=== PATIENT | male | born 1950 | race Caucasian/White ===

== ENCOUNTER 2020-08-08 07:24 | Outpatient (REF) | payer MEDICARE, OTHER, SELFPAY ==
[2020-08-08 08:25] LABS: MANUAL DIFF FLAG NO
[2020-08-08 08:29] LABS: Basophils Percent Auto 0.6 % (0-2); Eosinophils Absolute Auto 0.4 X10*3/uL (0.0-0.4); Eosinophils Percent Auto 6.4 % (0-4); Hematocrit 42.7 % (42-52); Hemoglobin 13.6 g/dl (14.0-18.0); Imm Gran Abs Auto 0.02 X10*3/uL (0.00-0.03); Imm Gran Pct Auto 0.3 % (0.0-0.4); Lymphocytes Absolute Auto 2.3 X10*3/uL (1.2-4.9); Lymphocytes Percent Auto 33.5 % (20-40); Mean Corpuscular HGB Conc 31.9 g/dl (31.0-36.0); Mean Corpuscular Hemoglobin 30.4 pg (27.0-33.0); Mean Corpuscular Volume 95.5 fL (80-98); Mean Platelet Volume 9.6 fL (9.4-12.4); Monocytes Absolute Auto 0.5 X10*3/uL (0.1-1.2); Monocytes Percent Auto 6.7 % (2-11); Neutrophils Absolute Auto 3.6 X10*3/uL (2.0-8.3); Neutrophils Percent Auto 52.5 % (45-73); Platelet Count 259 X10*3/uL (160-400); Red Blood Count 4.47 X10*6/uL (4.60-5.80); Red Cell Distribution Width 13.2 % (11.0-16.0); White Blood Count 6.8 X10*3/uL (4.8-10.8)
[2020-08-08 08:44] LABS: Alanine Aminotransferase 28 U/L (0-40); Albumin Level 4.3 g/dL (3.5-5.0); Alkaline Phosphatase 72 U/L (39-117); Anion Gap 11 (12-20); Aspartate Amino Transferase 34 U/L (5-37); Bilirubin Total 0.4 mg/dL (0.0-1.0); Blood Urea Nitrogen 17 mg/dL (9-16); Calcium 8.8 mg/dL (8.4-10.2); Carbon Dioxide 30 mmol/L (22-29); Chloride 107 mmol/L (96-108); Cholesterol 156 mg/dL; Estimated Glomerular Filt Rate > 60; Glucose Random 109 mg/dL (60-115); HDL Cholesterol 66 mg/dL; LDL Cholesterol Calculated 75 mg/dl; Potassium 4.9 mmol/l (3.3-5.1); Sodium 143 mmol/L (135-145); Total Protein 6.5 g/dL (6.5-8.0); Triglycerides 75 mg/dL
[2020-08-08 09:07] LABS: Free T4 (Free Thyroxine) 0.99 ng/dL (0.71-1.85); Prostate Specific Antigen Scr 3.85 ng/mL (<0.05-4.0); Thyroid Stimulating Hormone 2.78 mIU/mL (0.32-4.0)
[2020-08-08 09:20] LABS: Folate 18.7 ng/mL (> or = 4.0); Vitamin B12 587 pg/mL (200-900)
== END 2020-08-08 07:25 | disposition home or self-care (01) ==
LOC: HO.LAB 07:24
PROVIDERS: Visit Provider Internal Medicine
DX: E78.00 Pure hypercholesterolemia, unspecified (principal); R73.01 Impaired fasting glucose; I25.10 Atherosclerotic heart disease of native coronary artery without angina pectoris
CPT/HCPCS: 36415; 80053; 80061; 82607; 82746; 84153; 84439; 84443; 85025

== ENCOUNTER 2020-09-11 11:31 | Outpatient (REF) | payer MEDICARE, OTHER, SELFPAY ==
[2020-09-11 12:58] LABS: MANUAL DIFF FLAG NO
[2020-09-11 13:05] LABS: Basophils Percent Auto 0.4 % (0-2); Eosinophils Absolute Auto 0.3 X10*3/uL (0.0-0.4); Eosinophils Percent Auto 3.7 % (0-4); Hematocrit 44.4 % (42-52); Hemoglobin 14.3 g/dl (14.0-18.0); Imm Gran Abs Auto 0.02 X10*3/uL (0.00-0.03); Imm Gran Pct Auto 0.3 % (0.0-0.4); Immature Retic Fraction 8.4 % (2.3-13.4); Lymphocytes Absolute Auto 2.5 X10*3/uL (1.2-4.9); Lymphocytes Percent Auto 37.3 % (20-40); Mean Corpuscular HGB Conc 32.2 g/dl (31.0-36.0); Mean Corpuscular Hemoglobin 30.2 pg (27.0-33.0); Mean Corpuscular Volume 93.7 fL (80-98); Monocytes Absolute Auto 0.4 X10*3/uL (0.1-1.2); Monocytes Percent Auto 6.6 % (2-11); Neutrophils Absolute Auto 3.5 X10*3/uL (2.0-8.3); Neutrophils Percent Auto 51.7 % (45-73); Platelet Count 249 X10*3/uL (160-400); Red Blood Count 4.74 X10*6/uL (4.60-5.80); Red Cell Distribution Width 13.2 % (11.0-16.0); Retic HGB Equivalent 34.5 pg (30.0-35.0); Reticulocyte Percent 1.8 % (0.5-1.8); Reticulocytes Absolute 0.084 X10*6/uL (0.026-0.095); White Blood Count 6.7 X10*3/uL (4.8-10.8)
[2020-09-11 13:51] LABS: Iron 114 mcg/dL (45-160); Percent Iron Saturation 40 % (15-50); Total Iron Binding Capacity 286 mcg/dL (228-428); Unsaturated Iron Binding 172 ug/dL
[2020-09-11 14:13] LABS: Ferritin 37 ng/mL (20-250)
== END 2020-09-11 11:32 | disposition home or self-care (01) ==
LOC: HO.LAB 11:31
PROVIDERS: PCP Internal Medicine; Visit Provider Internal Medicine
DX: D64.9 Anemia, unspecified (principal)
CPT/HCPCS: 36415; 82728; 83540; 85025; 85045

== ENCOUNTER → 2021-01-15 15:15 | Outpatient (BNVA) | payer MEDICARE, OTHER, SELFPAY | PROVIDERS: PCP Internal Medicine; Visit Provider Urology | DX: Z13.89 Encounter for screening for other disorder (principal) | CPT/HCPCS: Q3014 ==

== ENCOUNTER 2021-08-05 06:54 | Outpatient (REF) | payer MEDICARE, OTHER, SELFPAY ==
[2021-08-05 07:02] LABS: MANUAL DIFF FLAG NO
[2021-08-05 07:29] LABS: Basophils Percent Auto 0.6 % (0-2); Eosinophils Absolute Auto 0.3 X10*3/uL (0.0-0.4); Eosinophils Percent Auto 4.7 % (0-4); Hematocrit 42.6 % (42.0-52.0); Hemoglobin 13.9 g/dl (14.0-18.0); Imm Gran Abs Auto 0.02 X10*3/uL (0.00-0.03); Imm Gran Pct Auto 0.3 % (0.0-0.4); Lymphocytes Percent Auto 40.9 % (20-40); Mean Corpuscular HGB Conc 32.6 g/dl (31.0-36.0); Mean Corpuscular Hemoglobin 29.6 pg (27.0-33.0); Mean Corpuscular Volume 90.8 fL (80.0-98.0); Mean Platelet Volume 9.2 fL (9.4-12.4); Monocytes Absolute Auto 0.5 X10*3/uL (0.1-1.2); Monocytes Percent Auto 7.5 % (2-11); Neutrophils Absolute Auto 3.34 x10*3/uL (2.0-8.3); Platelet Count 252 X10*3/uL (160-400); Red Blood Count 4.69 X10*6/uL (4.60-5.80); White Blood Count 7.2 X10*3/uL (4.8-10.8)
[2021-08-05 07:51] LABS: Estimated Average Glucose 117 mg/dL; Hemoglobin A1c % 5.7 %
[2021-08-05 07:57] LABS: Alanine Aminotransferase 29 U/L (0-40); Albumin Level 4.3 g/dL (3.5-5.0); Alkaline Phosphatase 69 U/L (39-117); Anion Gap 10 (12-20); Aspartate Amino Transferase 33 U/L (5-37); Bilirubin Total 0.6 mg/dL (0.0-1.0); Blood Urea Nitrogen 15 mg/dL (9-16); Calcium 9.2 mg/dL (8.4-10.2); Carbon Dioxide 30 mmol/L (22-29); Chloride 106 mmol/L (96-108); Cholesterol 146 mg/dL; Estimated Glomerular Filt Rate > 60; Glucose Random 103 mg/dL (60-115); HDL Cholesterol 52 mg/dL; LDL Cholesterol Calculated 77 mg/dl; Potassium 4.7 mmol/L (3.3-5.1); Sodium 141 mmol/L (135-145); Total Protein 6.4 g/dL (6.5-8.0); Triglycerides 89 mg/dL
[2021-08-05 08:13] LABS: Free T4 (Free Thyroxine) 0.94 ng/dL (0.71-1.85)
[2021-08-05 08:23] LABS: Thyroid Stimulating Hormone 3.87 uIU/mL (0.32-4.0)
[2021-08-05 08:48] LABS: Folate > 20.0 ng/mL (> or = 4.0); Vitamin B12 611 pg/mL (200-900)
[2021-08-06 13:11] LABS: Free Prostate Spec Ag 1.1 ng/mL; Percent Free Prostate Spec Ag 26 % (calc) (>25); Prostate Specific Ag Total 4.2 ng/mL (< OR = 4.0)
== END 2021-08-05 06:55 | disposition home or self-care (01) ==
LOC: HO.LAB 06:54
PROVIDERS: Urology; PCP Internal Medicine; Visit Provider Internal Medicine
DX: E78.00 Pure hypercholesterolemia, unspecified (principal); I25.10 Atherosclerotic heart disease of native coronary artery without angina pectoris; R73.01 Impaired fasting glucose; R97.20 Elevated prostate specific antigen [PSA]; N40.1 Benign prostatic hyperplasia with lower urinary tract symptoms; N13.8 Other obstructive and reflux uropathy; Z12.5 Encounter for screening for malignant neoplasm of prostate
CPT/HCPCS: 36415; 80053; 80061; 82607; 82746; 83036; 84153; 84154; 84439; 84443; 85025

== ENCOUNTER 2022-01-08 09:47 | Outpatient (REF) | payer MEDICARE, OTHER, SELFPAY ==
[2022-01-08 12:03] LABS: PSA,Total (Free>4and<10) 4.57 ng/mL (0.00-4.00)
[2022-01-09 12:07] LABS: Free Prostate Spec Ag 1.1 ng/mL; Percent Free Prostate Spec Ag 27 % (calc) (>25); Prostate Specific Ag Total 4.1 ng/mL (< OR = 4.0)
== END 2022-01-08 09:48 | disposition home or self-care (01) ==
LOC: HO.LAB 09:47
PROVIDERS: PCP Internal Medicine; Visit Provider Urology
DX: Z12.5 Encounter for screening for malignant neoplasm of prostate (principal); R97.20 Elevated prostate specific antigen [PSA]
CPT/HCPCS: 36415; 84153; 84154

== ENCOUNTER → 2022-01-16 14:39 | Outpatient (BNVA) | payer MEDICARE, OTHER, SELFPAY | PROVIDERS: PCP Internal Medicine; Visit Provider Urology | DX: N40.1 Benign prostatic hyperplasia with lower urinary tract symptoms (principal); N13.8 Other obstructive and reflux uropathy; R97.20 Elevated prostate specific antigen [PSA] | CPT/HCPCS: 99212 ==

== ENCOUNTER 2022-03-04 07:10 | Day surgery (SDC) | payer MEDICARE, OTHER, SELFPAY ==
[2022-02-26 11:11] VITALS: BMI 26.1
--- NOTE | 2022-03-03 12:48 | HO.ANESPROP2 ---
Documented by User: Kalyani Green NP 03/03/22 12:50 HPI - Anesthesia Eval Consult details Narrative: 71yo M for Colonoscopy stable at yearly cardiac visit 03/2021 COUNT INCLUDES THE [facility] Active Problems Active Problems: All Active Problems (Updated 02/26/22 @ 11:16 by Fidelina Gunn, GOYO) Annual physical exam (Acute) Anemia (Acute) Annual physical exam (Acute) Impacted cerumen of both ears (Acute) Hemorrhoid (Acute) BPH w urinary obs/LUTS (Acute) Foot pain, left (Acute) PSA elevation (Acute) Cardiomyopathy (Acute) Hypercholesterolemia (Acute) Impaired fasting glucose (Acute) Coronary artery disease (Acute) Past Medical History Medical History Cardiomyopathy Coronary artery disease COVID-19 vaccine series completed Hypercholesterolemia Impaired fasting glucose Mercury poisoning Patent foramen ovale PSA elevation Skin cancer Thrombophlebitis Family History Family History Father CHF (congestive heart failure) CAD (coronary artery disease) CVD (cardiovascular disease) Skin cancer Mother CVD (cardiovascular disease) Acute CVA (cerebrovascular accident) Paternal Grandfather Acute CVA (cerebrovascular accident) Maternal Grandfather CAD (coronary artery disease) Surgical History Surgical History H/O colonoscopy History of surgery Social History Social History Housing: House Alcohol intake: current Patient Tobacco Use Status: Never used Tobacco e-Cigarette/Vaping Use: Never Used Second Hand Smoke Exposure: No Use of substances other than those prescribed or required for medical reasons: No Are you DNR?: No Advance Directives: No Advance Directives Information Provided: Yes Current occupational status: retired [employer] Allergies Allergy/AdvReac Type Severity Reaction Status Date / Time No Known Allergies Allergy Verified 01/16/22 14:43 Home Medications Medication Instructions Recorded Confirmed Last Taken Type aspirin 81 mg tablet,delayed 81 mg PO DAILY 08/12/20 02/26/22 Unknown History release (Adult Aspirin Regimen) multivitamin,tx-minerals 1 cap PO DAILY 08/12/20 02/26/22 Unknown History (Multi-Vitamin HP/Minerals) cetirizine 10 mg tablet (Zyrtec) 10 mg PO DAILY PRN 08/13/21 02/26/22 Unknown History Exam Exam Date and Time: March 03, 2022 1248 Height,Weight and Vital Signs: Height 5 ft 5.25 in Weight 71.668 kg Assessment and Plan Assessment Anesthesia Assessment: Chart Reviewed Documented by User: Vickie Shirley MD 03/04/22 09:28 PMFSH Active Problems Active Problems: All Active Problems (Updated 02/26/22 @ 11:16 by Fidelina Gunn RN) Annual physical exam (Acute) Anemia (Acute) Annual physical exam (Acute) Impacted cerumen of both ears (Acute) Hemorrhoid (Acute) BPH w urinary obs/LUTS (Acute) Foot pain, left (Acute) PSA elevation (Acute) Cardiomyopathy (Acute) Hypercholesterolemia (Acute) Impaired fasting glucose (Acute) Coronary artery disease. Denies recent chest pain Past Medical History Medical History Cardiomyopathy Coronary artery disease COVID-19 vaccine series completed Hypercholesterolemia Impaired fasting glucose Mercury poisoning Patent foramen ovale PSA elevation Skin cancer Thrombophlebitis Family History Family History Father CHF (congestive heart failure) CAD (coronary artery disease) CVD (cardiovascular disease) Skin cancer Mother CVD (cardiovascular disease) Acute CVA (cerebrovascular accident) Paternal Grandfather Acute CVA (cerebrovascular accident) Maternal Grandfather CAD (coronary artery disease) Family history of problems with anesthesia: No Surgical History Surgical History H/O colonoscopy History of surgery History of Problems with Anesthesia: No Social History Social History Housing: House Alcohol intake: current Patient Tobacco Use Status: Never used Tobacco e-Cigarette/Vaping Use: Never Used Second Hand Smoke Exposure: No Use of substances other than those prescribed or required for medical reasons: No Are you DNR?: No Advance Directives: No Advance Directives Information Provided: Yes Current occupational status: retired Meds Allergies Allergy/AdvReac Type Severity Reaction Status Date / Time No Known Allergies Allergy Verified 01/16/22 14:43 Home Medications Medication Instructions Recorded Confirmed Last Taken Type aspirin 81 mg tablet,delayed 81 mg PO DAILY 08/12/20 02/26/22 Unknown History release (Adult Aspirin Regimen) multivitamin,tx-minerals 1 cap PO DAILY 08/12/20 02/26/22 Unknown History (Multi-Vitamin HP/Minerals) cetirizine 10 mg tablet (Zyrtec) 10 mg PO DAILY PRN 08/13/21 02/26/22 Unknown History Exam Height,Weight and Vital Signs: Height 5 ft 5.25 in Weight 71.668 kg Vital Signs Temp Pulse Resp BP Pulse Ox 03/04/22 07:52 97.8 F 66 17 135/84 95 Airway Mallampati Class: II TM Dist: >3cm Neck ROM: Full Loose/Missing/Broken Teeth: No Heart: RRR Lungs: CTAB Assessment and Plan Assessment Anesthesia Assessment: Anesthesia Plan Discussed Final Anesthetic Review Family History of Problems with Anesthesia: No History of Problems with Anesthesia: No NPO: Yes ASA Class: III Final Preanesthetic Review: No Changes in Pt Med Stat, Meds/Allgs Chart Reviewed, Consent Obtained/Reviewed and Anes Risks/Benef Reviewed Patient Risk: Intermediate Procedure Risk: Low Assessment/Block/Sedation in SS: Assess/Block/Sedation-SS Anesthetic Plan Anesthetic Plan: MAC: Disposition: Standard PACU
[2022-03-04 07:25] VITALS: BMI 25.7
[2022-03-04 07:52] VITALS: BP 135/84; PULSE 66; RESP 17; TEMP 36.6; O2SAT 95
[2022-03-04] MEDS: Lactated Ringers 1,000 ML 50 ML IVCONT (08:08)
--- NOTE | 2022-03-04 10:19 | PM.OP ---
Brief Operative Note Date of Service: 03/04/22 Pre-op diagnosis: Screening Post-op diagnosis: other (Polyp) Procedure: Colonoscopy to the cecum with hot snare polypectomy and placement of 1 Resolution clip Surgeon: Cyrus Garvey Anesthesia: MAC Was an Picker Machine Operator used for this Procedure?: No Estimated blood loss (mL): 0 Pathology: other (A. Ascending colon polyp) Condition: stable Disposition: PACU
[2022-03-04 10:20] VITALS: BP 99/58; PULSE 61; RESP 16; TEMP 36.2; O2SAT 98
[2022-03-04 10:35] VITALS: BP 135/73; PULSE 56; RESP 16; TEMP 36.2; O2SAT 100
--- NOTE | 2022-03-04 10:52 | OP_ITS ---
SURGEON: Cyrus Garvey MD INDICATIONS: The patient presents for evaluation of personal history of tubular adenoma of the colon and colorectal cancer screening. Full consent was obtained from him for this, including risks of bleeding and perforation. PREOPERATIVE DIAGNOSIS: POSTOPERATIVE DIAGNOSIS: PROCEDURE PERFORMED: Colonoscopy to the cecum with hot snare polypectomy and placement of 1 Resolution clip. ESTIMATED BLOOD LOSS: COMPLICATIONS: ANESTHESIA: Monitored anesthesia care. ASSISTANTS: SPECIMENS: PREOPERATIVE DIAGNOSES: Personal history of tubular adenoma of the colon and colorectal cancer screening. POSTOPERATIVE DIAGNOSES: Personal history of tubular adenoma of the colon and colorectal cancer screening, colon polyp, diverticulosis, internal hemorrhoids. DESCRIPTION OF PROCEDURE: The patient was placed in the left lateral decubitus position. The digital rectal exam revealed some external hemorrhoidal tissue and a skin tag. The Olympus video pediatric colonoscope was entered into the rectum and advanced easily to the cecum. Once in the cecum, I did identify normal-appearing cecal pouch with appendiceal orifice and a normal-appearing ileocecal valve. The entire cecum and ileocecal valve appeared normal. The scope was then slowly withdrawn assessing all mucosal surfaces carefully. Preparation was excellent. In the proximal ascending colon was an approximately 10 mm polyp, which was removed by hot snare polypectomy and recovered by suction. The polypectomy site appeared clean, without any sign of residual polyp nor bleeding. A single Resolution clip was applied with good deployment and good hemostasis. I did not visualize any other polyps, colitis, or angiodysplasia. There was a mild amount of sigmoid diverticulosis. In the rectum, scope was retroflexed visualizing small internal hemorrhoids, but no other pathology. The rectal mucosa appeared normal. The scope was straightened and withdrawn from the patient. He tolerated the procedure well and was returned to the recovery area in stable condition. IMPRESSION: 1. Colon polyp. 2. Diverticulosis. 3. Internal and external hemorrhoids. PLAN: The results of the pathology will be checked. I would recommend a repeat colonoscopy in 5 years. He was advised to resume his aspirin in 48 hours. He will otherwise see me on a p.r.n. basis. MD ANJEL Bolton/LISA / [id number] MTDRosa M
== END 2022-03-04 11:25 | disposition home or self-care (01) ==
PROVIDERS: PCP Internal Medicine; Visit Provider Internal Medicine
PROC: 0DJD8ZZ Inspection of Lower Intestinal Tract, Via Natural or Artificial Opening Endoscopic (ICD-10-PCS; CPT 45378; principal; 2022-03-04 08:20)
DX: Z12.11 Encounter for screening for malignant neoplasm of colon (principal); Z86.010 Personal history of colon polyps; D12.2 Benign neoplasm of ascending colon; K57.30 Diverticulosis of large intestine without perforation or abscess without bleeding; K64.8 Other hemorrhoids; K64.4 Residual hemorrhoidal skin tags; I42.9 Cardiomyopathy, unspecified; E78.5 Hyperlipidemia, unspecified; Z79.82 Long term (current) use of aspirin; Z79.899 Other long term (current) drug therapy; Z85.828 Personal history of other malignant neoplasm of skin
CPT/HCPCS: 45385; 88305

== ENCOUNTER 2022-07-14 09:33 | Outpatient (REF) | payer MEDICARE, OTHER, SELFPAY ==
[2022-07-14 10:56] LABS: PSA,Total (Free>4and<10) 2.07 ng/mL (0.00-4.00)
== END 2022-07-14 09:34 | disposition home or self-care (01) ==
LOC: HO.LAB 09:33
PROVIDERS: PCP Internal Medicine; Visit Provider Urology
DX: Z12.5 Encounter for screening for malignant neoplasm of prostate (principal); N13.8 Other obstructive and reflux uropathy; R97.20 Elevated prostate specific antigen [PSA]; N40.1 Benign prostatic hyperplasia with lower urinary tract symptoms
CPT/HCPCS: 36415; 84153

== ENCOUNTER → 2022-07-28 15:43 | Outpatient (BNVA) | payer MEDICARE, OTHER, SELFPAY | PROVIDERS: PCP Internal Medicine; Visit Provider Urology | DX: N40.1 Benign prostatic hyperplasia with lower urinary tract symptoms (principal); N13.8 Other obstructive and reflux uropathy; R97.20 Elevated prostate specific antigen [PSA] | CPT/HCPCS: 99212 ==

== ENCOUNTER 2022-08-25 08:06 | Outpatient (REF) | payer MEDICARE, OTHER, SELFPAY ==
[2022-08-25 08:21] LABS: MANUAL DIFF FLAG NO
[2022-08-25 08:48] LABS: Basophils Percent Auto 0.4 % (0-2); Eosinophils Absolute Auto 0.3 X10*3/uL (0.0-0.4); Eosinophils Percent Auto 4.3 % (0-4); Hematocrit 43.5 % (42.0-52.0); Hemoglobin 13.9 g/dl (14.0-18.0); Imm Gran Abs Auto 0.03 X10*3/uL (0.00-0.03); Imm Gran Pct Auto 0.4 % (0.0-0.4); Lymphocytes Absolute Auto 2.7 X10*3/uL (1.2-4.9); Lymphocytes Percent Auto 36.4 % (20-40); Mean Corpuscular Hemoglobin 29.5 pg (27.0-33.0); Mean Corpuscular Volume 92.4 fL (80.0-98.0); Mean Platelet Volume 9.2 fL (9.4-12.4); Monocytes Absolute Auto 0.5 X10*3/uL (0.1-1.2); Monocytes Percent Auto 6.7 % (2-11); Neutrophils Absolute Auto 3.8 x10*3/uL (2.0-8.3); Neutrophils Percent Auto 51.8 % (45-73); Platelet Count 311 X10*3/uL (160-400); Red Blood Count 4.71 X10*6/uL (4.60-5.80); Red Cell Distribution Width 13.2 % (11.0-16.0); White Blood Count 7.4 X10*3/uL (4.8-10.8)
[2022-08-25 08:52] LABS: Estimated Average Glucose 120 mg/dL; Hemoglobin A1c % 5.8 %
[2022-08-25 09:22] LABS: Alanine Aminotransferase 33 U/L (0-40); Albumin Level 4.1 g/dL (3.5-5.0); Alkaline Phosphatase 77 U/L (39-117); Anion Gap 12 (12-20); Aspartate Amino Transferase 36 U/L (5-37); Bilirubin Total 0.5 mg/dL (0.0-1.0); Blood Urea Nitrogen 20 mg/dL (9-16); Calcium 9.1 mg/dL (8.4-10.2); Carbon Dioxide 28 mmol/L (22-29); Chloride 106 mmol/L (96-108); Cholesterol 139 mg/dL; Estimated Glomerular Filt Rate > 60; Glucose Random 107 mg/dL (60-115); HDL Cholesterol 48 mg/dL; LDL Cholesterol Calculated 81 mg/dl; Potassium 5.1 mmol/L (3.3-5.1); Sodium 141 mmol/L (135-145); Total Protein 6.3 g/dL (6.5-8.0); Triglycerides 52 mg/dL
[2022-08-25 09:43] LABS: Free T4 (Free Thyroxine) 0.98 ng/dL (0.71-1.85); Thyroid Stimulating Hormone 2.51 uIU/mL (0.32-4.0)
[2022-08-25 10:16] LABS: Folate 15.5 ng/mL (> or = 4.0); Vitamin B12 646 pg/mL (200-900)
== END 2022-08-25 08:07 | disposition home or self-care (01) ==
LOC: HO.LAB 08:06
PROVIDERS: PCP Internal Medicine; Visit Provider Internal Medicine
DX: R73.01 Impaired fasting glucose (principal); E78.00 Pure hypercholesterolemia, unspecified
CPT/HCPCS: 36415; 80053; 80061; 82607; 82746; 83036; 84439; 84443; 85025

== ENCOUNTER 2023-01-12 11:03 | Outpatient (REF) | payer MEDICARE, OTHER, SELFPAY ==
[2023-01-12 12:51] LABS: PSA,Total (Free>4and<10) 2.34 ng/mL (0.00-4.00)
== END 2023-01-12 11:04 | disposition home or self-care (01) ==
LOC: HO.LAB 11:03
PROVIDERS: PCP Internal Medicine; Visit Provider Urology
DX: N40.1 Benign prostatic hyperplasia with lower urinary tract symptoms (principal); N13.8 Other obstructive and reflux uropathy; Z12.5 Encounter for screening for malignant neoplasm of prostate
CPT/HCPCS: 36415; 84153

== ENCOUNTER → 2023-01-26 13:50 | Outpatient (BNVA) | payer MEDICARE, OTHER, SELFPAY | PROVIDERS: PCP Internal Medicine; Visit Provider Urology | DX: N40.1 Benign prostatic hyperplasia with lower urinary tract symptoms (principal); N13.8 Other obstructive and reflux uropathy; R97.20 Elevated prostate specific antigen [PSA] | CPT/HCPCS: 51798; 99212 ==

== ENCOUNTER 2023-03-27 10:12 | Emergency (ER) | payer MEDICARE, OTHER, SELFPAY ==
[2023-03-27 10:18] VITALS: BP 137/68; PULSE 60; RESP 14; TEMP 36.2; O2SAT 99; BMI 25.3
[2023-03-27 11:03] LABS: MANUAL DIFF FLAG NO
[2023-03-27 11:05] LABS: Basophils Percent Auto 0.6 % (0-2); Eosinophils Absolute Auto 0.5 X10*3/uL (0.0-0.4); Eosinophils Percent Auto 6.6 % (0-4); Hematocrit 43.7 % (42.0-52.0); Hemoglobin 14.5 g/dl (14.0-18.0); Imm Gran Abs Auto 0.01 X10*3/uL (0.00-0.03); Imm Gran Pct Auto 0.1 % (0.0-0.4); Lymphocytes Absolute Auto 2.7 X10*3/uL (1.2-4.9); Lymphocytes Percent Auto 37.7 % (20-40); Mean Corpuscular HGB Conc 33.2 g/dl (31.0-36.0); Mean Corpuscular Hemoglobin 30.3 pg (27.0-33.0); Mean Corpuscular Volume 91.4 fL (80.0-98.0); Mean Platelet Volume 9.2 fL (9.4-12.4); Monocytes Absolute Auto 0.5 X10*3/uL (0.1-1.2); Neutrophils Absolute Auto 3.4 x10*3/uL (2.0-8.3); Platelet Count 220 X10*3/uL (160-400); Red Blood Count 4.78 X10*6/uL (4.60-5.80); Red Cell Distribution Width 12.9 % (11.0-16.0); White Blood Count 7.1 X10*3/uL (4.8-10.8)
[2023-03-27 11:12] LABS: INTERNATIONAL NORM RATIO 1.1 (0.9-1.1); Prothrombin Time 13.2 SEC (10.0-13.1)
[2023-03-27 11:24] LABS: Alanine Aminotransferase 32 U/L (0-40); Albumin Level 4.3 g/dL (3.5-5.0); Alkaline Phosphatase 66 U/L (39-117); Anion Gap 12 (12-20); Aspartate Amino Transferase 37 U/L (5-37); Blood Urea Nitrogen 17 mg/dL (9-16); Calcium 9.8 mg/dL (8.4-10.2); Carbon Dioxide 27 mmol/L (22-29); Chloride 106 mmol/L (96-108); Creatinine Clr Calc Pharmacy 63.1; Estimated Glomerular Filt Rate > 60; Glucose Random 83 mg/dL (60-115); Potassium 4.5 mmol/L (3.3-5.1); Sodium 140 mmol/L (135-145); Total Protein 6.7 g/dL (6.5-8.0)
--- NOTE | 2023-03-27 11:33 | ED_ITS ---
HPI - Wound/Laceration General Chief Complaint: Wound/Laceration Stated Complaint: facial laceration Time Seen by Provider: 03/27/23 11:04 History of Present Illness HPI narrative: patient who is on Eliquis complains of bleeding from abrasion to the lower lip which was hard to control at home and he comes here for evaluation The bleeding did stop prior to when I saw him, he denies any other bleeding or bruising Related Data Home Medications Medication Instructions Recorded Confirmed aspirin 81 mg tablet,delayed 81 mg PO DAILY 08/12/20 01/26/23 release (Adult Aspirin Regimen) multivitamin,tx-minerals 1 cap PO DAILY 08/12/20 01/26/23 (Multi-Vitamin HP/Minerals capsule) apixaban 5 mg tablet 5 mg PO BID 01/25/23 01/26/23 mometasone 50 mcg/actuation nasal 2 spray intranasal BID 01/25/23 01/26/23 spray Previous Rx's Medication Instructions Recorded atorvastatin 80 mg tablet 80 mg PO DAILY #90 tabs 07/02/22 metoprolol succinate 25 mg 25 mg PO DAILY #90 tabs 01/25/23 tablet,extended release 24 hr finasteride 5 mg tablet 5 mg PO DAILY 90 days #90 tabs 01/26/23 lisinopril 10 mg tablet 10 mg PO DAILY #90 tabs 02/04/23 ezetimibe 10 mg tablet (Zetia) 10 mg PO DAILY 90 days #90 tabs 03/02/23 Allergies Allergy/AdvReac Type Severity Reaction Status Date / Time No Known Allergies Allergy Verified 01/26/23 13:53 [facility] Past Medical History Source: nursing notes reviewed Medical History Annual physical exam Cardiomyopathy Coronary artery disease COVID-19 vaccine series completed Hypercholesterolemia Impaired fasting glucose Mercury poisoning Patent foramen ovale PSA elevation Skin cancer Thrombophlebitis Surgical History H/O colonoscopy History of surgery Family History Family History Father CHF (congestive heart failure) CAD (coronary artery disease) CVD (cardiovascular disease) Skin cancer Mother CVD (cardiovascular disease) Acute CVA (cerebrovascular accident) Paternal Grandfather Acute CVA (cerebrovascular accident) Maternal Grandfather CAD (coronary artery disease) Social History Social History Housing: House Alcohol intake: current Patient Tobacco Use Status: Never used Tobacco e-Cigarette/Vaping Use: Never Used Second Hand Smoke Exposure: No Advance Directives: Yes Advance Directives Information Provided: No Advance Directives on File: No Current occupational status: retired Cognitive needs: No Hearing needs: No Vision needs: Yes Physical Exam Vital Signs: Vital Signs: Last Vital Signs Temp 97.1 F 03/27/23 10:18 Pulse 60 03/27/23 10:18 Resp 14 03/27/23 10:18 BP 137/68 03/27/23 10:18 Pulse Ox 99 03/27/23 10:18 O2 Del Method Room Air 03/27/23 10:18 BMI result Body Mass Index 25.3 general appearance is com cooperative no distress Head is normocephalic atraumatic The exam of the face there is a small blood blister on the lower lip there is no active bleeding there is no suturable wound No respiratory distress Skin no obvious rash Extremities full range of motion x4 Course Course Course Narrative: CBC chemistry and INR all checked from triage and no acute abnormality Patient observed in the ER for half an hour with no recurrence of bleeding He is advised to apply direct pressure with a piece of gauze of any bleeding starts and he is discharged advised to continue Eliquis as scheduled Medical Decision Making Lab Data MDM Lab Attestation statement: I reviewed the patient's lab results. 03/27/23 11:00 03/27/23 11:00 Labs: Lab Results 03/27/23 03/27/23 03/27/23 Range/Units 11:00 11:00 11:00 WBC 7.1 (4.8-10.8) X10*3/uL RBC 4.78 (4.60-5.80) X10*6/uL Hgb 14.5 (14.0-18.0) g/dl Hct 43.7 (42.0-52.0) % MCV 91.4 (80.0-98.0) fL MCH 30.3 (27.0-33.0) pg MCHC 33.2 (31.0-36.0) g/dl RDW 12.9 (11.0-16.0) % Plt Count 220 D (160-400) X10*3/uL MPV 9.2 L (9.4-12.4) fL Immature Gran % (Auto) 0.1 (0.0-0.4) % Neut % (Auto) 48.0 (45-73) % Lymph % (Auto) 37.7 (20-40) % [place] % (Auto) 7.0 (2-11) % Eos % (Auto) 6.6 H (0-4) % Baso % (Auto) 0.6 (0-2) % Lymph # (Auto) 2.7 (1.2-4.9) X10*3/uL [place] # (Auto) 0.5 (0.1-1.2) X10*3/uL Eos # (Auto) 0.5 H (0.0-0.4) X10*3/uL Baso # (Auto) 0.0 (0.0-0.2) X10*3/uL Abs Immat Gran (auto) 0.01 (0.00-0.03) X10*3/uL Absolute Neuts (auto) 3.4 (2.0-8.3) x10*3/uL Absolute Nucleated RBC 0.000 (0.0-0.012) X10*3/uL Nucleated RBC % (auto) 0.0 (0.0-0.2) /100WBC PT (10.0-13.1) SEC INR (0.9-1.1) APTT 30.0 (26.0-36.4) SEC Sodium 140 (135-145) mmol/L Potassium 4.5 (3.3-5.1) mmol/L Chloride 106 (96-108) mmol/L Carbon Dioxide 27 (22-29) mmol/L Anion Gap 12 (12-20) BUN 17 H (9-16) mg/dL Creatinine 0.94 (0.5-1.4) mg/dL Estim Creat Clear Calc 63.1 Estimated GFR > 60 Random Glucose 83 (60-115) mg/dL Calcium 9.8 D (8.4-10.2) mg/dL Total Bilirubin 1.0 (0.0-1.0) mg/dL AST 37 (5-37) U/L ALT 32 (0-40) U/L Alkaline Phosphatase 66 (39-117) U/L Total Protein 6.7 (6.5-8.0) g/dL Albumin 4.3 (3.5-5.0) g/dL 03/27/23 Range/Units 11:00 WBC (4.8-10.8) X10*3/uL RBC (4.60-5.80) X10*6/uL Hgb (14.0-18.0) g/dl Hct (42.0-52.0) % MCV (80.0-98.0) fL MCH (27.0-33.0) pg MCHC (31.0-36.0) g/dl RDW (11.0-16.0) % Plt Count (160-400) X10*3/uL MPV (9.4-12.4) fL Immature Gran % (Auto) (0.0-0.4) % Neut % (Auto) (45-73) % Lymph % (Auto) (20-40) % [place] % (Auto) (2-11) % Eos % (Auto) (0-4) % Baso % (Auto) (0-2) % Lymph # (Auto) (1.2-4.9) X10*3/uL [place] # (Auto) (0.1-1.2) X10*3/uL Eos # (Auto) (0.0-0.4) X10*3/uL Baso # (Auto) (0.0-0.2) X10*3/uL Abs Immat Gran (auto) (0.00-0.03) X10*3/uL Absolute Neuts (auto) (2.0-8.3) x10*3/uL Absolute Nucleated RBC (0.0-0.012) X10*3/uL Nucleated RBC % (auto) (0.0-0.2) /100WBC PT 13.2 H (10.0-13.1) SEC INR 1.1 (0.9-1.1) APTT (26.0-36.4) SEC Sodium (135-145) mmol/L Potassium (3.3-5.1) mmol/L Chloride (96-108) mmol/L Carbon Dioxide (22-29) mmol/L Anion Gap (12-20) BUN (9-16) mg/dL Creatinine (0.5-1.4) mg/dL Estim Creat Clear Calc Estimated GFR Random Glucose (60-115) mg/dL Calcium (8.4-10.2) mg/dL Total Bilirubin (0.0-1.0) mg/dL AST (5-37) U/L ALT (0-40) U/L Alkaline Phosphatase (39-117) U/L Total Protein (6.5-8.0) g/dL Albumin (3.5-5.0) g/dL Discharge Plan Discharge Clinical Impression: Abrasion Patient Disposition: Home, Self-Care Additional Instructions: labs were fine The bleeding stopped on its own If there is any further bleeding just apply direct pressure and that will almost certainly stop it Return any time any worse condition or any concerns Prescriptions: No Action atorvastatin 80 mg tablet 80 mg PO DAILY Qty: 90 3RF finasteride 5 mg tablet 5 mg PO DAILY 90 Days Qty: 90 1RF lisinopril 10 mg tablet 10 mg PO DAILY Qty: 90 2RF ezetimibe [Zetia] 10 mg tablet 10 mg PO DAILY 90 Days Qty: 90 1RF aspirin [Adult Aspirin Regimen] 81 mg tablet,delayed release (DR/EC) 81 mg PO DAILY Multi-Vitamin HP/Minerals Capsule 1 cap PO DAILY mometasone 50 mcg/actuation spray,non-aerosol 2 spray intranasal BID Rx Instructions: administer into each nostril apixaban 5 mg tablet 5 mg PO BID metoprolol succinate 25 mg tablet extended release 24 hr 25 mg PO DAILY Qty: 90 2RF Interventions: ED Discharge Assessment Last Done: 03/27/23 11:37 Discharge Date/Time: 03/27/23 11:37
== END 2023-03-27 11:37 | disposition home or self-care (01) ==
PROVIDERS: Emergency Provider Emergency Medicine; PCP Internal Medicine
DX: S00.511A Abrasion of lip, initial encounter (principal); X58.XXXA Exposure to other specified factors, initial encounter; E78.00 Pure hypercholesterolemia, unspecified; Z86.73 Personal history of transient ischemic attack (TIA), and cerebral infarction without residual deficits; Z79.01 Long term (current) use of anticoagulants; Z79.82 Long term (current) use of aspirin; Z79.02 Long term (current) use of antithrombotics/antiplatelets; Z79.899 Other long term (current) drug therapy; Y93.9 Activity, unspecified; Y92.039 Unspecified place in apartment as the place of occurrence of the external cause; Y99.9 Unspecified external cause status
CPT/HCPCS: 36415; 80053; 85025; 85610; 85730; 99282; 99283

== ENCOUNTER 2023-08-07 07:37 | Outpatient (REF) | payer MEDICARE, OTHER, SELFPAY ==
[2023-08-07 07:48] LABS: MANUAL DIFF FLAG NO
[2023-08-07 08:02] LABS: Basophils Percent Auto 0.5 % (0-2); Eosinophils Absolute Auto 0.5 X10*3/uL (0.0-0.4); Eosinophils Percent Auto 6.4 % (0-4); Hematocrit 45.9 % (42.0-52.0); Hemoglobin 14.9 g/dl (14.0-18.0); Imm Gran Abs Auto 0.02 X10*3/uL (0.00-0.03); Imm Gran Pct Auto 0.3 % (0.0-0.4); Lymphocytes Absolute Auto 2.8 X10*3/uL (1.2-4.9); Lymphocytes Percent Auto 37.2 % (20-40); Mean Corpuscular HGB Conc 32.5 g/dl (31.0-36.0); Mean Corpuscular Hemoglobin 30.3 pg (27.0-33.0); Mean Corpuscular Volume 93.5 fL (80.0-98.0); Mean Platelet Volume 9.5 fL (9.4-12.4); Monocytes Absolute Auto 0.5 X10*3/uL (0.1-1.2); Monocytes Percent Auto 6.6 % (2-11); Neutrophils Absolute Auto 3.7 x10*3/uL (2.0-8.3); Platelet Count 236 X10*3/uL (160-400); Red Blood Count 4.91 X10*6/uL (4.60-5.80); Red Cell Distribution Width 13.4 % (11.0-16.0); White Blood Count 7.6 X10*3/uL (4.8-10.8)
[2023-08-07 08:33] LABS: Alanine Aminotransferase 33 U/L (0-40); Albumin Level 4.5 g/dL (3.5-5.0); Alkaline Phosphatase 70 U/L (39-117); Anion Gap 11 (12-20); Aspartate Amino Transferase 41 U/L (5-37); Bilirubin Total 0.7 mg/dL (0.0-1.0); Blood Urea Nitrogen 19 mg/dL (9-16); Calcium 9.5 mg/dL (8.4-10.2); Carbon Dioxide 29 mmol/L (22-29); Chloride 106 mmol/L (96-108); Cholesterol 136 mg/dL (<200); Estimated Glomerular Filt Rate > 60; Glucose Random 104 mg/dL (60-115); HDL Cholesterol 62 mg/dL (>40); LDL Cholesterol Calculated 65 mg/dL (<100); Potassium 4.7 mmol/L (3.3-5.1); Sodium 141 mmol/L (135-145); Total Protein 7.1 g/dL (6.5-8.0); Triglycerides 45 mg/dL (<150)
[2023-08-07 08:47] LABS: Prostate Specific Antigen 1.42 ng/mL (<0.05-4.0)
== END 2023-08-07 07:38 | disposition home or self-care (01) ==
LOC: HO.LAB 07:37
PROVIDERS: Absent Provider Internal Medicine; PCP Internal Medicine; Visit Provider Urology
DX: E78.00 Pure hypercholesterolemia, unspecified (principal); R97.20 Elevated prostate specific antigen [PSA]; I42.9 Cardiomyopathy, unspecified; Z12.5 Encounter for screening for malignant neoplasm of prostate
CPT/HCPCS: 36415; 80053; 80061; 84153; 85025; 85610

== ENCOUNTER 2023-08-24 15:12 | Outpatient (AMB) | payer MEDICARE, OTHER, SELFPAY ==
--- NOTE | 2023-08-24 15:26 | MHC.OFFVIS ---
Intake Intake Visit Reasons: 6M PSA(set) Allergies No Known Allergies Allergy (Verified 01/26/23 13:53) Medication List - Last Reconciled 08/24/23 by Rajeev Sullivan MD apixaban 5 mg PO BID aspirin (Adult Aspirin Regimen) 81 mg PO DAILY atorvastatin 80 mg PO DAILY ezetimibe (Zetia) 10 mg PO DAILY 90 days finasteride 5 mg PO DAILY 90 days lisinopril 10 mg PO DAILY metoprolol succinate ER 25 mg PO DAILY mometasone 50 mcg/actuation 2 sprays intranasal BID multivitamin,tx-minerals (Multi-Vitamin HP/Minerals capsule) 1 cap PO DAILY HPI HPI Comments History of Present Illness Details Chito is a very pleasant male. He is a patient of Dr. Díaz. He is seen for the following urologic conditions - elevated PSA Telemedicine Evaluation 15 min Consultation [employer] PSA continued to fall Has recovered from slight stroke he had in January Not allowed to ski this year. 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 Elevated PSA Followed for many years PSA - 10/23 4.6 free PSA 20, 08/23 3.8, 01/23 4.2 27%, 07/25 2.1, 01/24 2.4 on finasteride, 08/26 1.4 Variable PSA readings over time Has noticed decrease in urinary frequency and improved stream since starting finasteride [facility] Medical History (Updated 08/10/23 @ 17:03 by Douglas Díaz MD) COVID-19 vaccine series completed Skin cancer Annual physical exam Patent foramen ovale Mercury poisoning Cardiomyopathy Hypercholesterolemia PSA elevation Impaired fasting glucose Coronary artery disease Thrombophlebitis Surgical History H/O colonoscopy History of surgery Family History Father CHF (congestive heart failure) CAD (coronary artery disease) CVD (cardiovascular disease) Skin cancer Mother CVD (cardiovascular disease) Acute CVA (cerebrovascular accident) Paternal Grandfather Acute CVA (cerebrovascular accident) Maternal Grandfather CAD (coronary artery disease) Housing: House Alcohol intake: current Patient Tobacco Use Status: Never used Tobacco e-Cigarette/Vaping Use: Never Used Second Hand Smoke Exposure: No Current occupational status: retired Cognitive needs: No Hearing needs: No Vision needs: Yes Review of Systems Const All systems reviewed & are unremarkable except as noted in HPI and below Reports no additional complaints Resp Reports no additional complaints GI Reports no additional complaints Reports as per HPI Musc Reports no additional complaints Physical Exam Telemedicine evaluation Appropriate responses Regular breathing rate and rhythm HEENT Head: Yes normal to inspection Ears: hearing grossly normal bilaterally Eyes General: appearance normal, both eyes and all related structures Neck Neck: Yes normal visual inspection Chest Chest palpation & inspection: normal inspection of the chest Resp Effort & Inspection: normal respiratory effort and able to speak in complete sentences Assessment & Plan Assessment & Plan (1) PSA elevation: Comment: Dr. Sullivan Code(s): R97.20 - Elevated prostate specific antigen [PSA] (2) BPH w urinary obs/LUTS: Code(s): N40.1 - Benign prostatic hyperplasia with lower urinary tract symptoms; N13.8 - Other obstructive and reflux uropathy Plan Twelve month follow-up Orders: Orders Prostate Specific Antigen 364 Days N13.8 - Other obstructive and reflux uropathy, N40.1 - Benign prostatic hyperplasia with lower urinary tract symptoms Medications: Refilled finasteride 5 mg PO DAILY 90 days 90 tabs 3RF N13.8 - Other obstructive and reflux uropathy, N40.1 - Benign prostatic hyperplasia with lower urinary tract symptoms, R97.20 - Elevated prostate specific antigen [PSA] Patient Instructions: Imaging studies, laboratory and physical exam results were discussed and reviewed in detail. No major barriers to patient understanding were identified. An opportunity to ask questions regarding the treatment plan was provided. All questions were answered. The patient expressed understanding and agreement with the above treatment plan. The patient is aware they should contact our office by phone for worsening of their current condition or the appearance of new urologic symptoms. Compliance is encouraged with any medications and followup testing that is ordered. It is a privilege to participate in the urologic care of your patient. If you have any questions or concerns regarding treatment for the above conditions, or other urologic issues, please do not hesitate to contact me. The office telephone contact is [phone]. This note is constructed using voice recognition software. While every effort has been made to ensure accuracy energy systems laboratory director errors may have been included. Yours sincerely, Dr Rajeev Sullivan MD, [facility]AN[facility] - Urology Providers of Expert, Compassionate Care for the Genitourinary System Telehealth Telehealth Location of provider rendering services: practice address Location of patient: address on file Patient Identification confirmed using: Name, : Yes Telehealth method: video Patient verbally consented to treatment: Yes Patient verbally consented to billing insurance company: Yes Patient informed of any privacy concerns related to visit: Yes Coding Level of Care Code Tele Est Pt Level 3 (23990) Diagnoses PSA elevation R97.20 BPH w urinary obs/LUTS N40.1; N13.8
== END 2023-08-24 15:42 | disposition home or self-care (01) ==
LOC: HO.HUSH 15:12
PROVIDERS: PCP Internal Medicine; Visit Provider Urology
DX: R97.20 Elevated prostate specific antigen [PSA] (principal); N40.1 Benign prostatic hyperplasia with lower urinary tract symptoms; N13.8 Other obstructive and reflux uropathy
CPT/HCPCS: 99213

== ENCOUNTER → 2023-08-24 15:12 | Outpatient (BNVA) | payer MEDICARE, OTHER, SELFPAY | PROVIDERS: PCP Internal Medicine; Visit Provider Urology ==

== ENCOUNTER 2023-09-13 08:54 | Outpatient (AMB) | payer MEDICARE, OTHER, SELFPAY ==
[2023-09-13 08:59] VITALS: BP 116/68; PULSE 61; O2SAT 100; BMI 25.0
--- NOTE | 2023-09-13 08:59 | AM.OFFVISMDC ---
Intake Vital Signs 09/13/23 08:59 Height 5 ft 6 in Weight 155 lb 0.8 oz BMI 25.0 BP 116/68 Blood Pressure Location Rt brachial Position Sitting Pulse 61 Pulse Source Pulse Oximeter Pulse Oximetry (%) 100 Oxygen Delivery Method Room Air Intake Visit Reasons: AWV Intake Note: Patient is here for an Annual Wellness Visit. Regional Account Manager Required: No Allergies No Known Allergies Allergy (Verified 09/13/23 09:19) Medication List - Last Reconciled 09/13/23 by Douglas Díaz MD apixaban 5 mg PO BID aspirin (Adult Aspirin Regimen) 81 mg PO DAILY atorvastatin 80 mg PO DAILY ezetimibe (Zetia) 10 mg PO DAILY 90 days finasteride 5 mg PO DAILY 90 days lisinopril 10 mg PO DAILY metoprolol succinate ER 25 mg PO DAILY mometasone 50 mcg/actuation 2 sprays intranasal BID multivitamin,tx-minerals (Multi-Vitamin HP/Minerals capsule) 1 cap PO DAILY HPI AWV HPI Details 72-year-old male with a history of CAD, hypercholesterolemia BPH last seen in September 2022. Patient's colonoscopy is up-to-date March 2022. 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 Presented emergency room with brief episode of garbled speech woke up having difficulty producing words did get back to baseline but on follow-up had recurrent and persistent word-finding difficulty. Patient did follow-up with nurse practitioner in January stenotic lesion referral to speech therapy sent. Patient was also following up with urology for the elevated PSA this is being followed from 2019.. Patient has seen Neurology February 2023 left middle cerebral artery bifurcation occlusion MRI confirmed infarct with left middle cerebral artery occlusion presently on apixaban has been on speech therapy improvements 3 months long-term no at, aspirin statins. Patient had an ER visit in March for an abrasion. Patient sent in an cardiac MRI in August results showing left ventricular size normal ejection fraction 54% global left ventricular function low normal similar appearance of prior medium to large size infarct involving mid to apical anterior and lateral aguilar extending through the apex. Fatty metaplasia of the infarcted segments with an aneurysmal left ventricular apex. Overall consistent with prior infarct and unchanged from cardiac MRI February 2023. Total scar burden of 27% right ventricle is normal left atrial size normal. Patient also had an echocardiogram with overall findings consistent with prior infarct in the LAD territory and unchanged February 2023. noted still has thinking of wrong speech but is doing good though and for the handwriting not bad- [facility], [facility] Medical History (Updated 09/13/23 @ 19:22 by Douglas Díaz MD) COVID-19 vaccine series completed Skin cancer Annual physical exam Patent foramen ovale Mercury poisoning Cardiomyopathy Hypercholesterolemia PSA elevation Impaired fasting glucose Coronary artery disease Thrombophlebitis Surgical History H/O colonoscopy History of surgery Family History Father CHF (congestive heart failure) CAD (coronary artery disease) CVD (cardiovascular disease) Skin cancer Mother CVD (cardiovascular disease) Acute CVA (cerebrovascular accident) Paternal Grandfather Acute CVA (cerebrovascular accident) Maternal Grandfather CAD (coronary artery disease) Social History (Updated 09/13/23 @ 09:24 by Douglas Díaz MD) Housing: House Alcohol intake: current Comment: once a day 1 glass Patient Tobacco Use Status: Never used Tobacco e-Cigarette/Vaping Use: Never Used Second Hand Smoke Exposure: No Current occupational status: retired Cognitive needs: No Hearing needs: No Vision needs: Yes Questionnaire Medicare Wellness Checkup [age] What gender do you identify with?: male During the past 4 weeks, how much have you been bothered by emotional problems such as feeling anxious, depressed, irritable, sad or downhearted, and blue?: not at all During the past 4 weeks, has your physical & emotional health limited your social activities with family, friends, neighbors, or groups?: not at all During the past 4 weeks, how much bodily pain have you generally had?: no pain During the past 4 weeks, was someone available to help you if you needed & wanted help?: yes, as much as I wanted During the past 4 weeks, what was the hardest physical activity you could do for at least 2 minutes?: moderate Can you get to places out of walking distance without help? (For eg., can you travel alone on buses, taxis or drive your car?): Yes Can you go shopping for groceries or clothes without someone's help?: Yes Can you prepare your own meals?: Yes Can you do your housework without help?: Yes Because of any health problems, do you need the help of another person with your personal care needs such as eating, bathing, dressing or getting around the house?: No Can you handle your own money without help?: Yes During the past 4 weeks, how would you rate your health in general?: very good During the past 4 weeks how have things been going for you?: very well; could hardly better Are you having difficulties driving your car?: no Do you always fasten your seat belt when you are in a car?: yes, usually During past 4 weeks, have you been bothered by the following: never: Falling or dizzy when standing up, Sexual problems?, Trouble eating well?, Teeth or denture problems?, Problems using the telephone? and Tiredness or fatigue? Have you fallen 2 or more times in the past year?: No Are you afraid of falling?: Yes Are you a smoker?: no During the past 4 weeks, how many drinks of wine, beer, or other alcoholic beverages did you have?: 6-9 drinks per week Do you exercise for about 20 minutes 3 or more times a week?: yes, all the time Have you been given information to help with the following?: no: Hazards in your house that might hurt you? and no: Keeping track of your medications? How often do you have trouble taking medicines the way you have been told to take them?: I always take medicine as prescribed How confident are you that you can control & manage most of your health problems?: very confident What is your race?: White PHQ-9 Over the last 2 weeks, how often have you been bothered by any of the following problems? 1. Little interest or pleasure in doing things: not at all 2. Feeling down, depressed, or hopeless: not at all 3. Trouble falling or staying asleep, or sleeping too much: not at all 4. Feeling tired or having little energy: not at all 5. Poor appetite or overeating: not at all 6. Feeling bad about yourself - or that you are a failure or have let yourself or your family down: not at all 7. Trouble concentrating on things, such as reading the newspaper or watching television: not at all 8. Moving or speaking so slowly that other people could have noticed. Or the opposite - being so fidgety or restless that you have been moving around a lot more than usual: not at all 9. Thoughts that you would be better off or of hurting yourself in some way: not at all Total score: 0 Depression Screening Interpretation: Negative Depression Screening Done: Yes [id number] - PHQ-9 Billing: Yes Source: Developed by Drs. Cyrus Griggs, Julita Harley, Adriel Sargent and colleagues, with an educational miriam from [employer] Review of Systems Const Denies poor appetite and Denies weakness Eyes Denies no additional complaints ENT Reports Normal hearing present, Denies dizziness, Denies nasal congestion, Denies tinnitus and Denies sore throat Card Denies chest pain, Denies syncope, Denies rapid heart rate and Denies dyspnea Resp Denies cough and Denies dyspnea GI Denies change in stool character, Reports constipation, Denies diarrhea, Denies nausea and Denies vomiting Denies dysuria and Denies urinary frequency Neuro Reports Normal hearing present, Denies confusion, Denies dizziness, Denies syncope and Denies weakness Psych Denies confusion Physical Exam Vital Signs: Last Vital Signs Pulse 61 09/13/23 08:59 BP 116/68 09/13/23 08:59 Pulse Ox 100 09/13/23 08:59 Oxygen Delivery Method Room Air 09/13/23 08:59 BMI result Body Mass Index 25.0 Const General: No confusion Orientation/consciousness: No confusion HEENT Other: impacted cerumen bilateral Head: Yes normocephalic Ears: external ears normal Face and sinus: Yes normal facial exam Mouth: moist mucous membranes Throat: Yes tonsils normal Eyes Conjunctivae: conjunctivae normal Pupils: Equal, round and reactive pupils present and Pupil accommodation reflex normal Direct Ophthalmoscopy: normal light reflex Neck Neck: No lymphadenopathy Thyroid: Thyroid normal Chest Chest palpation & inspection: normal inspection of the chest Resp Effort & Inspection: normal respiratory effort and no audible wheezes Auscultation: clear to auscultation bilaterally, no crackles, no wheezes and lung sounds not diminished Cardio Rate: regular rate Rhythm: regular rhythm Peripheral pulses: radial pulses present and dorsalis pedis present GI Other: rectal exam negative prostate no mass noted Palpation (GI): no masses Auscultation: normal bowel sounds and normoactive bowel sounds Rectal Exam - Male: Yes deferred Male General Exam: Yes normal external exam Skin General skin exam: no rashes or lesions noted Rashes: no rashes Neuro General: No confusion Cranial nerves: Yes Equal, round and reactive pupils present and Yes Normal hearing present Cognition (Neuro): normal cognition Gait exam (Neuro): Normal gait present Motor exam (neuro): 5/5 motor strength present throughout Deep tendon reflexes (DTR's): Right brachioradialis reflex intensity grade: 2+, Left brachioradialis reflex intensity grade: 2+, Right patellar reflex intensity grade: 2+ and Left patellar reflex intensity grade: 2+ Extrem General: No edema Office Procedures Cerumen Removal From which ear canal was the cerumen removed: bilateral Removal: irrigation, otoscope w/curette, cerumen loop/spoon and other Notes: patient tolerated procedure well, no complications and ear canal clear [id number] Irrigation/Lavage Assessment & Plan Assessment & Plan (1) Medicare annual wellness visit, subsequent: Code(s): Z00.00 - Encounter for general adult medical examination without abnormal findings Plan: Examination done (2) Coronary artery disease: Comment: Embolus anterior [place] January 2007 Dr. Malone and [facility] Code(s): I25.10 - Atherosclerotic heart disease of [place] coronary artery without angina pectoris Qualifiers: Associated angina: without angina Coronary Disease-Associated Artery/Lesion type: [place] artery [place] vs. transplanted heart: [place] heart Qualified Code(s): I25.10 - Atherosclerotic heart disease of [place] coronary artery without angina pectoris Plan: Control the cholesterol, weight, blood pressure. Continue with aspirin 81 mg once a day. Continue with metoprolol (3) Hypercholesterolemia: Code(s): E78.00 - Pure hypercholesterolemia, unspecified Plan: Avoid fried foods, chicken skin, eggs, butter margarine, pastries and meat. Be it pork or beef they have a lot of cholesterol LDL goal of less than 70 presently on atorvastatin 80 mg and Zetia 10 mg once a day (4) Cardiomyopathy: Comment: Secondary to coronary embolus and myocardial infarction July 2023 cardiac MRICardiac MRI showing left ventricular size normal ejection fraction 54% global left ventricular function is low normal. Consistent with prior infarct in the LAD territory unchanged from the cardiac MRI February 2023 Code(s): I42.9 - Cardiomyopathy, unspecified Qualifiers: Cardiomyopathy type: unspecified Qualified Code(s): I42.9 - Cardiomyopathy, unspecified Plan: Continue to follow-up with cardiology (5) CVA (cerebral vascular accident): Comment: January 2023Left acute arterial ischemic stroke MCA middle cerebral artery aphasia, oropharyngeal dysphagia and dysarthria Code(s): I63.9 - Cerebral infarction, unspecified Qualifiers: CVA mechanism: occlusion Precerebral and cerebral artery: middle cerebral artery Laterality of affected vessel: left Qualified Code(s): I63.512 - Cerebral infarction due to unspecified occlusion or stenosis of left middle cerebral artery Plan: Continuing with aggressive cholesterol lowering, patient presently on DOAC (6) Impaired fasting glucose: Code(s): R73.01 - Impaired fasting glucose Plan: Decrease the amount of carbohydrate intake, pasta, bread, rice and potatoes are all sugar and that is aside from all the sweet stuff, remember that fruits are good but they are Sweet also. (7) BPH w urinary obs/LUTS: Code(s): N40.1 - Benign prostatic hyperplasia with lower urinary tract symptoms; N13.8 - Other obstructive and reflux uropathy Plan: Patient continue to follow-up with Urology on finasteride (8) LFT elevation: Code(s): R79.89 - Other specified abnormal findings of blood chemistry Plan: Will follow-up the results as well as to an ultrasound and lab work and appetite is profile (9) Impacted cerumen of both ears: Code(s): H61.23 - Impacted cerumen, bilateral Plan: irrigation and scoop done TM [facility] Quality Reporting (2019) Depression/Bipolar (159/160/161/177) PHQ-9: Total score: 0 Coding Level of Care Code Medicare Subsequent (G0439) Diagnoses Medicare annual wellness visit, subsequent Z00.00 Coronary artery disease involving [place] coronary artery of [place] heart without angina pectoris I25.10 Associated angina: without angina Coronary Disease-Associated Artery/Lesion type: [place] artery [place] vs. transplanted heart: [place] heart Hypercholesterolemia E78.00 Cardiomyopathy, unspecified type I42.9 Cardiomyopathy type: unspecified Cerebrovascular accident (CVA) due to occlusion of left middle cerebral artery I63.512 CVA mechanism: occlusion Precerebral and cerebral artery: middle cerebral artery Laterality of affected vessel: left Impaired fasting glucose R73.01 BPH w urinary obs/LUTS N40.1; N13.8 LFT elevation R79.89 Impacted cerumen of both ears H61.23 CPT Codes Office Procedure - CPT: 76129-Tvx Irrigation/Lavage ([id number])
== END 2023-09-13 10:02 | disposition home or self-care (01) ==
PROVIDERS: Visit Provider Internal Medicine
DX: Z00.00 Encounter for general adult medical examination without abnormal findings (principal); I42.9 Cardiomyopathy, unspecified; I63.512 Cerebral infarction due to unspecified occlusion or stenosis of left middle cerebral artery; H61.23 Impacted cerumen, bilateral; I25.10 Atherosclerotic heart disease of native coronary artery without angina pectoris; E78.00 Pure hypercholesterolemia, unspecified; R73.01 Impaired fasting glucose; N40.1 Benign prostatic hyperplasia with lower urinary tract symptoms; N13.8 Other obstructive and reflux uropathy; R79.89 Other specified abnormal findings of blood chemistry
CPT/HCPCS: 69210; G0439

== ENCOUNTER 2023-11-11 07:51 | Outpatient (REF) | payer MEDICARE, OTHER, SELFPAY ==
--- NOTE | ~2023-11-11 | US_ITS ---
EXAMINATION: US ABDOMEN COMPLETE CLINICAL INFORMATION: Other specified abnormal findings of blood chemistry. COMPARISON: None available. TECHNIQUE: Real-time imaging of the abdominal viscera. FINDINGS: PANCREAS: Limited. The visualized pancreatic head and body are normal in appearance. The remainder of the pancreas is obscured from visualization by the overlying bowel gas. 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 INFERIOR VENA CAVA: Visualized portions are normal. LIVER: The liver is normal in size. The liver contour is normal. Parenchymal echogenicity is normal. There is no intrahepatic biliary duct dilatation seen. There are multiple simple cysts, the largest within the right hepatic lobe measuring 1.0 cm and within the left hepatic lobe 2.7 cm and 1.1 cm. As well, within the left hepatic lobe, a 0.9 x 0.8 cm mildly complex cyst is seen, with fine septation. This shows no mural nodularity associated color Doppler flow. GALLBLADDER: Normal. The gallbladder is physiologically distended without evidence of stones, sludge, polyps, wall thickening or pericholecystic fluid. COMMON BILE DUCT: Normal in caliber measuring 0.4 cm in diameter. RIGHT KIDNEY: No hydronephrosis. No renal calculi or focal parenchymal lesions. The kidney measures 10.6 cm in maximum dimension. At the interpolar aspect, there is a focus of cortical scarring with associated 5 mm calcification. LEFT KIDNEY: No hydronephrosis. The kidney measures 10.3 cm in maximum dimension. At the lower pole, there are echogenic foci which do not meet formal ultrasound criteria for calculi. At the upper pole, 1.0 cm and 2.0 cm benign, simple cysts are seen. At the interpolar aspect, a 1.3 cm benign, simple cyst is seen. These require no imaging follow-up. SPLEEN: Normal. The spleen measures 9.8 cm in maximum dimension. FREE FLUID: None. US/US abdomen complete IMPRESSION: 1. There are multiple hepatic cysts, one in the left lobe measuring 0.9 cm, with fine septation. As a precaution, consider follow-up ultrasound imaging in 6 months to ensure stability. 2. 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 3. At the interpolar aspect of the right kidney, there is focal cortical scarring with associated 5 mm cortical calcification. 4. Technically limited ultrasound examination of the pancreatic tail.
[2023-11-11 09:14] LABS: Prothrombin Time 12.7 SEC (11.1-13.3)
[2023-11-11 09:37] LABS: Alanine Aminotransferase 30 U/L (0-40); Albumin Level 4.2 g/dL (3.5-5.0); Alkaline Phosphatase 67 U/L (39-117); Anion Gap 11 (12-20); Aspartate Amino Transferase 35 U/L (5-37); Bilirubin Total 0.6 mg/dL (0.0-1.0); Blood Urea Nitrogen 21 mg/dL (9-16); Calcium 9.2 mg/dL (8.4-10.2); Carbon Dioxide 30 mmol/L (22-29); Chloride 104 mmol/L (96-108); Estimated Glomerular Filt Rate > 60; Glucose Random 117 mg/dL (60-115); Potassium 4.7 mmol/L (3.3-5.1); Sodium 140 mmol/L (135-145); Total Protein 6.6 g/dL (6.5-8.0)
[2023-11-11 10:10] LABS: HBc Num1 0.04 S/CO (0.00-0.79); HBsAGNum1 0.36 S/CO (0.00-0.99); Hepatitis B Core Antibody Nonreactive (Nonreactive); Hepatitis B Surface Antigen Negative (Negative); ~HepC Num1 0.11 S/CO (0.00-0.79); ~Hepatitis B Surface Antibody REACTIVE (Nonreactive); ~Hepatitis C Antibody Nonreactive (Nonreactive)
== END 2023-11-11 07:52 | disposition home or self-care (01) ==
LOC: HO.US 07:51
PROVIDERS: PCP Internal Medicine; Visit Provider Internal Medicine
DX: R79.89 Other specified abnormal findings of blood chemistry (principal); I42.9 Cardiomyopathy, unspecified
CPT/HCPCS: 36415; 76700; 80053; 85610; 86704; 86706; 86803; 87340

== ENCOUNTER 2024-04-04 09:28 | Outpatient (AMB) | payer MEDICARE, OTHER, SELFPAY ==
--- NOTE | 2024-04-04 09:34 | A.OFFPC_ITS ---
Vital Signs 04/04/24 09:35 Height 5 ft 6 in Weight 158 lb BMI 25.5 BP 120/76 Blood Pressure Location Lt brachial Position Sitting Pulse 73 Pulse Source Pulse Oximeter Pulse Oximetry (%) 97 Oxygen Delivery Method Room Air Intake Visit Reasons: Follow up per Dr. Díaz. Allergies No Known Allergies Allergy (Verified 04/04/24 09:36) Medication List - Last Reconciled 04/04/24 by Douglas Díaz MD apixaban 5 mg PO BID aspirin (Adult Aspirin Regimen) 81 mg PO DAILY atorvastatin 80 mg PO DAILY ezetimibe (Zetia) 10 mg PO DAILY 90 days finasteride 5 mg PO DAILY 90 days lisinopril 10 mg PO DAILY metoprolol succinate ER 25 mg PO DAILY mometasone 50 mcg/actuation 2 sprays intranasal BID multivitamin,tx-minerals (Multi-Vitamin HP/Minerals capsule) 1 cap PO DAILY Tobacco use date assessed: 04/04/24 Fall risk assessment: No Falls in past year Last assessed Fall Risk: 04/04/24 Dental Screening Dental Screen Date: 04/04/24 Did you have a dental visit in the last 12 months?: Yes Did you have a dental problem in the last 6 months where you did not have access to dental care?: No Was dental information given to patient?: Patient has dentist HPI Follow up per Dr. Díaz. HPI Details 73-year-old male with coronary artery di sease hypercholesterolemia cardiomyopathy history of CVA impaired glucose tolerance BPH coming in for follow-up. 09/22/2023 last seen. Patient's colonoscopy is up-to-date . 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 suffered a stroke January 07. Could not find words CT angiogram showing no high-grade stenosis bilateral carotid arteries showed mild calcification but patent. With the continuing word-finding difficulty CT scan done again concern about left MCA bifurcation occlusion sent for thrombectomy. 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 Noted an ultrasound done in November showing multiple hepatic cyst advised to follow-up ultrasound in 6 months. R hand action for CVA - 95 % and speech is better, speech 95 % Skin R neck shoulder. had rectal bleeding but mild - 04/2022 had internal and externa hemorrhoids [facility] Medical History (Updated 11/12/23 @ 18:44 by Douglas Díaz MD) COVID-19 vaccine series completed Skin cancer Annual physical exam Patent foramen ovale Mercury poisoning Cardiomyopathy Hypercholesterolemia PSA elevation Impaired fasting glucose Coronary artery disease Thrombophlebitis Surgical History H/O colonoscopy History of surgery Family History (Updated 04/04/24 @ 09:41 by Yumiko Good [facility]) Father CHF (congestive heart failure) CAD (coronary artery disease) CVD (cardiovascular disease) Skin cancer Mother CVD (cardiovascular disease) Acute CVA (cerebrovascular accident) Paternal Grandfather Acute CVA (cerebrovascular accident) Maternal Grandfather CAD (coronary artery disease) Social History (Updated 09/13/23 @ 09:24 by Douglas Díaz MD) Housing: House Alcohol intake: current Comment: once a day 1 glass Patient Tobacco Use Status: Never used Tobacco e-Cigarette/Vaping Use: Never Used Second Hand Smoke Exposure: No Current occupational status: retired Cognitive needs: No Hearing needs: No Vision needs: Yes Questionnaire PHQ-9 Over the last 2 weeks, how often have you been bothered by any of the following problems? 1. Little interest or pleasure in doing things: not at all 2. Feeling down, depressed, or hopeless: not at all 3. Trouble falling or staying asleep, or sleeping too much: not at all 4. Feeling tired or having little energy: not at all 5. Poor appetite or overeating: not at all 6. Feeling bad about yourself - or that you are a failure or have let yourself or your family down: not at all 7. Trouble concentrating on things, such as reading the newspaper or watching television: not at all 8. Moving or speaking so slowly that other people could have noticed. Or the opposite - being so fidgety or restless that you have been moving around a lot more than usual: not at all 9. Thoughts that you would be better off or of hurting yourself in some way: not at all Total score: 0 Depression Screening Interpretation: Negative Depression Screening Done: Yes 81717 - PHQ-9 Billing: Yes Source: Developed by Drs. Cyrus Griggs, Julita Harley, Adriel Sargent and colleagues, with an educational miriam from [employer]. Thrive Questionnaire Date Thrive assessed: 04/04/24 I am a: Patient What is your living situation today?: I have a steady place to live Within the past 12 months, did the food you bought not last and you didn't have the money to get more?: Never true Within the past 12 months, did you worry whether your food would run out before you got money to buy more?: Never true Do you have trouble paying for medicines?: No Do you have trouble getting transportation to medical appointments?: No Do you have trouble paying your heating and electricity bill?: No Do you have trouble taking care of your child, family member or friend?: No Do you have trouble with day-to-day activities such as bathing, preparing meals, shopping, managing finances, etc.?: No Are you currently unemployed and looking for a job?: No Are you interested in more education?: No Currently or been in a relationship where the following occur: No concerns reported THRIVE Score: 0 AUDIT C Alcohol Use Questionnaire (AUDIT-C) 1. How often do you have a drink containing alcohol?: 4 or more times a week 2. How many drinks containing alcohol do you have on a typical day when you are drinking?: 1 or 2 3. How often do you have six or more drinks on one occasion?: Never Total Score: 4 DEANNE-7 AMB Questionnaire DEANNE-7 Date DEANNE - 7 assessed: 04/04/24 Feeling nervous, anxious, or on edge: 0 = Not at all Not being able to stop or control worryin = Not at all Worrying too much about different things: 0 = Not at all Trouble relaxin = Not at all Being so restless that it is hard to sit still: 0 = Not at all Becoming easily annoyed or irritable: 0 = Not at all Feeling afraid as if something awful might happen: 0 = Not at all Total DEANNE-7 score (0-4 normal; 5-9 mild; 10-14 moderate; 15-21 severe): 0 Source: Developed by Drs. Cyrus Griggs, Julita Harley, Adriel Sargent and colleagues, with an educational miriam from [employer]. Physical exam (Primary Care) Vital Signs: Last Vital Signs Pulse 73 04/04/24 09:35 BP 120/76 04/04/24 09:35 Pulse Ox 97 04/04/24 09:35 Oxygen Delivery Method Room Air 04/04/24 09:35 BMI result Body Mass Index 25.5 Tobacco/Smoking Status: Tobacco use Status Tobacco use date assessed 04/04/24 04/04/24 09:37 Patient Tobacco Use Status Never used Tobacco 04/04/24 09:37 e-Cigarette/Vaping Use Never Used 04/04/24 09:37 PHQ-9: PHQ-9 Score PHQ-9: Total score 0 04/04/24 09:48 Depression Screening Interpretation: Negative Thrive Assessment: Date of Thrive Assessment Date Thrive assessed 04/04/24 04/04/24 09:48 Currently or been in a relationship where the following occur: No concerns reported Const General: alert; No acute distress Eyes Conjunctivae: conjunctivae normal Resp Auscultation: clear to auscultation bilaterally Cardio Rate: regular rate Rhythm: regular rhythm GI Inspection: Yes normal to inspection Extrem General: Yes normal to inspection and No edema Assessment and Plan Assessment & Plan (1) Hepatic cyst: Comment: November 2023 advise repeat ultrasound in 6 months Code(s): K76.89 - Other specified diseases of liver Plan: Patient was advised to have a follow-up ultrasound (2) CVA (cerebral vascular accident): Comment: January 2023Left acute arterial ischemic stroke MCA middle cerebral artery aphasia, oropharyngeal dysphagia and dysarthria Code(s): I63.9 - Cerebral infarction, unspecified Qualifiers: CVA mechanism: occlusion Precerebral and cerebral artery: middle cerebral artery Laterality of affected vessel: left Qualified Code(s): I63.512 - Cerebral infarction due to unspecified occlusion or stenosis of left middle cerebral artery Plan: Patient presently on anticoagulation for cardiac micro thrombi advised another cardiac MRI in the fall (3) Coronary artery disease: Comment: Embolus anterior [place] January 2007 Dr. Doll [facility] Code(s): I25.10 - Atherosclerotic heart disease of [place] coronary artery without angina pectoris Qualifiers: Coronary Disease-Associated Artery/Lesion type: [place] artery [place] vs. transplanted heart: [place] heart Associated angina: without angina Qualified Code(s): I25.10 - Atherosclerotic heart disease of [place] coronary artery without angina pectoris Plan: Control the cholesterol, weight, blood pressure continue with anticoagulation and aspirin (4) Hypercholesterolemia: Code(s): E78.00 - Pure hypercholesterolemia, unspecified Plan: Avoid fried foods, chicken skin, eggs, butter margarine, pastries and meat. Be it pork or beef they have a lot of cholesterol on Zetia and atorvastatin LDL goal of less than 7 (5) Impaired fasting glucose: Code(s): R73.01 - Impaired fasting glucose Plan: Decrease the amount of carbohydrate intake, pasta, bread, rice and potatoes are all sugar and that is aside from all the sweet stuff, remember that fruits are good but they are Sweet also. Orders: Orders Complete Blood Count Auto Diff Today I63.512 - Cerebral infarction due to unspecified occlusion or stenosis of left middle cerebral artery Lipid Panel Today E78.00 - Pure hypercholesterolemia, unspecified, I63.512 - Cerebral infarction due to unspecified occlusion or stenosis of left middle cerebral artery Thyroid Stimulating Hormone Today I63.512 - Cerebral infarction due to unspecified occlusion or stenosis of left middle cerebral artery Hemoglobin A1c Today R73.01 - Impaired fasting glucose Comprehensive Met. Panel Today I63.512 - Cerebral infarction due to unspecified occlusion or stenosis of left middle cerebral artery Free T4 (Free Thyroxine) Today R73.01 - Impaired fasting glucose Vitamin B12 and Folate Today R73.01 - Impaired fasting glucose Prostate Specific Antigen Scr Today R97.20 - Elevated prostate specific antigen [PSA] Coding Level of Care Code Est Pt Level 4 (70594) Complex EM visit Add On G2211 Diagnoses Hepatic cyst K76.89 Cerebrovascular accident (CVA) due to occlusion of left middle cerebral artery I63.512 CVA mechanism: occlusion Precerebral and cerebral artery: middle cerebral artery Laterality of affected vessel: left Coronary artery disease involving [place] coronary artery of [place] heart without angina pectoris I25.10 Coronary Disease-Associated Artery/Lesion type: [place] artery [place] vs. transplanted heart: [place] heart Associated angina: without angina Hypercholesterolemia E78.00 Impaired fasting glucose R73.01
[2024-04-04 09:35] VITALS: BP 120/76; PULSE 73; O2SAT 97; BMI 25.5
== END 2024-04-04 10:35 | disposition home or self-care (01) ==
PROVIDERS: PCP Internal Medicine; Visit Provider Internal Medicine
DX: K76.89 Other specified diseases of liver (principal); I63.512 Cerebral infarction due to unspecified occlusion or stenosis of left middle cerebral artery; I25.10 Atherosclerotic heart disease of native coronary artery without angina pectoris; E78.00 Pure hypercholesterolemia, unspecified; R73.01 Impaired fasting glucose
CPT/HCPCS: 99214; G2211

== ENCOUNTER 2024-04-05 07:39 | Outpatient (REF) | payer MEDICARE, OTHER, SELFPAY ==
[2024-04-05 08:00] LABS: MANUAL DIFF FLAG NO
[2024-04-05 08:30] LABS: Basophils Percent Auto 0.6 % (0-2); Eosinophils Absolute Auto 0.4 X10*3/uL (0.0-0.4); Hematocrit 42.1 % (42.0-52.0); Hemoglobin 13.9 g/dl (14.0-18.0); Imm Gran Abs Auto 0.01 X10*3/uL (0.00-0.03); Imm Gran Pct Auto 0.2 % (0.0-0.4); Lymphocytes Absolute Auto 2.4 X10*3/uL (1.2-4.9); Lymphocytes Percent Auto 37.2 % (20-40); Mean Corpuscular Hemoglobin 30.6 pg (27.0-33.0); Mean Corpuscular Volume 92.7 fL (80.0-98.0); Mean Platelet Volume 9.6 fL (9.4-12.4); Monocytes Absolute Auto 0.4 X10*3/uL (0.1-1.2); Monocytes Percent Auto 6.5 % (2-11); Neutrophils Absolute Auto 3.2 x10*3/uL (2.0-8.3); Neutrophils Percent Auto 49.5 % (45-73); Platelet Count 200 X10*3/uL (160-400); Red Blood Count 4.54 X10*6/uL (4.60-5.80); Red Cell Distribution Width 13.2 % (11.0-16.0); White Blood Count 6.5 X10*3/uL (4.8-10.8)
[2024-04-05 08:36] LABS: Estimated Average Glucose 123 mg/dL; Hemoglobin A1C 153.9031 umol/L; Hemoglobin A1c % 5.9 % (<6.0)
[2024-04-05 08:52] LABS: Prothrombin Time 12.1 SEC (11.1-13.3)
[2024-04-05 09:20] LABS: Alanine Aminotransferase 33 U/L (0-40); Albumin Level 4.1 g/dL (3.5-5.0); Alkaline Phosphatase 65 U/L (39-117); Anion Gap 11 (12-20); Aspartate Amino Transferase 36 U/L (5-37); Bilirubin Total 0.6 mg/dL (0.0-1.0); Blood Urea Nitrogen 20 mg/dL (9-16); Calcium 9.2 mg/dL (8.4-10.2); Carbon Dioxide 29 mmol/L (22-29); Chloride 107 mmol/L (96-108); Cholesterol 126 mg/dL (<200); Estimated Glomerular Filt Rate 58; Glucose Random 109 mg/dL (60-115); HDL Cholesterol 55 mg/dL (>40); LDL Cholesterol Calculated 59 mg/dL (<100); Potassium 4.6 mmol/L (3.3-5.1); Sodium 142 mmol/L (135-145); Total Protein 6.4 g/dL (6.5-8.0); Triglycerides 64 mg/dL (<150)
[2024-04-05 09:25] LABS: Free T4 (Free Thyroxine) 0.94 ng/dL (0.71-1.85); Thyroid Stimulating Hormone 4.14 uIU/mL (0.32-4.0)
[2024-04-05 11:26] LABS: Folate 12.5 ng/mL (> or = 4.0); Prostate Specific Antigen Scr 1.29 ng/mL (<0.05-4.0); Vitamin B12 457 pg/mL (200-900)
== END 2024-04-05 07:40 | disposition home or self-care (01) ==
LOC: HO.LAB 07:39
PROVIDERS: PCP Internal Medicine; Visit Provider Internal Medicine
DX: Z12.5 Encounter for screening for malignant neoplasm of prostate (principal); R97.20 Elevated prostate specific antigen [PSA]; E78.00 Pure hypercholesterolemia, unspecified; I63.512 Cerebral infarction due to unspecified occlusion or stenosis of left middle cerebral artery; I42.9 Cardiomyopathy, unspecified; R73.01 Impaired fasting glucose
CPT/HCPCS: 36415; 80053; 80061; 82607; 82746; 83036; 84153; 84439; 84443; 85025; 85610

== ENCOUNTER 2024-05-16 07:59 | Outpatient (REF) | payer MEDICARE, OTHER, SELFPAY ==
--- NOTE | ~2024-05-16 | US_ITS ---
EXAMINATION: US ABDOMEN COMPLETE CLINICAL INFORMATION: Other specified abnormal findings of blood chemistry. COMPARISON: Ultrasound abdomen November 11, 2023. TECHNIQUE: Real-time imaging of the abdominal viscera. Examination is limited secondary to overlying bowel gas. FINDINGS: PANCREAS: Visualized portions of the pancreas are normal in appearance. ABDOMINAL AORTA: There is mild prominence of the mid abdominal aorta measuring 2.6 cm. The visualized proximal and distal abdominal aorta are unremarkable. INFERIOR VENA CAVA: Visualized portions are normal. LIVER: The liver is normal in size. The liver contour is normal. Parenchymal echogenicity is normal. Dominant minimally complex 2.9 cm left hepatic cyst. Multiple other smaller relatively simple-appearing cysts are noted scattered throughout the liver. There is no intrahepatic biliary duct dilatation seen. GALLBLADDER: Normal. The gallbladder is physiologically distended without evidence of stones, sludge, polyps, wall thickening or pericholecystic fluid. COMMON BILE DUCT: Normal in caliber measuring 0.4 cm in diameter. RIGHT KIDNEY: Again demonstrated is an area of suspected mid pole scarring with associated calcification. No hydronephrosis. The kidney measures 10.5 cm in maximum dimension. LEFT KIDNEY: The kidney measures 11.0 cm in maximum dimension. A few small simple appearing cysts are noted. No renal calculi or hydronephrosis of the left kidney. SPLEEN: Normal. The spleen measures 10.5 cm in maximum dimension. FREE FLUID: None. US/US abdomen complete IMPRESSION: 1. Examination limited secondary to overlying bowel gas. 2. Mildly prominent mid abdominal aorta measuring 2.6 cm in maximum dimension. 3. Scattered hepatic cysts are again noted. 4. Small left renal cysts and suspected right renal scarring. Electronically signed by: Matti Murcia MD 06/03/2024 11:01 AM EDT
== END 2024-05-16 08:00 | disposition home or self-care (01) ==
LOC: HO.US 07:59
PROVIDERS: PCP Internal Medicine; Visit Provider Internal Medicine
DX: R79.89 Other specified abnormal findings of blood chemistry (principal); K76.89 Other specified diseases of liver
CPT/HCPCS: 76700

== ENCOUNTER 2024-08-23 14:52 | Outpatient (AMB) | payer MEDICARE, OTHER, SELFPAY ==
--- NOTE | 2024-08-23 15:01 | MHC.OFFVIS ---
Intake Visit Reasons: 1Y PSA(SET) Intake Note: Patient is present for PSA Follow up Urology Med: Finasteride Antibiotic Allergy: None Blood Thinner: Aspirin, Apixaban (Eliquis) LAB: 04/05/2024 -PSA: 1.29 - Hemoglobin A1C- 5.9 Recent Imaging- 05/16/24 - Abdomen Ultraosund-4. Small left renal cysts and suspected right renal scarring. Yarn Spooler Required: No Accompanied by: Self / Same As Patient Allergies No Known Allergies Allergy (Verified 08/23/24 15:01) HPI Comments Details: Chito is a very pleasant male. He is a patient of Dr. Díaz. 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 [place] Elevated PSA Followed for many years PSA - 10/23 4.6 free PSA , 08/23 3.8, 01/23 4.2 27%, 07/25 2.1, 01/24 2.4 on finasteride, 08/26 1.4, 04/26 1.3 Variable PSA readings over time Has noticed decrease in urinary frequency and improved stream since starting finasteride PFSH Medical History COVID-19 vaccine series completed Skin cancer Annual physical exam Patent foramen ovale Mercury poisoning Cardiomyopathy Hypercholesterolemia PSA elevation Impaired fasting glucose Coronary artery disease Thrombophlebitis Surgical History H/O colonoscopy History of surgery Family History Father CHF (congestive heart failure) CAD (coronary artery disease) CVD (cardiovascular disease) Skin cancer Mother CVD (cardiovascular disease) Acute CVA (cerebrovascular accident) Paternal Grandfather Acute CVA (cerebrovascular accident) Maternal Grandfather CAD (coronary artery disease) Social History Housing: House Alcohol intake: current Comment: once a day 1 glass Patient Tobacco Use Status: Never used Tobacco e-Cigarette/Vaping Use: Never Used Second Hand Smoke Exposure: No Current occupational status: retired Cognitive needs: No Hearing needs: No Vision needs: Yes Review of Systems Const Denies chills and Denies fever(s) Card Reports no additional complaints and Denies syncope Resp Denies cough GI Denies abdominal pain and Denies heartburn Reports as per HPI and Denies change in libido Neuro Denies syncope Psych Denies change in libido Endo Denies change in libido Physical Exam Const General: cooperative, healthy appearing, comfortable and no acute distress Orientation/consciousness: patient oriented x3 HEENT Face and sinus: Yes normal facial exam Mouth: moist mucous membranes Neck Neck: Yes normal visual inspection, Yes full ROM and Yes trachea midline Chest Chest palpation & inspection: normal inspection of the chest Resp Effort & Inspection: normal respiratory effort, able to speak in complete sentences and no respiratory distress GI Inspection: Yes normal to inspection Back/Spine/Pelvis Cervical Spine: normal cervical lordosis Thoracic/Lumbar Spine: thoracic and lumbar spine normal to inspection Skin General skin exam: no rashes or lesions noted Neuro General: patient oriented x3, gait normal, tone normal and moves all extremities Extrem General: Yes normal to inspection and Yes capillary refill normal Assessment & Plan Assessment & Plan (1) PSA elevation: Comment: Dr. Sullivan Code(s): R97.20 - Elevated prostate specific antigen [PSA] Category: Medical (2) BPH w urinary obs/LUTS: Code(s): N40.1 - Benign prostatic hyperplasia with lower urinary tract symptoms; N13.8 - Other obstructive and reflux uropathy Category: Medical Plan Twelve month follow-up PSA Orders: Orders Prostate Specific Antigen 364 Days N13.8 - Other obstructive and reflux uropathy, N40.1 - Benign prostatic hyperplasia with lower urinary tract symptoms Patient Instructions: Imaging studies, laboratory and physical exam results were discussed and reviewed in detail. No major barriers to patient understanding were identified. An opportunity to ask questions regarding the treatment plan was provided. All questions were answered. The patient expressed understanding and agreement with the above treatment plan. The patient is aware they should contact our office by phone for worsening of their current condition or the appearance of new urologic symptoms. Compliance is encouraged with any medications and followup testing that is ordered. It is a privilege to participate in the urologic care of your patient. If you have any questions or concerns regarding treatment for the above conditions, or other urologic issues, please do not hesitate to contact me. The office telephone contact is [phone]. This note is constructed using voice recognition software. While every effort has been made to ensure accuracy clinical business analyst errors may have been included. Yours sincerely, Dr Rajeev Sullivan MD, [facility] - Urology Providers of Expert, Compassionate Care for the Genitourinary System Coding Level of Care Code Est Pt Level 4 (97269) Diagnoses PSA elevation R97.20 BPH w urinary obs/LUTS N40.1; N13.8
== END 2024-08-23 15:46 | disposition home or self-care (01) ==
PROVIDERS: PCP Internal Medicine; Visit Provider Urology
DX: R97.20 Elevated prostate specific antigen [PSA] (principal); N40.1 Benign prostatic hyperplasia with lower urinary tract symptoms; N13.8 Other obstructive and reflux uropathy
CPT/HCPCS: 99214

== ENCOUNTER → 2024-08-23 14:52 | Outpatient (BNVA) | payer MEDICARE, OTHER, SELFPAY | PROVIDERS: PCP Internal Medicine; Visit Provider Urology | DX: N40.1 Benign prostatic hyperplasia with lower urinary tract symptoms (principal); N13.8 Other obstructive and reflux uropathy; R97.20 Elevated prostate specific antigen [PSA] | CPT/HCPCS: 99212 ==

== ENCOUNTER 2024-09-14 07:46 | Outpatient (REF) | payer MEDICARE, OTHER, SELFPAY ==
[2024-09-14 08:08] LABS: MANUAL DIFF FLAG NO
[2024-09-14 08:29] LABS: Basophils Percent Auto 0.5 % (0-2); Eosinophils Absolute Auto 0.5 X10*3/uL (0.0-0.4); Eosinophils Percent Auto 8.1 % (0-4); Hematocrit 42.4 % (42.0-52.0); Hemoglobin 13.9 g/dl (14.0-18.0); Imm Gran Abs Auto 0.01 X10*3/uL (0.00-0.03); Imm Gran Pct Auto 0.2 % (0.0-0.4); Immature Retic Fraction 10.4 % (2.3-13.4); Lymphocytes Percent Auto 34.2 % (20-40); Mean Corpuscular HGB Conc 32.8 g/dl (31.0-36.0); Mean Corpuscular Hemoglobin 30.7 pg (27.0-33.0); Mean Corpuscular Volume 93.6 fL (80.0-98.0); Mean Platelet Volume 9.5 fL (9.4-12.4); Monocytes Absolute Auto 0.3 X10*3/uL (0.1-1.2); Neutrophils Absolute Auto 2.9 x10*3/uL (2.0-8.3); Platelet Count 192 X10*3/uL (160-400); Red Blood Count 4.53 X10*6/uL (4.60-5.80); Red Cell Distribution Width 13.4 % (11.0-16.0); Retic HGB Equivalent 33.6 pg (30.0-35.0); Reticulocyte Percent 1.8 % (0.5-1.8); Reticulocytes Absolute 0.081 X10*6/uL (0.026-0.095); White Blood Count 5.7 X10*3/uL (4.8-10.8)
[2024-09-14 08:37] LABS: Estimated Average Glucose 123 mg/dL; Hemoglobin A1C 145.2984 umol/L; Hemoglobin A1c % 5.9 % (<6.0); Total Hemoglobin (HGBA1C) 3541.8544 umol/L
[2024-09-14 08:39] LABS: Prothrombin Time 12.2 SEC (10.9-12.4)
[2024-09-14 08:58] LABS: Alanine Aminotransferase 41 U/L (0-40); Alkaline Phosphatase 66 U/L (39-117); Anion Gap 11 (12-20); Aspartate Amino Transferase 48 U/L (5-37); Bilirubin Total 0.6 mg/dL (0.0-1.0); Blood Urea Nitrogen 17 mg/dL (9-16); Calcium 9.1 mg/dL (8.4-10.2); Carbon Dioxide 29 mmol/L (22-29); Chloride 109 mmol/L (96-108); Cholesterol 123 mg/dL (<200); Estimated Glomerular Filt Rate > 60; Glucose Random 111 mg/dL (60-115); HDL Cholesterol 57 mg/dL (>40); Iron 111 mcg/dL (45-160); LDL Cholesterol Calculated 55 mg/dL (<100); Percent Iron Saturation 50 % (15-50); Potassium 4.8 mmol/L (3.3-5.1); Sodium 144 mmol/L (135-145); Total Iron Binding Capacity 220 mcg/dL (228-428); Total Protein 6.4 g/dL (6.5-8.0); Triglycerides 55 mg/dL (<150); Unsaturated Iron Binding 109 ug/dL
[2024-09-14 09:11] LABS: Prostate Specific Antigen 1.56 ng/mL (<0.05-4.0)
[2024-09-14 09:17] LABS: Ferritin 91 ng/mL (20-250); Free T4 (Free Thyroxine) 1.01 ng/dL (0.71-1.85); Thyroid Stimulating Hormone 3.52 uIU/mL (0.32-4.0)
[2024-09-14 09:24] LABS: Folate 16.1 ng/mL (> or = 4.0); Prostate Specific Antigen Scr 1.61 ng/mL (<0.05-4.0); Vitamin B12 577 pg/mL (200-900)
[2024-09-14 12:21] LABS: Appearance Urine Clear; Color Urine Yellow; Glucose Urine UA 100 mg/dL (Negative); Leukocyte Esterase Urine Negative (Negative); Nitrite Urine Negative (Negative); Urine Blood Negative (Negative); Urine Ketones Negative (Negative); Urine Protein Negative (Neg-Trace)
[2024-09-14 12:27] LABS: Bacteria Urine None Seen (None Seen); Hyaline Casts Urine 0-2 /LPF (0-2); RBC Urine 0-2 /HPF (0-2); Squamous Epithelial Cell Urine 0-2 /HPF (0-2); WBC Urine 0-5 /HPF (0-5)
== END 2024-09-14 07:47 | disposition home or self-care (01) ==
LOC: HO.LAB 07:46
PROVIDERS: Urology; PCP Internal Medicine; Visit Provider Internal Medicine
DX: N40.1 Benign prostatic hyperplasia with lower urinary tract symptoms (principal); N13.8 Other obstructive and reflux uropathy; I42.9 Cardiomyopathy, unspecified; R73.01 Impaired fasting glucose; I63.512 Cerebral infarction due to unspecified occlusion or stenosis of left middle cerebral artery; E78.00 Pure hypercholesterolemia, unspecified; Z12.5 Encounter for screening for malignant neoplasm of prostate
CPT/HCPCS: 36415; 80053; 80061; 81001; 82607; 82728; 82746; 83036; 83540; 84153; 84439; 84443; 85025; 85045; 85610

== ENCOUNTER 2024-09-21 09:57 | Outpatient (AMB) | payer MEDICARE, OTHER, SELFPAY ==
--- NOTE | 2024-09-21 10:12 | AM.OFFVISMDC ---
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 Required: No Accompanied by: Self / Same As Patient Allergies No Known Allergies Allergy (Verified 09/21/24 10:18) Medication List - Last Reconciled 09/21/24 by Douglas Díaz MD apixaban 5 mg PO BID aspirin (Adult Aspirin Regimen) 81 mg PO DAILY atorvastatin 80 mg PO DAILY calcium polycarbophil (Fiber (calcium polycarbophil)) 1,250 mg PO DAILY ezetimibe (Zetia) 10 mg PO DAILY 90 days finasteride 5 mg PO DAILY 90 days lisinopril 10 mg PO DAILY metoprolol succinate ER 25 mg PO DAILY mometasone 50 mcg/actuation 2 sprays intranasal BID multivitamin,tx-minerals (Multi-Vitamin HP/Minerals capsule) 1 cap PO DAILY HPI SWV HPI Details The patient is a 73-year-old male presenting with cardiac thrombosis with aneurysm, hypertension, benign prostatic hyperplasia, and elevated blood glucose. He has a history of cardiac aneurysm with associated thrombosis, currently on anticoagulation therapy (apixaban) and aspirin for prevention. Thrombosis was noted during cardiovascular testing which has been stable , and the current management includes annual follow-up rather than a biannual review, as advised by Dr. Ruby. Patient has Hypertension has been noted elevated systolic readings around 140, despite being on medication (lisinopril and metoprolol). Recent readings at home have shown fluctuations, though measurements by his machine and those taken during consultation seem elevated, warranting medication adjustment. The patient also presents with benign prostatic hyperplasia, currently managed with finasteride with noted nocturia up to three times nightly, which may disturb sleep. Blood glucose levels have shown a gradual increase over the past months, with an HbA1c of 5.9%, placing him in the pre-diabetes category. The patient is on a controlled sugar intake regimen with dietary modifications to decrease glycemic load. There is a history of elevated liver enzymes associated with alcohol intake, but recent liver ultrasound did not indicate liver pathology. The mild anemia is longstanding, with stable hematocrit levels. A notable increase in eosinophils suggests a persistent allergic response, potentially environmental, managed with nasal spray. - Annual influenza vaccination administered - COVID-19 vaccinations completed - Shingles vaccination completed - Tetanus vaccination up to date - Respiratory syncytial virus (RSV) vaccine administered - Blood pressure monitoring advised for optimal management - Dietary counseling addressing blood glucose management - Encouraged to reduce nocturnal fluid intake - Urological evaluation ongoing for prostate monitoring - Consumes alcohol once a day, usually with dinner - Regularly exercises by walking approximately 2 miles each morning - Reports regular dietary habits, cautious of sugar intake - No tobacco or recreational drug use - Planning cruise and travel, necessitating medical clearance for physical activities due to age - Cardiovascular: Denies chest pain, palpitations, dizziness - Respiratory: Denies shortness of breath - Gastrointestinal: Denies nausea, vomiting; reports frequent nocturia - Neurological: Denies headaches, syncope, lauded sleep issues - Musculoskeletal: Denies joint pain, difficulty with ambulation - Genitourinary: Reports frequent urination during the night - Endocrine: Denies changes in weight; reports fluctuating blood sugar - Labs: Slightly elevated eosinophils indicating allergies - Blood glucose: HbA1c at 5.9% - Liver ultrasound: Unremarkable findings - Kidney function: Creatinine 1.03 with an improved GFR [facility] Medical History COVID-19 vaccine series completed Skin cancer Annual physical exam Patent foramen ovale Mercury poisoning Cardiomyopathy Hypercholesterolemia PSA elevation Impaired fasting glucose Coronary artery disease Thrombophlebitis Surgical History H/O colonoscopy History of surgery Family History Father CHF (congestive heart failure) CAD (coronary artery disease) CVD (cardiovascular disease) Skin cancer Mother CVD (cardiovascular disease) Acute CVA (cerebrovascular accident) Paternal Grandfather Acute CVA (cerebrovascular accident) Maternal Grandfather CAD (coronary artery disease) Social History (Updated 09/21/24 @ 11:08 by Douglas Díaz MD) Housing: House Alcohol intake: current Comment: once a day 1 glass dinner Patient Tobacco Use Status: Never used Tobacco e-Cigarette/Vaping Use: Never Used Second Hand Smoke Exposure: No Current occupational status: retired Cognitive needs: No Hearing needs: No Vision needs: Yes Questionnaire Medicare Wellness Checkup [age] What gender do you identify with?: male During the past 4 weeks, how much have you been bothered by emotional problems such as feeling anxious, depressed, irritable, sad or downhearted, and blue?: not at all During the past 4 weeks, has your physical & emotional health limited your social activities with family, friends, neighbors, or groups?: not at all During the past 4 weeks, how much bodily pain have you generally had?: no pain During the past 4 weeks, was someone available to help you if you needed & wanted help?: yes, as much as I wanted During the past 4 weeks, what was the hardest physical activity you could do for at least 2 minutes?: very heavy Can you get to places out of walking distance without help? (For eg., can you travel alone on buses, taxis or drive your car?): Yes Can you go shopping for groceries or clothes without someone's help?: Yes Can you prepare your own meals?: Yes Can you do your housework without help?: Yes Because of any health problems, do you need the help of another person with your personal care needs such as eating, bathing, dressing or getting around the house?: No Can you handle your own money without help?: Yes During the past 4 weeks, how would you rate your health in general?: excellent During the past 4 weeks how have things been going for you?: very well; could hardly better Are you having difficulties driving your car?: no Do you always fasten your seat belt when you are in a car?: yes, usually During past 4 weeks, have you been bothered by the following: never: Falling or dizzy when standing up, Sexual problems?, Trouble eating well?, Teeth or denture problems?, Problems using the telephone? and Tiredness or fatigue? Have you fallen 2 or more times in the past year?: No Are you afraid of falling?: No Are you a smoker?: no During the past 4 weeks, how many drinks of wine, beer, or other alcoholic beverages did you have?: 6-9 drinks per week Do you exercise for about 20 minutes 3 or more times a week?: yes, most of the time Have you been given information to help with the following?: no: Hazards in your house that might hurt you? and no: Keeping track of your medications? How often do you have trouble taking medicines the way you have been told to take them?: I always take medicine as prescribed How confident are you that you can control & manage most of your health problems?: very confident What is your race?: White PHQ-9 Over the last 2 weeks, how often have you been bothered by any of the following problems? 1. Little interest or pleasure in doing things: not at all 2. Feeling down, depressed, or hopeless: not at all 3. Trouble falling or staying asleep, or sleeping too much: not at all 4. Feeling tired or having little energy: not at all 5. Poor appetite or overeating: not at all 6. Feeling bad about yourself - or that you are a failure or have let yourself or your family down: not at all 7. Trouble concentrating on things, such as reading the newspaper or watching television: not at all 8. Moving or speaking so slowly that other people could have noticed. Or the opposite - being so fidgety or restless that you have been moving around a lot more than usual: not at all 9. Thoughts that you would be better off or of hurting yourself in some way: not at all Total score: 0 Depression Screening Interpretation: Negative Depression Screening Done: Yes Source: Developed by Drs. Cyrus Griggs, Julita Harley, Adriel Sargent and colleagues, with an educational miriam from [employer]. Fall Risk Assessment Fall Risk Assessment Fall risk assessment: No Falls in past year Thrive Questionnaire Date Thrive assessed: 09/21/24 I am a: Patient What is your living situation today?: I have a steady place to live Within the past 12 months, did the food you bought not last and you didn't have the money to get more?: Never true Within the past 12 months, did you worry whether your food would run out before you got money to buy more?: Never true Do you have trouble paying for medicines?: No Do you have trouble getting transportation to medical appointments?: No Do you have trouble paying your heating and electricity bill?: No Do you have trouble taking care of your child, family member or friend?: No Do you have trouble with day-to-day activities such as bathing, preparing meals, shopping, managing finances, etc.?: No Are you currently unemployed and looking for a job?: No Are you interested in more education?: No Please select the resources that you would like help with: None Currently or been in a relationship where the following occur: No concerns reported THRIVE Score: 0 AUDIT C Alcohol Use Questionnaire (AUDIT-C) 1. How often do you have a drink containing alcohol?: 4 or more times a week 2. How many drinks containing alcohol do you have on a typical day when you are drinking?: 1 or 2 3. How often do you have six or more drinks on one occasion?: Never Total Score: 4 DEANNE-7 AMB Questionnaire DEANNE-7 Date DEANNE - 7 assessed: 09/21/24 Feeling nervous, anxious, or on edge: 0 = Not at all Not being able to stop or control worryin = Not at all Worrying too much about different things: 0 = Not at all Trouble relaxin = Not at all Being so restless that it is hard to sit still: 0 = Not at all Becoming easily annoyed or irritable: 0 = Not at all Feeling afraid as if something awful might happen: 0 = Not at all Total DEANNE-7 score (0-4 normal; 5-9 mild; 10-14 moderate; 15-21 severe): 0 Source: Developed by Drs. Cyrus Griggs, Julita Harley, Adriel Sargent and colleagues, with an educational miriam from [employer]. Review of Systems Const Denies poor appetite and Denies weakness Eyes Denies no additional complaints ENT Reports Normal hearing present, Denies dizziness, Denies nasal congestion, Denies tinnitus and Denies sore throat Card Denies chest pain, Denies syncope, Denies rapid heart rate and Denies dyspnea Resp Denies cough and Denies dyspnea GI Denies change in stool character, Reports constipation, Denies diarrhea, Denies nausea and Denies vomiting Denies dysuria and Denies urinary frequency Neuro Reports Normal hearing present, Denies confusion, Denies dizziness, Denies syncope and Denies weakness Psych Denies confusion Physical Exam Vital Signs: Last Vital Signs Pulse 57 09/21/24 10:16 BP 144/86 H 09/21/24 10:16 Pulse Ox 98 09/21/24 10:16 Oxygen Delivery Method Room Air 09/21/24 10:16 BMI result Body Mass Index 25.5 Const General: No confusion Orientation/consciousness: No confusion HEENT Head: Yes normocephalic Ears: external ears normal and TM's normal bilaterally Face and sinus: Yes normal facial exam Mouth: moist mucous membranes Throat: Yes tonsils normal Eyes Conjunctivae: conjunctivae normal Pupils: Equal, round and reactive pupils present and Pupil accommodation reflex normal Direct Ophthalmoscopy: normal light reflex Neck Neck: No lymphadenopathy Thyroid: Thyroid normal Chest Chest palpation & inspection: normal inspection of the chest Resp Effort & Inspection: normal respiratory effort and no audible wheezes Auscultation: clear to auscultation bilaterally, no crackles, no wheezes and lung sounds not diminished Cardio Rate: regular rate Rhythm: regular rhythm Peripheral pulses: radial pulses present and dorsalis pedis present GI Palpation (GI): no masses Auscultation: normal bowel sounds and normoactive bowel sounds Rectal Exam - Male: Yes deferred Skin General skin exam: no rashes or lesions noted Rashes: no rashes Neuro General: No confusion Cranial nerves: Yes Equal, round and reactive pupils present and Yes Normal hearing present Cognition (Neuro): normal cognition Gait exam (Neuro): Normal gait present Motor exam (neuro): 5/5 motor strength present throughout Deep tendon reflexes (DTR's): Right brachioradialis reflex intensity grade: 2+, Left brachioradialis reflex intensity grade: 2+, Right patellar reflex intensity grade: 2+ and Left patellar reflex intensity grade: 2+ Extrem General: No edema Assessment & Plan Assessment & Plan (1) CVA (cerebral vascular accident): Comment: January 2023Left acute arterial ischemic stroke MCA middle cerebral artery aphasia, oropharyngeal dysphagia and dysarthria Code(s): I63.9 - Cerebral infarction, unspecified Qualifiers: CVA mechanism: occlusion Laterality of affected vessel: left Precerebral and cerebral artery: middle cerebral artery Qualified Code(s): I63.512 - Cerebral infarction due to unspecified occlusion or stenosis of left middle cerebral artery Plan: Continue with anticoagulation with apixaban (2) BPH w urinary obs/LUTS: Code(s): N40.1 - Benign prostatic hyperplasia with lower urinary tract symptoms; N13.8 - Other obstructive and reflux uropathy Plan: Patient follows up with urology presently on finasteride (3) PSA elevation: Comment: Dr. Sullivan Code(s): R97.20 - Elevated prostate specific antigen [PSA] Plan: Continue to have surveillance under urology (4) Cardiomyopathy: Comment: Secondary to coronary embolus and myocardial infarction July 2023 cardiac MRICardiac MRI showing left ventricular size normal ejection fraction 54% global left ventricular function is low normal. Consistent with prior infarct in the LAD territory unchanged from the cardiac MRI February 2023 Code(s): I42.9 - Cardiomyopathy, unspecified Qualifiers: Cardiomyopathy type: unspecified Qualified Code(s): I42.9 - Cardiomyopathy, unspecified Plan: Patient is being followed up by Cardiology on metoprolol 25 mg once a day (5) Thrombus in heart chamber: Code(s): I51.3 - Intracardiac thrombosis, not elsewhere classified Plan: Continue with anticoagulation (6) Medicare annual wellness visit, subsequent: Code(s): Z00.00 - Encounter for general adult medical examination without abnormal findings Plan: Patient is advised to eat healthy, keep well hydrated, keep active and have adequate sleep. (7) Impaired fasting glucose: Code(s): R73.01 - Impaired fasting glucose Plan: Decrease the amount of carbohydrate intake, pasta, bread, rice and potatoes are all sugar and that is aside from all the sweet stuff, remember that fruits are good but they are Sweet also. (8) Coronary artery disease: Comment: Embolus anterior [place] January 2007 Dr. Malone and [facility] Code(s): I25.10 - Atherosclerotic heart disease of [place] coronary artery without angina pectoris Qualifiers: Associated angina: without angina Coronary Disease-Associated Artery/Lesion type: [place] artery [place] vs. transplanted heart: [place] heart Qualified Code(s): I25.10 - Atherosclerotic heart disease of [place] coronary artery without angina pectoris Plan: Control the cholesterol, weight, blood pressure, diabetes continue with anticoagulation and aspirin 81 mg once a day (9) Hypercholesterolemia: Code(s): E78.00 - Pure hypercholesterolemia, unspecified Plan: Avoid fried foods, chicken skin, eggs, butter margarine, pastries and meat. Be it pork or beef they have a lot of cholesterol LDL goal of less than 70 and triglyceride of less than 150 on Zetia and atorvastatin (10) Hypertension: Code(s): I10 - Essential (primary) hypertension Plan - Adjust lisinopril dosage to 20 mg daily to optimize blood pressure control - Regular monitoring of blood pressure at home with own device - Continue anticoagulation with apixaban and low-dose aspirin for thrombosis prevention - Maintain finasteride regimen for benign prostatic hyperplasia - Monitor nocturnal urination patterns; advised to minimize evening fluid intake - Encourage adherence to a low glycemic diet to manage blood glucose effectively - Continue allergen management with nasal spray for elevated eosinophils - Follow-up blood work to assess effects of increased lisinopril on renal function During the consultation, I discussed the ongoing management of the patient's cardiovascular condition, highlighting the importance of blood pressure monitoring and anticoagulation therapy as preventive strategies against complications like thrombosis. There was a comprehensive discussion on adjusting medication to address fluctuating blood pressure readings. We also explored lifestyle modifications to aid glucose control, recognizing the mild elevation in HbA1c. The patient agreed with the proposed changes and understands the need for increased vigilance regarding his sugar intake. I recommended regular follow-ups to ensure all conditions remain stable. The effects of existing medication on arousal were contemplated, and the patient accepted the explained cause linked to beta-blockers and finasteride. Advice was provided on keeping home blood pressure readings consistent and minimizing evening fluid intake to improve nocturia. - Take lisinopril as prescribed, once daily - Monitor blood pressure regularly at home and report any significant changes - Continue current medications, including apixaban, aspirin, and finasteride, as advised - Follow a balanced diet and minimize high-sugar foods and drinks - Limit evening fluid intake to reduce nighttime urination - Maintain scheduled medical testing, particularly regarding blood glucose levels - Complete blood tests three weeks post-medication adjustment - Monitor for adverse reactions to medication and seek medical advice if needed - Schedule a follow-up visit for ongoing evaluation and management within three months - Keep updated on vaccinations and health screenings Orders: Orders Basic Metabolic Panel 3 Weeks I10 - Essential (primary) hypertension Medications: Changed From lisinopril 10 mg PO DAILY 90 tabs 1RF I10 - Essential (primary) hypertension To lisinopril 20 mg PO DAILY 90 tabs 2RF I10 - Essential (primary) hypertension Quality Reporting (2019) Fall Risk Screening ([facility] 139) Fall risk assessment: No Falls in past year Depression/Bipolar (159/160/161/177) PHQ-9: Total score: 0 Coding Level of Care Code Medicare Subsequent (G0439) Diagnoses Cerebrovascular accident (CVA) due to occlusion of left middle cerebral artery I63.512 CVA mechanism: occlusion Laterality of affected vessel: left Precerebral and cerebral artery: middle cerebral artery BPH w urinary obs/LUTS N40.1; N13.8 PSA elevation R97.20 Cardiomyopathy, unspecified type I42.9 Cardiomyopathy type: unspecified Thrombus in heart chamber I51.3 Medicare annual wellness visit, subsequent Z00.00 Impaired fasting glucose R73.01 Coronary artery disease involving [place] coronary artery of [place] heart without angina pectoris I25.10 Associated angina: without angina Coronary Disease-Associated Artery/Lesion type: [place] artery [place] vs. transplanted heart: [place] heart Hypercholesterolemia E78.00 Hypertension I10
[2024-09-21 10:16] VITALS: BP 144/86; PULSE 57; O2SAT 98; BMI 25.5
== END 2024-09-21 11:37 | disposition home or self-care (01) ==
PROVIDERS: PCP Internal Medicine; Visit Provider Internal Medicine
DX: Z00.00 Encounter for general adult medical examination without abnormal findings (principal); I63.512 Cerebral infarction due to unspecified occlusion or stenosis of left middle cerebral artery; I42.9 Cardiomyopathy, unspecified; N40.1 Benign prostatic hyperplasia with lower urinary tract symptoms; N13.8 Other obstructive and reflux uropathy; R97.20 Elevated prostate specific antigen [PSA]; I51.3 Intracardiac thrombosis, not elsewhere classified; R73.01 Impaired fasting glucose; I25.10 Atherosclerotic heart disease of native coronary artery without angina pectoris; E78.00 Pure hypercholesterolemia, unspecified; I10 Essential (primary) hypertension

== ENCOUNTER → 2024-09-21 09:57 | Outpatient (BNVA) | payer MEDICARE, OTHER, SELFPAY | PROVIDERS: PCP Internal Medicine; Visit Provider Internal Medicine ==

== ENCOUNTER 2024-10-12 11:50 | Outpatient (REF) | payer MEDICARE, OTHER, SELFPAY ==
[2024-10-12 12:51] LABS: Anion Gap 12 (12-20); Blood Urea Nitrogen 22 mg/dL (9-16); Calcium 9.4 mg/dL (8.4-10.2); Carbon Dioxide 27 mmol/L (22-29); Chloride 109 mmol/L (96-108); Estimated Glomerular Filt Rate > 60; Glucose Random 123 mg/dL (60-115); Potassium 4.9 mmol/L (3.3-5.1); Sodium 143 mmol/L (135-145)
== END 2024-10-12 11:51 | disposition home or self-care (01) ==
LOC: HO.LAB 11:50
PROVIDERS: PCP Internal Medicine; Visit Provider Internal Medicine
DX: I10 Essential (primary) hypertension (principal)
CPT/HCPCS: 36415; 80048

== ENCOUNTER 2024-11-24 15:42 | Outpatient (AMB) | payer MEDICARE, OTHER, SELFPAY ==
--- OUTSIDE RECORDS SUMMARY | 2024-11-24 15:45 | XMS_ITS | Patient Health Record ---
Author Organization [facility] Address [address] [place] [address] Care Team Providers Care Deputy Sheriff Bailiff Name Role Phone Douglas Díaz Primary Care Provider Amari Ho Unavailable [phone] Allergies No Known Allergies Reason For Referral No Information Medications Medication SIG (Take, Route, Frequency, Duration) Notes Start Date End Date Status ZyrTEC Allergy 10 MG 1 tablet Orally Onc e a day for 30 day(s) Active Aspirin 81 MG 1 tablet Orally Once a day for 30 day(s) Active Finasteride 5 MG 1 tablet Orally Once a day for 30 day(s) Active Atorvastatin Calcium 80 MG 1 tablet Oral ly Once a day for 30 day(s) Active Lisinopril 10 MG 1 tablet Orally Once a day for 30 day(s) Active Multivitamin Active Metoprolol Succinate 25 MG 1 capsule Ora lly Once a day for 30 day(s) Active Immunizations Vaccine Route Administration Date Status Comme nts COVID-19 Moderna Vaccine Unknown 01/07/2022 Administered 1st 11/27/20 2nd 12/25/20 3rd 07/25/21 Social History Tobacco Use: Social History Observation Description Date Details (start date - stop date) Never Smoker NA - NA Tobacco Use/Smoking Question Answer Notes Are you a: nonsmoker Alcohol Screen Question Answer Notes Did you have a drink containing alcohol in the p ast year? Yes Points 0 Interpretation Negative Tobacco use other than smoking: Question Answer Notes Are you an other tobacco user? No Problems Problem Type SNOMED Code ICD Code Onset Dates Problem Status W/U Status Risk Notes Problem Plantar wart (43102052) Plantar wart (B07.0) Active confirmed Plan Of Treatment Pending Test Test Name Order Date X ray : Foot, left 3V 04/21/2022 [id number] Destruction, 1-14 04/21/2022 Insurance Providers Payer Name Payer Address Payer Phone Subscriber Number Group Number Insured Name Patient Relationship to Insured Coverage Start Date Coverage End Date Medicare National [employer] [address] [place] [address] [id number] Suraj Bee Self - patient is the insured [employer] [address] [place] [address] [id number] Suraj Bee Self - patient is the insured Medical (General) History Medical History History ICD Code Arthritis Cancer Heart disease raynauds disease Measles Mumps Chicken pox HTN Surgical History Surgery Date(Month/Year) Closure of PSO 08/2007 MOHS 10/2021
--- OUTSIDE RECORDS SUMMARY | 2024-11-24 15:45 | XMS_ITS | Patient Health Record ---
Author Organization [facility] Address [address] [place] [address] Care Team Providers Care Entertainment Agent Name Role Phone Po Douglas JAVED Primary Care Provider Cyrus Loredo [phone] REASON FOR REFERRAL No Information MEDICATIONS Medication SIG (Take, Route, Frequency, Duration) Notes Start Date End Date Status ZyrTEC Allergy Activ e Multi Vitamin/Minerals - Orally Active Lisinopril 5 MG Orally Acti ve Aspirin 81 MG 1 tablet Orally Once a day Active Metoprolol Tartrate 25 MG 1 tablet with food Orally Twice a day Active Atorvastatin Calcium 80 MG 1 tablet Oral ly Once a day Active IMMUNIZATIONS Vaccine Route Administration Date Status Comme nts Influenza Unknown 06/04/2021 Administered SOCIAL HISTORY Sex Assigned At : Social History Observation Description Sex Assigned At Unknown PROBLEMS Problem Type ICD Code Onset Dates Problem Status W/U Status Risk SNOMED Code Notes Problem Encounter for screening for malignant neoplasm of colon (Z12.11) Active confirmed 541821209 Problem Encounter for screening for malignant neoplasm of rectum (Z12.12) Active confirmed Screening fo r malignant neoplasm of rectum (546694548) Problem Preprocedural examination (Z01.818) Active confirmed 24168664 Problem Long-term use of aspirin therapy (Z79.82) Active confirmed 492021401 Problem Diverticulosis of colon (K57.30) Active confirmed Diverticulosi s of colon (614877196) PLAN OF TREATMENT Pending Test Test Name Order Date Pathology 03/04/2022 Future Test Test Name Order Date COLONOSCOPY 10/14/2016 COLONOSCOPY 01/15/2022 Insurance Providers Payer Name Payer Address Payer Phone Subscriber Number Group Number Insured Name Patient Relationship to Insured Coverage Start Date Coverage End Date MEDICARE OF [place] [address] [place] [address] [id number] RAINEJACQUI PEDERSEN Self - patient is the insured [facility] [address] [place] [address] [id number] JACQUI GODOY Self - patient is the insured MEDICAL (GENERAL) HISTORY Medical History History ICD Code AR 01/24/2007--he describes t hat his cardiac catheterization revealed a clot in one of the coronary arteries that was removed--there was no sign of any coronary artery disease otherwise and no stents nor angioplasty were required--he ultimately was found to have what sounds like some type of septal defect as the cause of this clot traveling into the coronary artery--he was initially on Coumadin, but ultimately had the septal defect closed angiographically by an film flat inspector at [facility] in [place] Denies DM,CVA,Lung disease,renal disease Hyperlipidemia Negative screening colonosco py in 2005, other than internal hemorrhoids, with Dr. 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
[2024-11-24 15:46] VITALS: BP 136/80; PULSE 59; O2SAT 96; BMI 25.8
--- NOTE | 2024-11-24 15:46 | MHC.PC.OV ---
Vital Signs 11/24/24 15:46 Height 5 ft 6 in Weight 160 lb BMI 25.8 BP 136/80 Blood Pressure Location Lt brachial Position Sitting Pulse 59 Pulse Source Pulse Oximeter Pulse Oximetry (%) 96 Oxygen Delivery Method Room Air Intake Visit Reasons: 3 month f/u Allergies No Known Allergies Allergy (Verified 11/24/24 15:46) Tobacco use date assessed: 11/24/24 Fall risk assessment: No Falls in past year Last assessed Fall Risk: 11/24/24 Dental Screening Dental Screen Date: 11/24/24 Did you have a dental visit in the last 12 months?: Yes Did you have a dental problem in the last 6 months where you did not have access to dental care?: No Was dental information given to patient?: Patient has dentist HPI 3 month f/u HPI Details The patient is a 74-year-old male presenting with a follow-up for coronary artery disease and anticoagulation management. The patient has a significant medical history including coronary artery disease and was noted to have a heart chamber thrombus for which he was initiated on anticoagulant therapy in a prior visit. During his last visit on September 21, it was documented that his blood pressure was elevated, leading to an increase in his lisinopril dosage. Blood work conducted on September 14 revealed mild anemia with a hemoglobin level of 13.9 g/dL, an elevated blood sugar level, and an LDL cholesterol level of 55 mg/dL. The patient was previously advised to undergo an abdominal ultrasound due to liver concerns, which was performed in May, revealing only a hepatic cyst. He is currently on a regimen that includes lisinopril, metoprolol, apixaban, aspirin, and atorvastatin. The aim is to continue controlling his blood pressure, enhancing his cholesterol management, and maintaining anticoagulation to prevent further cardiovascular events. The patient did not report any acute changes or new symptoms, and his recent self-monitored blood pressure readings have shown occasional elevation, although generally they are declining. He denies any dizziness or other troubling symptoms at this time. Socially, the patient traveled recently, engaging in activities such as cruising and is planning another trip involving long-duration flights, discussing preferences regarding travel arrangements and comfort. [facility] Medical History COVID-19 vaccine series completed Skin cancer Annual physical exam Patent foramen ovale Mercury poisoning Cardiomyopathy Hypercholesterolemia PSA elevation Impaired fasting glucose Coronary artery disease Thrombophlebitis Surgical History H/O colonoscopy History of surgery Family History Father CHF (congestive heart failure) CAD (coronary artery disease) CVD (cardiovascular disease) Skin cancer Mother CVD (cardiovascular disease) Acute CVA (cerebrovascular accident) Paternal Grandfather Acute CVA (cerebrovascular accident) Maternal Grandfather CAD (coronary artery disease) Social History (Updated 09/21/24 @ 11:08 by Douglas Díaz MD) Housing: House Alcohol intake: current Comment: once a day 1 glass dinner Patient Tobacco Use Status: Never used Tobacco Tobacco use type: Cigarette e-Cigarette/Vaping Use: Never Used Second Hand Smoke Exposure: No Current occupational status: retired Cognitive needs: No Hearing needs: No Vision needs: Yes Questionnaire PHQ-9 Over the last 2 weeks, how often have you been bothered by any of the following problems? 1. Little interest or pleasure in doing things: not at all 2. Feeling down, depressed, or hopeless: not at all 3. Trouble falling or staying asleep, or sleeping too much: not at all 4. Feeling tired or having little energy: not at all 5. Poor appetite or overeating: not at all 6. Feeling bad about yourself - or that you are a failure or have let yourself or your family down: not at all 7. Trouble concentrating on things, such as reading the newspaper or watching television: not at all 8. Moving or speaking so slowly that other people could have noticed. Or the opposite - being so fidgety or restless that you have been moving around a lot more than usual: not at all 9. Thoughts that you would be better off or of hurting yourself in some way: not at all Total score: 0 Depression Screening Interpretation: Negative Depression Screening Done: Yes Source: Developed by Drs. Cyrus Griggs, Julita Harley, Adriel Sargent and colleagues, with an educational miriam from [employer]. Thrive Questionnaire Date Thrive assessed: 11/24/24 I am a: Patient What is your living situation today?: I have a steady place to live Within the past 12 months, did the food you bought not last and you didn't have the money to get more?: Never true Within the past 12 months, did you worry whether your food would run out before you got money to buy more?: Never true Do you have trouble paying for medicines?: No Do you have trouble getting transportation to medical appointments?: No Do you have trouble paying your heating and electricity bill?: No Do you have trouble taking care of your child, family member or friend?: No Do you have trouble with day-to-day activities such as bathing, preparing meals, shopping, managing finances, etc.?: No Are you currently unemployed and looking for a job?: No Are you interested in more education?: No Currently or been in a relationship where the following occur: No concerns reported THRIVE Score: 0 AUDIT C Alcohol Use Questionnaire (AUDIT-C) 1. How often do you have a drink containing alcohol?: 4 or more times a week 2. How many drinks containing alcohol do you have on a typical day when you are drinking?: 1 or 2 3. How often do you have six or more drinks on one occasion?: Never Total Score: 4 DEANNE-7 AMB Questionnaire DEANNE-7 Date DEANNE - 7 assessed: 11/24/24 Feeling nervous, anxious, or on edge: 0 = Not at all Not being able to stop or control worryin = Not at all Worrying too much about different things: 0 = Not at all Trouble relaxin = Not at all Being so restless that it is hard to sit still: 0 = Not at all Becoming easily annoyed or irritable: 0 = Not at all Feeling afraid as if something awful might happen: 0 = Not at all Total DEANNE-7 score (0-4 normal; 5-9 mild; 10-14 moderate; 15-21 severe): 0 Source: Developed by Drs. Cyrus Griggs, Julita Harley, Adriel Sargent and colleagues, with an educational miriam from [employer]. Physical exam (Primary Care) Vital Signs: Last Vital Signs Pulse 59 11/24/24 15:46 BP 136/80 11/24/24 15:46 Pulse Ox 96 11/24/24 15:46 Oxygen Delivery Method Room Air 11/24/24 15:46 BMI result Body Mass Index 25.8 Tobacco/Smoking Status: Tobacco use Status Tobacco use date assessed 11/24/24 11/24/24 15:48 Patient Tobacco Use Status Never used Tobacco 11/24/24 15:48 Tobacco use type Cigarette 11/24/24 15:48 e-Cigarette/Vaping Use Never Used 11/24/24 15:48 PHQ-9: PHQ-9 Score PHQ-9: Total score 0 11/24/24 16:10 Depression Screening Interpretation: Negative Thrive Assessment: Date of Thrive Assessment Date Thrive assessed 11/24/24 11/24/24 15:56 Currently or been in a relationship where the following occur: No concerns reported Const General: alert; No acute distress Eyes Conjunctivae: conjunctivae normal Resp Auscultation: clear to auscultation bilaterally Cardio Rate: regular rate Rhythm: regular rhythm GI Inspection: Yes normal to inspection Extrem General: Yes normal to inspection and No edema Coding Level of Care Code Est Pt Level 4 (89934) Complex EM visit Add On G2211 Diagnoses Hypertension I10 Coronary artery disease involving [place] coronary artery of [place] heart without angina pectoris I25.10 Associated angina: without angina Coronary Disease-Associated Artery/Lesion type: [place] artery [place] vs. 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 Decrease salt intake and exercise patient is on lisinopril 20 mg once a day metoprolol 25 mg once a day (2) Coronary artery disease: Comment: Embolus anterior [place] January 2007 Dr. Malone and Tung Jamesigham Code(s): I25.10 - Atherosclerotic heart disease of [place] coronary artery without angina pectoris Category: Medical Qualifiers: Associated angina: without angina Coronary Disease-Associated Artery/Lesion type: [place] artery [place] vs. transplanted heart: [place] heart Qualified Code(s): I25.10 - Atherosclerotic heart disease of [place] coronary artery without angina pectoris Plan: Control the cholesterol, weight, blood pressure, presently on anticoagulation with apixaban and aspirin (3) Impaired fasting glucose: Code(s): R73.01 - Impaired fasting glucose Category: Medical Plan: Decrease the amount of carbohydrate intake, pasta, bread, rice and potatoes are all sugar and that is aside from all the sweet stuff, remember that fruits are good but they are Sweet also. (4) Hypercholesterolemia: Code(s): E78.00 - Pure hypercholesterolemia, unspecified Category: Medical Plan: Avoid fried foods, chicken skin, eggs, butter margarine, pastries and meat. Be it pork or beef they have a lot of cholesterol on atorvastatin 80 mg once a day and blood work in September reveals LDL goal of less than 70. (5) CVA (cerebral vascular accident): Comment: January 2023Left acute arterial ischemic stroke MCA middle cerebral artery aphasia, oropharyngeal dysphagia and dysarthria Code(s): I63.9 - Cerebral infarction, unspecified Category: Medical Qualifiers: CVA mechanism: occlusion Laterality of affected vessel: left Precerebral and cerebral artery: middle cerebral artery Qualified Code(s): I63.512 - Cerebral infarction due to unspecified occlusion or stenosis of left middle cerebral artery Plan: Continue with aspirin and controlling blood pressure and cholesterol (6) Thrombus in heart chamber: Code(s): I51.3 - Intracardiac thrombosis, not elsewhere classified Category: Medical Plan: Continue with anticoagulation Orders: Orders Complete Blood Count Auto Diff 6 Months I25.10 - Atherosclerotic heart disease of [place] coronary artery without angina pectoris Comprehensive Met. Panel Today I25.10 - Atherosclerotic heart disease of [place] coronary artery without angina pectoris Free T4 (Free Thyroxine) 6 Months I25.10 - Atherosclerotic heart disease of [place] coronary artery without angina pectoris Lipid Panel 6 Months E78.00 - Pure hypercholesterolemia, unspecified, I25.10 - Atherosclerotic heart disease of [place] coronary artery without angina pectoris Thyroid Stimulating Hormone 6 Months I25.10 - Atherosclerotic heart disease of [place] coronary artery without angina pectoris Hemoglobin A1c 6 Months I25.10 - Atherosclerotic heart disease of [place] coronary artery without angina pectoris Vitamin B12 and Folate 6 Months I25.10 - Atherosclerotic heart disease of [place] coronary artery without angina pectoris
--- OUTSIDE RECORDS SUMMARY | 2024-11-24 15:46 | XMS_ITS | Clinical Summary ---
Author Organization [facility] Address [address] [place] [address] Care Team Providers Care Lieutenant Fire Fighter Name Role Phone Unavailable Primary Care Provider Unavailabl e Social History Tobacco Use Types Packs/Day Years Used Date Smoking Tobacco: Never Assessed Sex and Gender Information Value Date Recorded Sex Assigned at Not on file Gender Identity Not on file Sexual Orientation Not on file Plan of Treatment Health Maintenance Due Date Last Done Comments Hepatitis C Virus Screening 1950 DTaP/Tdap/Td Vaccines (1 - Tdap) 1968 Colonoscopy 1994 Pneumococcal Vaccines 50+ (1 of 1 - PCV) 1999 Zoster (Shingles) Vaccine (1 of 2) 1999 Influenza Vaccine 05/04/2024 07/18/2020 COVID-19 Vaccine ( - 2023-2 5 season) 2024 RSV Vaccine 60 years and old er and Patients (1 - 1-dose 75+ series) 2024 Hepatitis B Vaccines Aged Out No long er eligible based on patient's age to complete this topic
--- OUTSIDE RECORDS SUMMARY | 2024-11-24 15:46 | XMS_ITS | Encounter Summary ---
Author Organization [facility] Address [address] [id number] Care Team Providers Care Unemployment Inspector Name Role Phone Unavailable Primary Care Provider Unavailabl e Encounter Details Date Type Department Care Team (Latest Contact Info) Description 01/04/2021 Lab Requisition [facility] [address] [place] [address] [address] [place] [address] Kemar Melendez MD [address] [place] [address] Encounter for laboratory testing for COVID-19 virus Social History Tobacco Use Types Packs/Day Years Used Date Smoking Tobacco: Never Assessed Sex and Gender Information Value Date Recorded Sex Assigned at Not on file Gender Identity Not on file Sexual Orientation Not on file COVID-19 Exposure Response Date Recorded In the last month, have you been in contact with someone who was confirmed or suspected to have Coronavirus / COVID-19? Unable to assess 01/04/2021 9:30 AM EDT documented as of this encounter Plan of Treatment Not on file documented as of this encounter Procedures Procedure Name Priority Date/Time Associated Diagnosis Comments COVID-19 (SARS-COV-2), [facility] (IN-HOUSE) Routine 01/04/2021 9:31 AM EDT Encounter for laboratory testing for COVID-19 virus [ICD-10-CM] documented in this encounter Results * COVID-19 (SARS-CoV-2), [facility] (In-House) (01/04/2021 9:31 AM EDT) SARS CoV 2 Not Detected Not Detected 01/04/2021 1:44 PM EDT [facility] Comment: Negative results do not preclude SARS-CoV-2 (COVID-19)infection and should not be used as the sole basis for treatment or other patient management decisions. The SARS-CoV-2 (Covid-19) Nucleic Acid Amplification Assay is limited to laboratories certified under the Clinical Laboratory Improvement Amendments of 1988 (CLIA), 42 U.S.C. 263a, to perform high complexity tests. Nucleic acid amplication tests include RT-PCR and TMA. This assay has not been FDA cleared or approved, however, this assay has been authorized by the Food and Drug Administration (FDA) under an Emergency Use Authorization (EUA). ??Validation was completed and performance characteristics established by [facility] as per the FDA and CLIA requirement for this EUA. The Aptima SARS-CoV-2 assay Letter of Authorization, along with the authorized Fact Sheet for Healthcare Providers, the authorized Fact Sheet for Patients, and authorized labeling are available on the FDA website: https://www.fda.gov/medical-devices/lskxmthwu-gtjyxqcrai-rmzmxjk-devices/emergen - f-zfudamnoqebrbp-cakxmrj-devices. Performed at [facility] [place] ??[place] License [id number] ??CLIA [id number] Source Nasopharyngeal 01/04/2021 1:44 PM EDT [facility] Comment:Performed at [facility], [facility], [place] license No. [id number] CLIA No. [id number] Microbiology Nasopharyngeal swab / Unknown 01/04/2021 9:31 AM EDT 01/04/2021 9:31 AM EDT Kemar Melendez MD BODY FLUIDS AND BOY CARDENAS ORDERABLES [facility] [address] [place] [address] documented in this encounter Visit Diagnoses Diagnosis Encounter for laboratory testing for COVID-19 virus documented in this encounter
== END 2024-11-24 16:20 | disposition home or self-care (01) ==
PROVIDERS: PCP Internal Medicine; Visit Provider Internal Medicine
DX: I10 Essential (primary) hypertension (principal); I25.10 Atherosclerotic heart disease of native coronary artery without angina pectoris; R73.01 Impaired fasting glucose; E78.00 Pure hypercholesterolemia, unspecified; I63.512 Cerebral infarction due to unspecified occlusion or stenosis of left middle cerebral artery; I51.3 Intracardiac thrombosis, not elsewhere classified

== ENCOUNTER → 2024-11-24 15:42 | Outpatient (BNVA) | payer MEDICARE, OTHER, SELFPAY | PROVIDERS: PCP Internal Medicine; Visit Provider Internal Medicine | DX: I10 Essential (primary) hypertension (principal); I25.10 Atherosclerotic heart disease of native coronary artery without angina pectoris; R73.01 Impaired fasting glucose; E78.00 Pure hypercholesterolemia, unspecified; I63.512 Cerebral infarction due to unspecified occlusion or stenosis of left middle cerebral artery; I51.3 Intracardiac thrombosis, not elsewhere classified | CPT/HCPCS: 99212 ==

== ENCOUNTER 2025-07-30 13:51 | Outpatient (REF) | payer MEDICARE, OTHER, SELFPAY ==
--- NOTE | ~2025-07-30 | XR_ITS ---
EXAMINATION: XR FOOT, LEFT CLINICAL INFORMATION: M79.673 - Pain in unspecified foot COMPARISON: None TECHNIQUE: AP, lateral, and oblique views of the left foot. FINDINGS: No fracture is demonstrated. No degenerative changes are identified. There is possible fusiform thickening of the distal Achilles tendon. XR/XR foot LT min 3V IMPRESSION: Possible Achilles tendinopathy/partial tear. Electronically signed by: Sunny Moses MD 07/30/2025 03:13 PM EDT
[2025-07-30 14:51] LABS: MANUAL DIFF FLAG NO
[2025-07-30 15:20] LABS: Hematocrit 41.7 % (42.0-52.0); Hemoglobin 13.4 g/dl (14.0-18.0); Imm Gran Abs Auto 0.03 X10*3/uL (0.00-0.03); Imm Gran Pct Auto 0.4 % (0.0-0.4); Lymphocytes Absolute Auto 2.3 X10*3/uL (1.2-4.9); Mean Corpuscular HGB Conc 32.1 g/dl (31.0-36.0); Mean Corpuscular Hemoglobin 29.4 pg (27.0-33.0); Mean Corpuscular Volume 91.4 fL (80.0-98.0); NRBC Abs Auto 0.000 X10*3/uL (0.0-0.012); NRBC Pct Auto 0.0 /100WBC (0.0-0.2); Platelet Count 296 X10*3/uL (160-400); Red Blood Count 4.56 X10*6/uL (4.60-5.80); White Blood Count 7.6 X10*3/uL (4.8-10.8)
[2025-07-30 16:11] LABS: Alanine Aminotransferase 33 U/L (0-40); Albumin Level 4.3 g/dL (3.5-5.0); Alkaline Phosphatase 67 U/L (39-117); Anion Gap 10 (12-20); Aspartate Amino Transferase 44 U/L (5-37); Blood Urea Nitrogen 22 mg/dL (9-16); Calcium 8.8 mg/dL (8.4-10.2); Carbon Dioxide 30 mmol/L (22-29); Chloride 109 mmol/L (96-108); Cholesterol 118 mg/dL (<200); Estimated Glomerular Filt Rate 48; HDL Cholesterol 43 mg/dL (>40); Potassium 4.6 mmol/L (3.3-5.1); Sodium 144 mmol/L (135-145); Total Protein 6.6 g/dL (6.5-8.0); Triglycerides 75 mg/dL (<150)
[2025-07-30 16:18] LABS: Free T4 (Free Thyroxine) 1.05 ng/dL (0.71-1.85); Prostate Specific Antigen 1.49 ng/mL (<0.05-4.0); Thyroid Stimulating Hormone 2.30 uIU/mL (0.32-4.0)
[2025-07-30 16:33] LABS: Folate 14.2 ng/mL (> or = 4.0); Vitamin B12 756 pg/mL (200-900)
== END 2025-07-30 13:52 | disposition home or self-care (01) ==
LOC: HO.XRAY 13:51
PROVIDERS: Absent Provider Urology; PCP Internal Medicine; Visit Provider Internal Medicine
DX: Z12.5 Encounter for screening for malignant neoplasm of prostate (principal); N40.1 Benign prostatic hyperplasia with lower urinary tract symptoms; N13.8 Other obstructive and reflux uropathy; I25.10 Atherosclerotic heart disease of native coronary artery without angina pectoris; E78.00 Pure hypercholesterolemia, unspecified; M79.672 Pain in left foot; Z79.82 Long term (current) use of aspirin; Z79.899 Other long term (current) drug therapy
CPT/HCPCS: 36415; 73630; 80053; 80061; 82607; 82746; 83036; 84153; 84439; 84443; 85025; 99212

== ENCOUNTER 2025-07-30 13:51 | Outpatient (AMB) | payer MEDICARE, OTHER, SELFPAY ==
--- NOTE | 2025-07-30 14:00 | MHC.PC.OV ---
Vital Signs 07/30/25 14:01 Height 5 ft 6 in Weight 153 lb 6 oz BMI 24.8 BP 88/46 L Blood Pressure Location Lt brachial Position Sitting Respiration 18 Pulse 68 Pulse Source Pulse Oximeter Temp 97.1 F Temp Source Temporal Artery Scan Pulse Oximetry (%) 98 Oxygen Delivery Method Room Air Intake Visit Reasons: knee swelling Financial Services Auditor Required: No Accompanied by: Self / Same As Patient Allergies No Known Allergies Allergy (Verified 07/30/25 14:02) Medication List - Last Reconciled 07/30/25 by Saran Menon MD apixaban 5 mg PO BID aspirin (Adult Aspirin Regimen) 81 mg PO DAILY atorvastatin 80 mg PO DAILY ezetimibe (Zetia) 10 mg PO DAILY 90 days finasteride 5 mg PO DAILY 90 days lisinopril 20 mg PO DAILY metoprolol succinate ER 25 mg PO DAILY mometasone 50 mcg/actuation 2 sprays intranasal BID multivitamin,tx-minerals (Multi-Vitamin HP/Minerals capsule) 1 cap PO DAILY Tobacco use date assessed: 07/30/25 Fall risk assessment: 1 Fall in past year Last assessed Fall Risk: 07/30/25 Dental Screening Dental Screen Date: 07/30/25 Did you have a dental visit in the last 12 months?: Yes Did you have a dental problem in the last 6 months where you did not have access to dental care?: No Was dental information given to patient?: Patient has dentist HPI HPI Comments History of Present Illness Details The patient is a 74-year-old male presenting with left foot pain and swelling. The foot has been bothering him for more than a week, causing him to walk more slowly during his daily two-mile walks. He first noticed swelling on Wednesday and also perceives a small knob-like area on the foot. Two weeks prior to the foot symptoms, the patient experienced severe back pain with muscle spasms, which he attributes to worn-out shoes and which resolved after about five days. He wonders if he may have unconsciously favored his other foot during that time or if the back pain masked the onset of his foot pain. He suspects a possible inciting injury from a recent rough cruise but has no specific recollection of trauma. Self-management has included rest from walking, foot elevation, ice application, and an bzas-cdt-lynffgb cream, which provided some improvement. He notes that certain pairs of shoes now feel like they are pressing on his foot, a new sensation. Past medical history is significant for blood clots, a heart attack and stroke. He takes Eliquis twice daily. He recalls a previous leg issue years ago that required leg elevation for five days. He saw a civil drafting technician a few years ago to have something scraped off his foot. [facility] Medical History COVID-19 vaccine series completed Skin cancer Annual physical exam Patent foramen ovale Mercury poisoning Cardiomyopathy Hypercholesterolemia PSA elevation Impaired fasting glucose Coronary artery disease Thrombophlebitis Surgical History H/O colonoscopy History of surgery Family History Father CHF (congestive heart failure) CAD (coronary artery disease) CVD (cardiovascular disease) Skin cancer Mother CVD (cardiovascular disease) Acute CVA (cerebrovascular accident) Paternal Grandfather Acute CVA (cerebrovascular accident) Maternal Grandfather CAD (coronary artery disease) Social History Housing: House Alcohol intake: current Comment: once a day 1 glass dinner Patient Tobacco Use Status: Never used Tobacco Tobacco use type: Cigarette e-Cigarette/Vaping Use: Never Used Second Hand Smoke Exposure: No Current occupational status: retired Cognitive needs: No Hearing needs: No Vision needs: Yes Questionnaire PHQ-9 Over the last 2 weeks, how often have you been bothered by any of the following problems? 1. Little interest or pleasure in doing things: not at all 2. Feeling down, depressed, or hopeless: not at all 3. Trouble falling or staying asleep, or sleeping too much: not at all 4. Feeling tired or having little energy: not at all 5. Poor appetite or overeating: not at all 6. Feeling bad about yourself - or that you are a failure or have let yourself or your family down: not at all 7. Trouble concentrating on things, such as reading the newspaper or watching television: not at all 8. Moving or speaking so slowly that other people could have noticed. Or the opposite - being so fidgety or restless that you have been moving around a lot more than usual: not at all 9. Thoughts that you would be better off or of hurting yourself in some way: not at all Total score: 0 Source: Developed by Drs. Cyrus Griggs, Julita Harley, Adriel Sargent and colleagues, with an educational miriam from [employer]. Thrive Questionnaire Date Thrive assessed: 07/30/25 I am a: Patient What is your living situation today?: I have a steady place to live Within the past 12 months, did the food you bought not last and you didn't have the money to get more?: Never true Within the past 12 months, did you worry whether your food would run out before you got money to buy more?: Never true Do you have trouble paying for medicines?: No Do you have trouble getting transportation to medical appointments?: No Do you have trouble paying your heating and electricity bill?: No Do you have trouble taking care of your child, family member or friend?: No Do you have trouble with day-to-day activities such as bathing, preparing meals, shopping, managing finances, etc.?: No Are you currently unemployed and looking for a job?: No Are you interested in more education?: No Please select the resources that you would like help with: None Currently or been in a relationship where the following occur: No concerns reported THRIVE Score: 0 AUDIT C Alcohol Use Questionnaire (AUDIT-C) 1. How often do you have a drink containing alcohol?: 4 or more times a week Total Score: 4 DEANNE-7 AMB Questionnaire DEANNE-7 Date DEANNE - 7 assessed: 11/24/24 Feeling nervous, anxious, or on edge: 0 = Not at all Not being able to stop or control worryin = Not at all Worrying too much about different things: 0 = Not at all Trouble relaxin = Not at all Being so restless that it is hard to sit still: 0 = Not at all Becoming easily annoyed or irritable: 0 = Not at all Feeling afraid as if something awful might happen: 0 = Not at all Total DEANNE-7 score (0-4 normal; 5-9 mild; 10-14 moderate; 15-21 severe): 0 Source: Developed by Drs. Cyrus Griggs, Julita Harley, Adriel Sargent and colleagues, with an educational miriam from [employer]. Review of Systems Const Details: Not done. Physical exam (Primary Care) Vital Signs: Last Vital Signs Temp 97.1 F 07/30/25 14:01 Pulse 68 07/30/25 14:01 Resp 18 07/30/25 14:01 BP 88/46 L 07/30/25 14:01 Pulse Ox 98 07/30/25 14:01 Oxygen Delivery Method Room Air 07/30/25 14:01 BMI result Body Mass Index 24.8 Tobacco/Smoking Status: Tobacco use Status Tobacco use date assessed 07/30/25 07/30/25 14:02 Patient Tobacco Use Status Never used Tobacco 07/30/25 14:02 Tobacco use type Cigarette 07/30/25 14:02 e-Cigarette/Vaping Use Never Used 07/30/25 14:02 PHQ-9: PHQ-9 Score PHQ-9: Total score 0 07/30/25 14:02 Thrive Assessment: Date of Thrive Assessment Date Thrive assessed 07/30/25 07/30/25 14:02 Currently or been in a relationship where the following occur: No concerns reported Const Other: Pertinent findings are in BOLD GENERAL APPEARANCE NAD, activity normal for age, well developed/ well nourished, no cyanosis, pallor, or diaphoresis. EYES lids/conjunctiva normal. EARS/NOSE/THROAT Mucous membranes moist, nares normal, lips/teeth normal uvula midline without oral pharyngeal erythema, exudate or swelling TMs normal bilaterally. No lymphangitis/lymphedema. HEAD/NECK normocephalic atraumatic, no facial trauma, neck is supple. RESPIRATORY respiratory effort normal, speaks in full sentences, no tripod position, no accessory muscle use. Lungs clear to auscultation without rhonchi, wheezes, rales CARDIAC Regular rate and rhythm, no edema. ABDOMINAL Soft, ND/NT. No evidence of fluid wave. No pulsatile masses on exam, rebound tenderness, Huitron sign or pain over Mcburney's point. MUSCLES/EXTREMITIES No abnormal range of motion, no swelling. SKIN Warm, pink and dry. No rashes, dermatoses, petechiae or lesions. NEUROLOGICAL Speech is clear and appropriate. Normal level of consciousness. Gait and coordination are normal. 5/5 strength in all extremities. PSYCH Normal mood and affect. Judgement/competence is appropriate Foot: Left foot with bump on Achilles tendon. Mildly tender. Coding Level of Care Code Est Pt Level 3 (14770) Diagnoses Foot pain, left M79.672 Time Spent (min) 20 Assessment & Plan Assessment & Plan (1) Foot pain, left: Code(s): M79.672 - Pain in left foot Category: Medical Plan: - Foot X-ray ordered to rule out a fracture. - A referral to podiatry will be placed for further assessment and management, including evaluation of footwear. - The patient is advised to keep his leg elevated. - The patient should follow up if symptoms do not improve after seeing the civil drafting technician. Plan I discussed with the patient the plan to evaluate his left foot pain and swelling. I explained that we will obtain an X-ray to rule out any underlying fracture, and I will also refer him to a civil drafting technician for a more specialized evaluation of his foot and footwear. I advised him to keep his leg elevated and informed him that he should return for follow-up if his symptoms do not improve after these interventions. I also let him know the vest front presser staff can assist with scheduling his podiatry appointment and that he can get the X-ray today. Orders: Orders XR foot LT min 3V Today M79.673 - Pain in unspecified foot Referrals Podiatry Referral M79.672 - Pain in left foot
[2025-07-30 14:01] VITALS: BP 88/46; PULSE 68; RESP 18; TEMP 36.2; O2SAT 98; BMI 24.8
--- OUTSIDE RECORDS SUMMARY | 2025-07-30 17:30 | XMS_ITS | Encounter Summary ---
Author Organization [facility] Address [facility] Electronic [facility] [address] [place] [address] Phone Care Team Providers Care Flower Buncher Or Picker Name Role Phone Douglas Díaz MD Primary Care Provider [phone] Encounter Details Date Type Department Care Team (Late st Contact Info) Description 08/12/2023 Procedure Pass [facility] [address] [place] [address] Social History Tobacco Use Types Packs/Day Years Used Date Smoking Tobacco: Never Smokeless Tobacco: Never Education Answer Date Recorded Are you interested in more education? Not on akil e 01/28/2023 Are you concerned about learning? Not on file 01/28/2023 No 01/28/2023 No 01/28/2023 Digital Access Answer Date Recorded No 02/23/2023 No 02/23/2023 Reliable internet access at home? Not on file 02/23/2023 Device with a working camera? Not on file Sex and Gender Information Value Date Recorded Sex Assigned at Male 10/01/2022 10:37 AM EST Legal Sex Male 6:11 PM EST Gender Identity Male 08/10/2024 3:56 PM EST Sexual Orientation Straight 10/01/2022 10 :37 AM EST documented as of this encounter Plan of Treatment Upcoming Encounters Date Type Department Care Team (Late st Contact Info) Description 08/23/2025 10:40 AM EST Office Visit [facility] [address] [place] [address] Fransisco Ruby MD, PhD [address] [place] [address], [address] [place] [address] [email or web address] documented as of this encounter Visit Diagnoses Not on filedocumented in this encounter Additional Health Concerns Assessment Noted Time PHQ-9 Depression Total Score: 0 08/08/20 15 10:37 AM EST PHQ-2 Depression Total Score: 0 08/14/20 21 10:51 AM EST documented as of this encounter Care Teams Flower Buncher Or Picker Relationship Specialty Start Date End Date Douglas Díaz MD [address] [place] [id number] PCP - General Internal Medicine 08/08/15 documented as of this encounter Additional Source Comments The information contained in this document represents components of the legal health record. It is not the complete legal health record.[facility]
--- OUTSIDE RECORDS SUMMARY | 2025-07-30 17:30 | XMS_ITS | Clinical Summary ---
Author Organization [facility] Address [address] [place] [address] Care Team Providers Care Bench Assembler Battery Name Role Phone Unavailable Primary Care Provider Unavailabl e Social History Tobacco Use Types Packs/Day Years Used Date Smoking Tobacco: Never Assessed Sex and Gender Information Value Date Recorded Sex Assigned at Not on file Legal Sex Male 4:14 PM EDT Gender Identity Not on file Sexual Orientation Not on file Plan of Treatment Health Maintenance Due Date Last Done Comments Advance Care Planning 1950 Hepatitis C Virus Screening 1950 DTaP/Tdap/Td Vaccines (1 - Tdap) 1968 Colonoscopy 1994 Pneumococcal Vaccines 50+ (1 of 1 - PCV) 1999 Zoster (Shingles) Vaccine (1 of 2) 1999 RSV Vaccine 50 years and old er and Patients (1 - 1-dose 75+ series) 2024 Influenza Vaccine 05/04/2025 07/18/2020 COVID-19 Vaccine ( - 2023-2 5 season) 2025 Hepatitis B Vaccines Aged Out No long er eligible based on patient's age to complete this topic Insurance MEDICARE PART A & B
--- OUTSIDE RECORDS SUMMARY | 2025-07-30 17:30 | XMS_ITS | Encounter Summary ---
Author Organization [facility] Address [facility] [employer] [facility] [address] [place] [address] Phone Care Team Providers Care Food Service Cashier Name Role Phone Douglas Díaz MD Primary Care Provider [phone] Encounter Details Date Type Department Care Team (Late st Contact Info) Description 01/12/2023 Procedure Pass [facility] [address] [place] [address] Social History Tobacco Use Types Packs/Day Years Used Date Smoking Tobacco: Never Smokeless Tobacco: Never Sex and Gender Information Value Date Recorded Sex Assigned at Male 10/01/2022 10:37 AM EST Legal Sex Male 6:11 PM EST Gender Identity Male 08/10/2024 3:56 PM EST Sexual Orientation Straight 10/01/2022 10 :37 AM EST documented as of this encounter Plan of Treatment Upcoming Encounters Date Type Department Care Team (Late Contact Info) Description 08/23/2025 10:40 AM EST Office Visit [facility] [address] [place] [address] Fransisco Ruby MD, PhD [address] [place] [address], [address] [place], [place] [id number] [email or web address] documented as of this encounter Visit Diagnoses Not on filedocumented in this encounter Additional Health Concerns Assessment Noted Time PHQ-9 Depression Total Score: 0 08/08/20 15 10:37 AM EST PHQ-2 Depression Total Score: 0 11/11/20 21 10:51 AM EST documented as of this encounter Care Teams Food Service Cashier Relationship Specialty Start Date End Date Douglas Díaz MD [address] [place] [address] PCP - General Internal Medicine 08/08/15 documented as of this encounter Additional Source Comments The information contained in this document represents components of the legal health record. It is not the complete legal health record.[facility]
--- OUTSIDE RECORDS SUMMARY | 2025-07-30 17:30 | XMS_ITS | Patient Health Record ---
Author Organization [facility] Address [address] [place] [address] Care Team Providers Care Crane Hoist Or Lift Operator Name Role Phone Po Douglas JAVED Primary Care Provider Cyrus Loredo [phone] Reason For Referral No Information Medications Medication [...] tablet Oral ly Once a day Active Immunizations Vaccine Route Administration Date Status Comme nts Influenza Unknown 06/04/2021 Administered Problems Problem Type SNOMED Code ICD Code Onset Dates Problem Status W/U Status Risk Notes Problem Screening for malignant neoplasm of colon (837371292) Encounter for screening for malignant neoplasm of colon (Z12.11) Active confirmed Problem Screening for malignant neoplasm of rectum (280729534) Encounter for screening for malignant neoplasm of rectum (Z12.12) Active confirmed Problem Preprocedural examination (653764775542122) Preprocedural examination (Z01.818) Active confirmed Problem Long-term current use of antiplatelet drug (246746626196472) Long-term use of aspirin therapy (Z79.82) Active confirmed Problem Diverticulosis of colon (172948999) Diverticulosis of colon (K57.30) Active confirmed Plan Of Treatment Pending Test Test Name Order Date Pathology 03/04/2022 Future Test Test Name Order Date COLONOSCOPY 10/14/2016 COLONOSCOPY 01/15/2022 Insurance Providers Payer Name Payer Address Payer Phone Subscriber Number Group Number Insured Name Patient Relationship to Insured Coverage Start Date Coverage End Date MEDICARE OF [place] [address] [place] [address] [id number] JACQUI GODOY Self - patient is the insured [facility] [address] [place] [address] [id number] JACQUI GODOY Self - patient is the insured Medical (General) History Medical History History ICD Code CT 01/24/2007--he describes t hat his cardiac catheterization [...] the septal defect closed angiographically by an human resources records clerk at [facility] in [place] Denies DM,CVA,Lung disease,renal disease Hyperlipidemia Negative screening colonosco py in 2005, other than internal hemorrhoids, with Dr. 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
--- OUTSIDE RECORDS SUMMARY | 2025-07-30 17:30 | XMS_ITS | Clinical Summary ---
Author Organization [facility] Address [address] [place] [address] Phone Care Team Providers Care Cutter And Edge Trimmer Name Role Phone Douglas Díaz MD Primary Care Provider [phone] Allergies No known active allergies Medications atorvastatin (LIPITOR) 80 MG tablet Dose: Not available; Form: Take 1 Tablet(s); Route: PO; Frequency: QD; Directions: Not available; Details: Dispense: Tablet(s); Status: Active; Source: NIR BARBA M.D.,P H.D.; Date: 03/17/2007 03/17/2007 Active aspirin 81 mg chewable tablet Dose: 81 MG; Form: Take 1 TABLET; Route: PO; Frequency: QD; Directions: Not available; Details: Dispense: Tablet(s); Status: Active; Source: NIR BARBA M.D.,P H.D.; Date: 03/17/2007 03/17/2007 Active MULTIVITAMIN ORAL Take by mouth. Active lisinopril (PRINIVIL,ZESTRI L) 10 MG tablet TAKE 1 TABLET EVERY DAY 06/01/2019 Active metoprolol succinate (TOPROL-XL) 25 MG 24 hr tablet TAKE 1 TABLET BY MOUTH EVERY DAY 06/02/2019 Active finasteride (PROSCAR) 5 mg tablet Take 5 mg by mouth daily. 08/28/2022 Active ezetimibe-rosuva statin 10-10 mg Tab Take 1 tablet by mouth daily. 09/14/2022 Active mometasone (NASONEX) 50 mcg/actuation nasal spray 1 drop by Nasal route daily. 09/28/2022 Active apixaban (ELIQUIS) 5 mg tablet Take 5 mg by mouth 2 (two) times a day. Active psyllium (METAMUCIL) 0.52 gram capsule Take 0.52 g by mouth daily. 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 Hypertension 08/06/2016 Raynaud's phenomenon 08/17/2013 Overview (11/24/2014): Raynaud's phenomenon Patent foramen ovale 09/17/2011 Overview (11/24/2014): Patent foramen ovale Cellulitis 09/17/2011 Overview (11/24/2014): Cellulitis Arteriosclerotic heart disease 03/17/2007 Overview (11/24/2014): Coronary artery disease Uncoded s/p coronary embolism 03/17/2007 Overview (11/24/2014): s/p coronary embolism Hyperlipidemia 03/17/2007 Overview (11/24/2014): Hyperlipidemia Myocardial infarction greater than 8 weeks ago 0 03/17/2007 Overview (11/24/2014): S/P myocardial infarction Hypercoagulable state 03/17/2007 Overview (11/24/2014): Hypercoagulable state Immunizations Immunization Administration Dates Next Due Influenza, Unspecified Formulation 08/18(Deferred: Other - pt already received flu shot) Pneumococcal polysaccharide PPSV23 08/19,04/21/2007(Deferred: Other - , Ordered By: [id number]) Social History Tobacco Use Types Packs/Day Years Used Date Smoking Tobacco: Never Smokeless Tobacco: Never Tobacco Cessation:Counseling Given: Not Answered Education Answer Date Recorded Are you interested [...] Orientation Straight 10/01/2022 10 :37 AM EST Last Filed Vital Signs Vital Sign Reading Time Taken Comments Blood Pressure 120/62 08/29/2024 11:06 AM EST Pulse 50 08/29/2024 11:06 AM EST Temperature 36.6 C (97.9 F) 08/22/2020 10:51 AM EST Respiratory Rate - - Oxygen Saturation 100% 08/29/2024 11:06 AM EST Inhaled Oxygen Concentration - - Weight 72.6 kg (160 lb) 08/29/2024 11:06 AM EST Height 167.6 cm (5' 6 ) 07/06/2024 6:26 PM EDT Body Mass Index 25.82 07/06/2024 6:26 PM EDT Plan of Treatment Upcoming Encounters Date Type Department Care Team (Late st Contact Info) Description 08/23/2025 10:40 AM EST Office Visit [facility] [address] [place] [address] Fransisco Barba MD, PhD [address] [place] [address], [address] [place] [address] [email or web address] Due Date Last Done Comments CREATININE LEVEL 1950 POTASSIUM LEVEL 1950 HEPATITIS C SCREENING 1967 COLOGUARD 1994 COLONOSCOPY 1994 COLORECTAL CANCER SCREENING 1994 FIT TEST 1994 FOBT 1994 SIGMOIDOSCOPY 1994 VIRTUAL COLONOSCOPY 1994 PNEUMOCOCCAL VACCINES (50+ years) (3 of 3 - PCV20 or PCV21) 07/29/2022 07/29/2017, 07/13/2017, 08/19/2007 DEPRESSION SCREENING 08/14/2022 08/14/2021, 08/08/20 15 BLOOD PRESSURE 02/26/2025 08/29/2024 INFLUENZA VACCINE (#1) 2025 , 07/08/2023, 07/08/2023, Additional history exists COVID-19 VACCINE ( season) 2025 05/31/2024, 01/08/2024, 06/25/2023, Additional history exists Adult Td,Tdap Booster 07/07/2026 07/07/2016, 009 HEPATITIS A VACCINES Aged Out 12/17/2009, 07/03/2009, 06/03/2009 No longer eligible based on patient's age to complete this topic ZOSTER VACCINES Completed 06/28/2019, 05/04, 03/19/2019, Additional history exists RSV VACCINE Completed 05/27/2023 SMOKING STATUS SCREENING (Once After 26 Yrs) Completed 08/29/2024 HIB VACCINES Aged Out No longer eligi ble based on patient's age to complete this topic MENINGOCOCCAL VACCINES (ACWY) Aged Out No longer eligible based on patient's age to complete this topic MENINGOCOCCAL VACCINES (B) Aged Out N o longer eligible based on patient's age to complete this topic Medical Devices Not on file Insurance [employer] [facility] MEDICARE SUPPLEMENT MEDICARE PART A & B [employer] MEDICARE SUPPLEMENT MEDICARE PART A & B [employer] [facility] [employer] MEDICARE SUPPLEMENT MEDICARE PART A & B [employer] MEDICARE SUPPLEMENT MEDICARE PART A & B [employer] MEDICARE SUPPLEMENT MEDICARE PART A & B EXT[employer] MEDICARE SUPPLEMENT MEDICARE PART A & B EXT[employer] MEDICARE SUPPLEMENT MEDICARE PART A & B EXTENSION MEDICARE SUPPLEMENT MEDICARE PART A & B [facility] EXTENSION MEDICARE SUPPLEMENT MEDICARE PART A & B Care Teams Cutter And Edge Trimmer Relationship Specialty Start Date End Date Douglas Díaz MD [address] [place] [address] Drive [address] [place] [address] PCP - General Internal Medicine 08/08/15 Additional Source Comments The information contained in this document represents components of the legal health record. It is not the complete legal health record.[facility]
--- OUTSIDE RECORDS SUMMARY | 2025-07-30 17:30 | XMS_ITS | Encounter Summary ---
Author Organization [facility] Address [facility] [address] [place] [address] Phone Care Team Providers Care Wet Machine Cutter Name Role Phone Douglas Díaz MD Primary Care Provider [phone] Encounter Details Date Type Department Care Team (Late st Contact Info) Description 09/11/2015 Transcribe Orders [facility] [address] [place] [address] Ghazal Antoine [address] [place] [id number] [email or web address] Social History Tobacco Use Types Packs/Day Years Used Date Smoking Tobacco: Never Sex and Gender Information Value [...] Description 08/23/2025 10:40 AM EST Office Visit [facility] [address] [place] [address] Fransisco Ruby MD, PhD 75 [facility] 1, [address] [place] [address] [email or web address] documented as of this encounter Results * US Vascular Outside (No Interpretation) (09/12/2015 10:20 AM EST) Narrative SYSTEMGENERATED, DOCUMENTATION - 09/12/2015 10:18 AM EST This study is for PACS storage only and not for interpretation. Emir Lund MD CV US VASCULAR Final Res ult * US Vascular Outside (No Interpretation) (09/11/2015 3:55 PM EST) Narrative SYSTEMGENERATED, DOCUMENTATION - 09/11/2015 3:52 PM EST This study is for PACS storage only and not for interpretation. Emir Lund MD CV US VASCULAR Final Res ult * US Vascular Outside (No Interpretation) (09/11/2015 3:30 PM EST) Narrative SYSTEMGENERATED, DOCUMENTATION - 09/11/2015 3:28 PM EST This study is for PACS storage only and not for interpretation. Emir Lund MD CV US VASCULAR Final Res ult documented in this encounter Visit Diagnoses Not on filedocumented in this encounter Additional Health Concerns Assessment Noted Time PHQ-9 Depression Total Score: 0 08/08/20 15 10:37 AM EST PHQ-2 Depression Total Score: 0 08/08/20 15 10:37 AM EST documented as of this encounter Care Teams Wet Machine Cutter Relationship Specialty Start Date End Date Douglas Díaz MD [address] [place] [address] [place] [phone] PCP - General Internal Medicine 08/08/15 documented as of this encounter Additional Source Comments The information contained in this document represents components of the legal health record. It is not the complete legal health record.[facility]
--- OUTSIDE RECORDS SUMMARY | 2025-07-30 17:30 | XMS_ITS | Encounter Summary ---
Author Organization [facility] Address [address] [place] [address] [place] [phone] Phone Care Team Providers Care Rover Tender Name Role Phone Douglas Díaz MD Primary Care Provider [phone] Encounter Details Date Type Department Care Team (Latest Contact Info) Description 09/12/2015 Transcribe Orders [facility] Nuclear Medicine [address] [place] [address] Maryellen Perdomo [address] [phone] [email or web address] Atrial septal defect (Primary Dx) Social History Tobacco Use Types Packs/Day Years [...] Description 08/23/2025 10:40 AM EST Office Visit [facility] [address] [place] [address] Fransisco Ruby MD, PhD 75 [facility] 1, [address] [place], [place] [id number] [email or web address] documented as of this encounter Results * TTE COMPREHENSIVE W/ AGITATED SALINE (10/10/2015 12:20 PM EST) Ejection Fraction 50.00 50 - 75 % Left Ventricular Mass 204.55 g Left Ventricle indexed to BSA 114.27 g/mL Relative Wall Thickness 0.40 0.22 - 0.42 Left Ventricle E Wave Speed 49.90 cm/s Left Ventricle A Wave Speed 78.50 cm/s Left Ventricle Ea Septal Wave Speed cm/s Echo E/Ea Left Ventricle Ea Lateral Wave Speed cm/s Raw LV EF% % Left Ventricular Apical Contribution Mitral Valve Deceleration Time ms Left Ventricle Diastolic Volume 59.00 mL Left Ventricle Diastolic Volume Index 32.96 mL/m2 Left Ventricle Systolic Volume 29.00 mL Left Ventricle Systolic Volume Index 16.20 mL/m2 Left Ventricular Outflow Tract Velocity m/s Left Ventricular Outflow Tract Gradient at Rest mmHg Left Ventricle Mid Gradient mmHg Left Ventricular Outflow Tract Gradient at Valsalva mmHg Left Ventricle Internal Diameter End Diastole 45.00 42 - 58 mm Left Ventricle Internal Diameter End Systole 34.00 25.0 - 39.8 mm Interventricular Septum Thickness 1.60 cm Left Ventricular Posterior Wall Thickness 0.90 cm Pulmonary Artery Pressure mmHg Right Ventricle Estimated PA Pressure 26.16 mmHg Inferior Vena Cava Diameter 0.0 - 2.1 cm Right Ventricular Outflow Tract Stroke Volume cm3 Right Ventricle TAPSE 17 - 31 mm Right Ventricle Tricuspid Anular Systolic Motion (S') cm/s Right Ventricle Ejection Fraction 3D Equation 45 - 71 % Right Ventricle Basal Diameter 25 - 41 mm Right Ventricle Mid Diameter 19 - 35 mm Right Ventricle Longitudinal Diameter 59 - 83 mm Right Ventricular Outflow Tract PLAX Diameter 20 - 30 mm Right Ventricular Outflow Tract Proximal Diameter 21 - 35 mm Right Ventricular Outflow Tract Distal Diameter 17 - 27 mm Right Ventricle Wall Thickness Max 1 - 5 mm Right Ventricle Pulse Doppler S Wave 9.5 - 18.7 cm/s Right Ventricle Color Doppler S Wave 6 - 13.4 cm/s Right Ventricle Fractional Area Change (FAC) Right Ventricle Free Wall 2D Strain -20 - -38 % Right Ventricle Pulse Doppler MPI 0.09 - 0.43 Right Ventricle Tissue Doppler MPI 0.22 - 0.54 Left Atrium Dimension Anterior-Posterior 33.00 mm Left Atrium Dimension Superior-Inferior 2.9 - 5.3 cm Left Atrium Dimension Medial-Lateral 2.9 - 4.9 cm Left Atrial Appendage Velocity cm/s Left Atrial Volume mL Left Atrial Volume Index mL/m2 Pulmonary Vein S/D Ratio Pulmonary Venous Atrial Reverse Wave Duration msec Pulmonary Peak Systolic Velocity m/s Pulmonary Peak Diastolic Velocity m/s Right Atrium Dimension Superior-Inferior mm Right Atrium Dimension Medial-Lateral mm Mitral Valve Total Score Mitral Valve Mobility Score Mitral Valve Calcification Score Mitral Valve Thickening Score Mitral Valve Subvalvular Score Mitral Valve Peak Gradient mmHg Mitral Valve Mean Gradient mmHg Mitral Valve Gradient HR bpm Mitral Valve Gradient Cardiac Output L/min Mitral Valve Area Planimetry Equation cm2 Mitral Valve Area Pressure Half Time Eq cm2 Mitral Valve Area Continuity Equation cm2 Mitral Valve Area PISA Equation cm2 Mitral Valve Vnyquist m/s Mitral Valve Area cm2 Mitral Valve PISA Angle Correction deg Mitral Valve Regurgitant Fraction % Mitral Valve Jet Area Ratio Mitral Valve Vena Contracta cm Mitral Valve EROA cm2 Mitral Valve PISA Radius cm Mitral Valve Aliasing Velocity cm/s Mitral Valve Peak Velocity cm/s Mitral Valve Regurgitation Time Volume Integral cm Mitral Valve EROA 3D Equation cm2 Mitral Valve Regurgitant Volume PISA Equation ml Mitral Valve Regurgitant Volume Doppler ml Mitral Valve C-SEPT Mitral Valve Coaptation Length cm Mitral Valve Tenting Area cm2 Mitral Valve Tenting Volume ml Mitral Valve Anterior Leaflet Length cm Mitral Valve Anterior Leaflet Area cm2 Mitral Valve Posterior Leaflet Length cm Mitral Valve Posterior Leaflet Area cm2 Mitral Valve Anterior/Posterior Ratio Mitral Valve Annular Diameter AP Diastolic cm Mitral Valve Annular Diameter AP Systolic cm Mitral Valve Annular Diameter Commissural Diastolic cm Mitral Valve Annular Diameter Commissural Systolic cm Mitral Valve Annular Area Systolic cm2 Mitral Valve Annular Perimiter Systolic cm Aorta Mitral Angle deg Mitral Valve Annular Area Diastolic cm2 Mitral Valve Annular Perimiter Diastolic cm Mitral Valve Intertrigonal Distance Systolic cm Mitral Valve Intertrigonal Distance Diastolic cm Pulmonary Artery Systolic Pressure Estimated 16.16 mmHg Right Atrium Pressure Estimated mmHg Tricuspid Valve Peak Velocity 2.01 m/s Right Ventricle to Right Atrium Pressure Gradient mmHg Tricuspid Valve Pressure Half Time Equation cm2 Tricuspid Valve Peak Gradient 16.00 mmhg Tricuspid Valve Mean Gradient mmHg Tricuspid Valve Annulus Area cm2 Tricuspid Valve Annulus Dimension Anterior-Posterior cm Tricuspid Valve Annulus Dimension Medial Lateral cm Tricuspid Valve Anterior Leaflet Area cm2 Tricuspid Valve Posterior Leaflet Area cm2 Tricuspid Valve Septal Leaflet Area cm2 Tricuspid Valve Deceleration Time ms Tricuspid Valve E Wave Velocity Max cm/s Right Ventricle Peak Systolic Pressure 26.16 mmHg Tricuspid Valve Vena Contracta cm Tricuspid Valve Regurgitant Volume ml Tricuspid Valve Regurgitant Volume Fraction % Tricuspid Valve Vnyquist m/s Tricuspid Valve PISA Radius cm Tricuspid Valve EROA PISA Equation cm2 Aortic Valve Peak Gradient mmHg Aortic Valve Mean Gradient mmHg [id number] mmHg LVOT Gradient Mid Ventricle Peak Valsalva mmHg Left Ventricular Outflow Tract Diameter cm Aortic Valve Area cm2 Aortic Valve Area Index cm2/m2 Aortic Valve Annulus Dimension 1 2.0 - 3.2 cm Aortic Sinus Diameter cm Sinotubular Junction Diameter 2.3 - 3.5 cm Ascending Aorta Diameter 3.40 cm Aortic Arch Diameter cm Aortic Isthmus Diameter cm Aortic Valve Aliasing Velocity cm/s Sinus of Valsalva Index 1.3 - 2.1 cm/m2 Proximal Ascending Aorta Index 1.1 - 1.9 cm/m2 Aortic Valve Regurgitant Volume ml Aortic Valve Regurgitant Fraction % Aortic Valve Regurgitation Pressure Half Time ms Aortic Valve Vena Contracta cm Aortic Valve Vnyquist m/s Aortic Valve PISA Radius cm Aortic Regurgitation Max Velocity m/s Aortic Valve EROA cm2 Aortic Valve Deceleration Time ms Aortic Valve Jet Height to Left Vent Outflow Tract Descending Aorta Diameter cm Aortic Valve Regurgitation Time Volume Integral cm Aortic Valve Peak Diastolic Velocity cm/s Aortic Valve Annulus Area cm2 Aortic Valve Annulus Dimension 2 cm Aortic Valve Annulus Perimeter cm Aortic Valve Mean Diameter cm Aortic Valve Distance to Coronary [place] (LM) cm Aortic Valve Distance to Coronary [place] (RCA) cm Aortic Valve Left Coronary Leaflet Length cm Aortic Valve Right Coronary Leaflet Length cm Aortic Valve Peak Velocity cm/s Pulmonary Valve Peak Gradient mmHg Pulmonary Valve Mean Gradient mmHg Pulmonary Valve Peak Velocity m/s Pulmonary Valve Area cm2 Right Ventricular Outflow Tract Gradient mmHg Right Ventricular Outflow Tract Peak Velocity m/s Pulmonary Valve Annulus Dimension mm Pulmonary Artery Main - Dimension mm Pulmonary Artery Right - Dimension mm Pulmonary Artery Left - Dimension mm Right Ventricular Outflow Tract Pressure mmHg Pulmonary Artery Acceleration Time msec Pulmoary Artery Deceleration Time msec Pulmonary Artery End Diastolic Pressure mmHg Pulmonary Valve Pressure Half Time ms Patent Ductus Arteriosus Dimension mm Right Ventricular Outflow Tract Velocity Time Integral cm Pericardium Effusion Dimension 1 cm Pericardium Effusion Dimension 2 cm Pericardium Effusion Dimension 3 cm Body Surface Area 1.79 m2 Height 167.64 cm Weight 70.31 kg Systolic BP 112.00 mmHg Diastolic BP 58.00 mmHg Wall Thickness Max cm Left Ventricle Aneurysm Dimension 1 cm Left Ventricle Aneurysm Dimension 2 cm Left Ventricle Aneurysm Dimension 3 cm Left Ventricle Pseudoaneurysm Dimension 1 cm Left Ventricle Pseudoaneurysm Dimension 2 cm Left Ventricle Pseudoaneurysm Dimension 3 cm Left Ventricle Thrombus Dimension 1 cm Left Ventricle Thrombus Dimension 2 cm Left Ventricle Thrombus Dimension 3 cm Left Ventricle Mass Dimension 1 cm Left Ventricle Mass Dimension 2 cm Left Ventricle Mass Dimension 3 cm Right Ventricle Linear Dimension cm Right Ventricle Thrombus Dimension 1 cm Right Ventricle Thrombus Dimension 2 cm Right Ventricle Thrombus Dimension 3 cm Ventricular Septal Defect Dimension mm Ventricular Septal Defect Dimension 2 cm Conoventricular Ventricular Septal Defect Dimension 1 mm Conoventricular Ventricular Septal Defect Dimension 2 mm Membranous Ventricular Septal Defect Dimension 1 mm Membranous Ventricular Septal Defect Dimension 2 mm Muscular Ventricular Septal Defect Dimension 1 mm Muscular Ventricular Septal Defect Dimension 2 mm Canal Type Ventricular Septal Defect Dimension 1 mm Canal Type Ventricular Septal Defect Dimension 2 mm Intraconal Ventricular Septal Defect Dimension 1 mm Intraconal Ventricular Septal Defect Dimension 2 mm Post Infarction Ventricular Septal Defect Dimension 1 mm Post Infarction Ventricular Septal Defect Dimension 2 mm Ventricular Septal Defect Peak Velocity Ventricular Septal Defect Gradient mmHg Post Operative Ventricular Septal Defect Dimension 1 mm Post Operative Ventricular Septal Defect Dimension 2 mm Echo Qp/Qs Ratio Mechanical Assist RPM 1 RPM Aortic Valve Distance to Cannula Tip cm Cannula Left Ventricle Inflow Velocity m/s Cannula Left Ventricle Outflow Velocity m/s Cannula Right Ventricle Inflow Velocity m/s Cannula Right Ventricle Outflow Velocity m/s RPM1 Tricuspid Regurgitation Velocity Max m/s RPM1 Right Ventricle Systolic Pressure mmHg RPM1 Left Ventricular Outflow Tract Velocity Time Integral cm RPM1 Mitral Valve Deceleration Time ms RPM1 Left Ventricle Inner Diameter End Diastolic mm RPM1 Left Ventricle Inner Diameter End Systolic mm RPM1 Left Ventricle End Diastolic Velocity m/s RPM1 Left Ventricle End Systolic Velocity m/s Mechanical Assist RPM 2 RPM RPM2 Left Ventricle Inner Diameter End Diastolic mm RPM2 Left Ventricle Inner Diameter End Systolic mm RPM2 Left Ventricle End Diastolic Velocity m/s RPM2 Left Ventricle End Systolic Velocity m/s RPM2 Tricuspid Regurgitation Velocity Max m/s RPM2 Right Ventricle Systolic Pressure mmHg RPM2 Left Ventricular Outflow Tract Velocity Time Integral cm RPM2 Mitral Valve Deceleration Time ms Mechanical Assist RPM 3 RPM RPM3 Left Ventricle Inner Diameter End Diastolic mm RPM3 Left Ventricle Inner Diameter End Systolic mm RPM3 Left Ventricle End Diastolic Velocity m/s RPM3 Left Ventricle End Systolic Velocity m/s RPM3 Tricuspid Regurgitation Velocity Max m/s RPM3 Right Ventricle Systolic Pressure mmHg RPM3 Left Ventricular Outflow Tract Velocity Time Integral cm RPM3 Mitral Valve Deceleration Time ms Mechanical Assist RPM 4 RPM RPM4 Left Ventricle Inner Diameter End Diastolic mm RPM4 Left Ventricle Inner Diameter End Systolic mm RPM4 Left Ventricle End Diastolic Velocity m/s RPM4 Left Ventricle End Systolic Velocity m/s RPM4 Tricuspid Regurgitation Velocity Max m/s RPM4 Right Ventricle Systolic Pressure mmHg RPM4 Left Ventricular Outflow Tract Velocity Time Integral cm RPM4 Mitral Valve Deceleration Time ms Mechanical Assist RPM 5 RPM RPM5 Left Ventricle Inner Diameter End Diastolic mm RPM5 Left Ventricle Inner Diameter End Systolic mm RPM5 Left Ventricle End Diastolic Velocity m/s RPM5 Left Ventricle End Systolic Velocity m/s RPM5 Tricuspid Regurgitation Velocity Max m/s RPM5 Right Ventricle Systolic Pressure mmHg RPM5 Left Ventricular Outflow Tract Velocity Time Integral cm RPM5 Mitral Valve Deceleration Time ms Mechanical Assist RPM 6 RPM RPM6 Left Ventricle Inner Diameter End Diastolic mm RPM6 Left Ventricle Inner Diameter End Systolic mm RPM6 Left Ventricle End Diastolic Velocity m/s RPM6 Left Ventricle End Systolic Velocity m/s RPM6 Tricuspid Regurgitation Velocity Max m/s RPM6 Right Ventricle Systolic Pressure mmHg RPM6 Left Ventricular Outflow Tract Velocity Time Integral cm RPM6 Mitral Valve Deceleration Time ms RAMP Study Optimal Setting Value Left Atrium Thrombus Dimension 1 cm Left Atrium Thrombus Dimension 2 cm Left Atrium Thrombus Dimension 3 cm Left Atrium Mass Dimension 1 cm Left Atrium Mass Dimension 2 cm Left Atrium Mass Dimension 3 cm Pulmonary Veins Peak Doppler Velocity m/s Pulmonary Veins Peak Gradient mmHg Pulmonary Veins Mean Gradient mmHg Right Atrium Thrombus Dimension 1 cm Right Atrium Thrombus Dimension 2 cm Right Atrium Thrombus Dimension 3 cm Right Atrium Mass Dimension 1 cm Right Atrium Mass Dimension 2 cm Right Atrium Mass Dimension 3 cm Atrial Septal Defect Dimension 1 cm Atrial Septal Defect Dimension 2 cm Atrial Septal Defect Area cm2 Interatrial Septum PFO Diameter mm Interatrial Septum PFO Tunnel Length cm Interatrial Septum Maximum Excursion mm Atrial Septal Defect Gradient mmHg Aortic Valve Time Velocity Integral cm Left Ventricular Outflow Tract Stroke Volume mL Left Ventricular Outflow Tract Stroke Volume Index mL/m2 LVOT VTI REST cm Left Ventricular Outflow Tract Cross Sectional Area cm2 Aortic Valve Dimensionless Index Aortic Valve Vegetation Dimension 1 cm Aortic Valve Vegetation Dimension 2 cm Aortic Valve Vegetation Dimension 3 cm Aortic Valve Abscess Dimension 1 cm Aortic Valve Abscess Dimension 2 cm Aortic Valve Abscess Dimension 3 cm Aortic Valve Mass Dimension 1 cm Aortic Valve Mass Dimension 2 cm Aortic Valve Mass Dimension 3 cm Aortic Valve Prosthetic Peak Gradient mmHg Aortic Valve Prosthetic Mean Gradient mmHg Aortic Valve Coaptation Length cm Aortic Valve Graft Diameter cm Aortic Valve Coarctation Velocity Peak m/s Aortic Valve Coarctation Peak mmHg Aortic Valve Coarctation Mean mmHg Left Ventricular Outflow Tract Gradient Peak Dobutamine mmHg Mitral Valve Peak Gradient at A Wave mmHg Mitral Valve Vegetation Size Anterior 1 cm Mitral Valve Vegetation Size Anterior 2 cm Mitral Valve Vegetation Size Anterior 3 cm Mitral Valve Vegetation Size Posterior 1 cm Mitral Valve Vegetation Size Posterior 2 cm Mitral Valve Vegetation Size Posterior 3 cm Mitral Valve Annular Diameter AP mm Mitral Valve Annular Diameter ML mm Mitral Valve Prosthetic Peak Gradient mmHg Mitral Valve Prosthetic Mean Gradient mmHg Tricuspid Valve Vegetation Dimension 1 cm Tricuspid Valve Vegetation Dimension 2 cm Tricuspid Valve Vegetation Dimension 3 cm Tricuspid Valve Mass Dimension 1 cm Tricuspid Valve Mass Dimension 2 cm Tricuspid Valve Mass Dimension 3 cm Tricuspid Valve Annulus Dimension 1 cm Tricuspid Valve Annulus Dimension 2 cm Tricuspid Valve Annulus Dimension 3 cm Tricuspid Valve Prosthetic Peak Gradient mmHg Tricuspid Valve Prosthetic Mean Gradient mmHg Pulmonary Valve Vegetation Dimension 1 cm Pulmonary Valve Vegetation Dimension 2 cm Pulmonary Valve Vegetation Dimension 3 cm Pulmonary Valve Mass Dimension 1 cm Pulmonary Valve Mass Dimension 2 cm Pulmonic Valve Prosthetic Peak Gradient mmHg Pulmonic Valve Prosthetic Mean Gradient mmHg Proximal Left Coronary Artery Dimension mm Proximal Right Coronary Artery Dimension mm Pericardium Extracardiac Mass Dimension 1 cm Pericardium Extracardiac Mass Dimension 2 cm Dyssynchrony IVMD Patient Value ms Dyssynchrony IVMD After Optimization ms Dyssynchrony LVPEI Patient Value ms Dyssynchrony LVPEI After Optimization ms Dyssynchrony LVFT/RR Patient Value % Dyssynchrony LVFT/RR After Optimization % Dyssynchrony OPWD Patient Value ms Dyssynchrony OPWD After Optimization ms Dyssynchrony MTD Patient Value ms Dyssynchrony MTD After Optimization ms Dyssynchrony Ts-DS Patient Value ms Dyssynchrony Ts-DS After Optimization ms Dyssynchrony Speckle Strain Patient Value ms Dyssynchrony Speckle Strain After Optimization ms Dyssynchrony Tm_SV Patient Value ms Dyssynchrony Tm_SV After Optimization ms Dyssychrony VVI AF Sensed AV Delay ms Dyssynchrony VVI AF Paced AV Delay ms Dyssynchrony VVI AF VV Offset ms Dyssychrony AV Optimization Sensed AV Delay ms Dyssychrony AV Optimization Paced AV Delay ms Dyssychrony AV Optimization Unchanged (time) ms Dyssychrony VV Optimization Optimized Setting ms Dyssychrony VV Optimization Unchanged (time) ms Anatomical Region Laterality Modality Heart ECH Narrative 10/10/2015 12:45 PM EST The ejection fraction is 50% (Normal 50-75%). The left ventricular ejection fraction was measured by visual estimate. There are segmental left ventricular wall motion abnormalities present (see wall motion plot). 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 The right ventricular systolic function is normal There is no evidence of patent foramen ovale by agitated saline contrast at rest and with Valsalva maneurver. There is evidence of mild pulmonary regurgitation by color and spectral Doppler. Compared to prior study from 08/19/2007, The akinetic/dyskinetic apical segment is old and stable. Previously noted late bubbles following contrast injection are not seen on the current study. Left Ventricle The left ventricular cavity size is normal. There is mild concentric left ventricular hypertrophy. The ejection fraction is 50% (Normal 50-75%). The left ventricular ejection fraction was measured by visual estimate. There are segmental left ventricular wall motion abnormalities present (see wall motion plot). 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 Left ventricular diastolic function appears within normal limits for age. Right Ventricle The right ventricular size is normal. The right ventricular systolic function is normal. Left Atrium The left atrium is normal in size. Right Atrium The right atrium is normal in size. The IVC is normal in size (2.1cm or less). The IVC demonstrates normal collapse with inspiration. Mitral Valve There is no evidence of mitral stenosis. There is diffuse mild increased mitral valve leaflet thickening. There is trace to mild mitral regurgitation detected by spectral and color Doppler. Tricuspid Valve There is no evidence of tricuspid stenosis. Leaflet thickness is normal. There is color and spectral Doppler evidence of trace tricuspid regurgitation. The peak detected tricuspid regurgitation velocity is 2.01 m/s, consistent with an estimated pulmonary artery systolic pressure of 16.16 mmHg plus right atrial pressure. Aortic Valve The aortic valve is tricuspid. There is mild thickening of multiple aortic leaflets. There is no evidence of valvular aortic stenosis. There is no evidence of aortic regurgitation by color and spectral Doppler. Pulmonic Valve The pulmonary valve appears normal. There is no evidence of pulmonary stenosis. There is evidence of mild pulmonary regurgitation by color and spectral Doppler. Pericardium There is no evidence of pericardial effusion. Interatrial Septum There is no evidence of patent foramen ovale by agitated saline contrast at rest and with Valsalva maneurver. Interventricular Septum Interventricular septal motion appears normal. General Findings The image quality was average. Comparison Findings Compared to prior study from 08/19/2007, The akinetic/dyskinetic apical segment is old and stable. Previously noted late bubbles following contrast injection are not seen on the current study. Wall Scoring Score Index: 3.000 Percent Normal: 0.0% The following segments are akinetic: apical septal, apical lateral and apex. Other segments could not be evaluated. us Fransisco Ruby MD, PhD CV ECHO ORDERABLES Final Result documented in this encounter Visit Diagnoses Diagnosis Atrial septal defect- Primary Ostium secundum type atrial septal defect Atrial septal defect Ostium secundum type atrial septal defect documented in this encounter Additional Health Concerns Assessment Noted Time PHQ-9 Depression Total Score: 0 08/08/20 15 10:37 AM EST PHQ-2 Depression Total Score: 0 08/08/20 10:37 AM EST documented as of this encounter Care Teams Rover Tender Relationship Specialty Start Date End Date Arjun, Douglas Hines MD [address] [place] [address] [place] [phone] PCP - General Internal Medicine 08/08/15 documented as of this encounter Additional Source Comments The information contained in this document represents components of the legal health record. It is not the complete legal health record.[facility]
--- OUTSIDE RECORDS SUMMARY | 2025-07-30 17:30 | XMS_ITS | Encounter Summary ---
Author Organization [facility] Address [address] [place] [address] Phone Care Team Providers Care Outside Sales Name Role Phone Douglas Díaz MD Primary Care Provider [phone] Encounter Details Date Type Department Care Team (Late Contact Info) Description 10/13/[address] [facility] [address] [place] [address] Fransisco Ruby MD, PhD [address] [place] [address], [address] [place] [address] [email or web address] Social History Tobacco Use Types Packs/Day Years [...] Description 08/23/2025 10:40 AM EST Office Visit [facility] [address] [place] [address] Fransisco Ruby MD, PhD [address] [place] [address], [address] [place] [address] [email or web address] documented as of this encounter Visit Diagnoses Not on filedocumented in this encounter Additional Health Concerns Assessment Noted Time PHQ-9 Depression Total Score: 0 08/08/20 10:37 AM EST PHQ-2 Depression Total Score: 0 08/08/20 10:37 AM EST documented as of this encounter Care Teams Outside Sales Relationship Specialty Start Date End Date Douglas Díaz MD [address] [place] [address] [address] [place] [address] PCP - General Internal Medicine 08/08/15 documented as of this encounter Additional Source Comments The information contained in this document represents components of the legal health record. It is not the complete legal health record.[facility]
--- OUTSIDE RECORDS SUMMARY | 2025-07-30 17:30 | XMS_ITS | Encounter Summary ---
Author Organization [facility] Address [address] [id number] Care Team Providers Care Parts Casting Machine Operator Name Role Phone Unavailable Primary Care Provider Unavailabl e Encounter Details Date Type Department Care Team (Latest Contact Info) Description 01/04/2021 Lab Requisition [facility] [address] Through [address] [place] [address] [address] [place] [address] Kemar Melendez MD [address] [place] [address] Encounter for laboratory testing for [...] Name Priority Date/Time Associated Diagnosis Comments COVID-19 (SARS-COV-2) DWAYNE Routine 01/04/2021 9:31 AM EDT Encounter for laboratory testing for COVID-19 virus [ICD-10-CM] documented in this encounter Results * COVID-19 (SARS-CoV-2), DWAYNE (In-House) (01/04/2021 9:31 AM EDT) SARS CoV 2 Not Detected Not Detected 01/04/2021 1:44 PM EDT [facility] Comment: Negative results do not [...] (FDA) under an Emergency Use Authorization (EUA). Validation was completed and performance characteristics established by [facility] as per the FDA and CLIA requirement for this EUA. The Aptima SARS-CoV-2 assay Letter of Authorization, along with the authorized Fact Sheet for Healthcare Providers, the authorized Fact Sheet for Patients, and authorized labeling are available on the FDA website: https://www.fda.gov/medical-devices/mkygivhcy-nrjwcjjlhu-slvgdxr-devices/emergen -us y-znsyrimslgvusy-nwrkshw-devices. Performed at [facility], [place], [place] License 0385 CLIA [id number] Source Nasopharyngeal 01/04/2021 1:44 PM EDT [facility] Comment:Performed at [facility], [facility], [place] license No. [id number] CLIA No. [id number] Microbiology Nasopharyngeal swab / Unknown 01/04/2021 9:31 AM EDT 01/04/2021 9:31 AM EDT us Kemar Melendez MD MICROBIOLOGY - GENERAL ORDER ANN Final Result [facility] [address] [place] [address] documented in this encounter Visit Diagnoses Diagnosis Encounter for laboratory testing for COVID-19 virus documented in this encounter
--- OUTSIDE RECORDS SUMMARY | 2025-07-30 17:31 | XMS_ITS | Encounter Summary ---
Author Organization [facility] Address [facility] [address] [place] [address] Phone Care Team Providers Care Cdl Instructor Name Role Phone Douglas Díaz MD Primary Care Provider [phone] Encounter Details Date Type Department Care Team (Late Contact Info) Description 02/16/2023 Procedure Pass [facility] [address] [place] [address] Social History Tobacco Use Types Packs/Day Years Used Date Smoking Tobacco: Never Smokeless Tobacco: Never Education Answer Date Recorded Are you interested in more education? Not on akil e 01/28/2023 Are you concerned about learning? Not on file 01/28/2023 No 01/28/2023 No 01/28/2023 Sex and Gender Information Value Date Recorded Sex Assigned at Male 10/01/2022 10:37 AM EST Legal Sex Male 6:11 PM EST Gender Identity Male 08/10/2024 3:56 PM EST Sexual Orientation Straight 10/01/2022 10 :37 AM EST documented as of this encounter Plan of Treatment Upcoming Encounters Date Type Department Care Team (Late Contact Info) Description 08/23/2025 10:40 AM EST Office Visit [facility] Cardi[facility] Clinic [address] [place] [address] Fransisco Ruby MD, PhD [address] [address], [address] [place] [address] [email or web address] documented as of this encounter Visit Diagnoses Not on filedocumented in this encounter Additional Health Concerns Assessment Noted Time PHQ-9 Depression Total Score: 0 08/08/20 15 10:37 AM EST PHQ-2 Depression Total Score: 0 08/14/20 21 10:51 AM EST documented as of this encounter Care Teams Cdl Instructor Relationship Specialty Start Date End Date Douglas Díaz MD [address] [place] [address] [address] [place] [address] PCP - General Internal Medicine 08/08/15 documented as of this encounter Additional Source Comments The information contained in this document represents components of the legal health record. It is not the complete legal health record.[facility]
--- OUTSIDE RECORDS SUMMARY | 2025-07-30 17:31 | XMS_ITS | Patient Health Record ---
Author Organization [facility] Address [address] [facility] [place] [address] Care Team Providers Care Computator Name Role Phone Douglas Díaz Primary Care Provider Amari Ho Unavailable [phone] Allergies No Known Allergies Reason For Referral No Information Medications Medication SIG (Take, Route, Frequency, Duration) Notes Start Date End Date Status ZyrTEC Allergy 10 MG 1 tablet Orally Onc e a day; Duration: 30 day(s) Active Aspirin 81 MG 1 tablet Orally Once a day; Duration: 30 day(s) Active Finasteride 5 MG 1 tablet Orally Once a day; Duration: 30 day(s) Active Atorvastatin Calcium 80 MG 1 tablet Oral ly Once a day; Duration: 30 day(s) Active Lisinopril 10 MG 1 tablet Orally Once a day; Duration: 30 day(s) Active Multivitamin Active Metoprolol Succinate 25 MG 1 capsule Ora lly Once a day; Duration: 30 day(s) Active Immunizations Vaccine Route Administration [...] W/U Status Risk Notes Problem Plantar wart (62637414) Plantar wart (B07.0) Active confirmed Plan Of Treatment Pending Test Test Name Order Date X ray : Foot, left 3V 04/21/2022 [id number] Destruction, 1-14 04/21/2022 Insurance Providers Payer Name Payer Address Payer Phone Subscriber Number Group Number Insured Name Patient Relationship to Insured Coverage Start Date Coverage End Date Medicare National Govt Svcs Inc [address] [facility] [place] [address] [id number] Suraj Bee Self - patient is the insured [employer] ([facility]) [address] [place] [address] [id number] Suraj Bee Self - patient is the insured Medical (General) History Medical History History ICD Code Arthritis Cancer Heart disease raynauds disease Measles Mumps Chicken pox HTN Surgical History Surgery Date(Month/Year) Closure of PSO 08/2007 MOHS 10/2021
== END 2025-07-30 14:27 | disposition home or self-care (01) ==
LOC: HO.HMCH 13:52
PROVIDERS: PCP Internal Medicine; Visit Provider Internal Medicine
DX: M79.672 Pain in left foot (principal)

== ENCOUNTER → 2025-07-30 14:51 | Outpatient (BNV) | payer MEDICARE, OTHER, SELFPAY | PROVIDERS: Absent Provider Urology; PCP Internal Medicine; Visit Provider Radiology Diagnostic Radiology | DX: M79.672 Pain in left foot (principal) | CPT/HCPCS: 73630 ==

== ENCOUNTER 2025-08-10 08:28 | Outpatient (AMB) | payer MEDICARE, OTHER, SELFPAY ==
[2025-08-10 08:45] VITALS: BMI 24.7
--- NOTE | 2025-08-10 08:45 | MHC.OFFVIS ---
Vital Signs 08/10/25 08:45 Height 5 ft 6 in Weight 153 lb BMI 24.7 Intake Visit Reasons: Left foot pain Intake Note: Suraj is a 74 year old male who presents today as a new patient for an evaluation of his left foot pain. Pain started on 07/17/25 and he noticed swelling and a growth on the back of his achilees. He has tried icing and elevating the foot,OTC Tylenol and Dr. mejia pain relief and has found slight relief. X-ray's in patients chart Foot X-ray IMPRESSION: Possible Achilles tendinopathy/partial tear. Allergies No Known Allergies Allergy (Verified 08/10/25 08:46) HPI HPI Left foot pain: Details: The patient is a 74-year-old male presenting with left Achilles tendon swelling. The symptoms first began in July following increased physical activity, including walking two miles, which led to back pain that resolved after five days. Subsequently, the patient noticed swelling and a protruding mass over the Achilles tendon, which became painful when wearing shoes. He notes he does not have pain to the ankle when walking or going upstairs at this point, and the pain is present typically only when he is wearing shoes that rub against the Achilles tendon swelling. He states he typically walks over 2 miles however he has been avoiding a due to the Achilles pain. He is still using the elliptical and stationary bike to maintain his cardiac catheterization. Additionally, the patient complains of right 2nd digit swelling and pain. Medical History: - Aortic aneurysm Medications: - Cardiac medications (specific medications not detailed) Social History: - Engages in regular physical activity, including walking and using an exercise bike. [facility] Medical History COVID-19 vaccine series completed Skin cancer Annual physical exam Patent foramen ovale Mercury poisoning Cardiomyopathy Hypercholesterolemia PSA elevation Impaired fasting glucose Coronary artery disease Thrombophlebitis Surgical History H/O colonoscopy History of surgery Family History Father CHF (congestive heart failure) CAD (coronary artery disease) CVD (cardiovascular disease) Skin cancer Mother CVD (cardiovascular disease) Acute CVA (cerebrovascular accident) Paternal Grandfather Acute CVA (cerebrovascular accident) Maternal Grandfather CAD (coronary artery disease) Social History Housing: House Alcohol intake: current Comment: once a day 1 glass dinner Patient Tobacco Use Status: Never used Tobacco Tobacco use type: Cigarette e-Cigarette/Vaping Use: Never Used Second Hand Smoke Exposure: No Current occupational status: retired Cognitive needs: No Hearing needs: No Vision needs: Yes Review of Systems Const All systems reviewed & are unremarkable except as noted in HPI and below Physical Exam Vital Signs: BMI result Body Mass Index 24.7 Extrem Other: *Bilateral Lower Extremity Focused Exam Vascular: DP/PT 2/4, CFT less than 3 seconds all digits, temperature gradient warm to cool. Mild fusiform edema to the left Achilles, 3 cm from insertion. Derm: No open wounds or clinical signs of infection to the left leg. Right dorsal 2nd DIPJ mild edema and erythema. Neuro: Protective sensation grossly intact to bilateral lower extremities MSK: Moderate tenderness on palpation of the dorsal 2nd DIPJ right foot. No tenderness on palpation of the left Achilles tendon. Plantar flexion and dorsiflexion 5/5 bilateral lower extremities. Mild tenderness of the left Achilles tendon on maximum dorsiflexion. Results Reviewed Results Reviewed: Podiatry X-ray Read: 07/30/2025 X-ray left foot 3 views (AP, MO, Lateral) reviewed which shows mild flattening of the 1st metatarsal head, mild joint space narrowing. No insertional spurring of the calcaneus. Mild decreased bone density to the left forefoot and the metatarsal bases. I personally reviewed the imaging and my findings are listed above. Assessment & Plan Assessment & Plan (1) Achilles tendinitis of left lower extremity: Code(s): M76.62 - Achilles tendinitis, left leg Category: Medical Plan: Reviewed left foot x-rays. Recommended stretching exercises for left Achilles tendon. A hand-out was dispensed. Recommended use of a heel lift. Avoid high impact activities, treadmill, and long durations of walking. Referred to physical therapy. Follow up in 3 weeks. (2) Acquired hammer toe of right foot: Code(s): M20.41 - Other hammer toe(s) (acquired), right foot Category: Medical Plan: Recommend shoes with a wide toe box Discussed possible injection into the 2nd PIPJ if flare/pain continues. Orders: Orders PT Evaluation and Treatment Today M76.60 - Achilles tendinitis, unspecified leg Coding Level of Care Code New Pt Level 4 (44413) Diagnoses Achilles tendinitis of left lower extremity M76.62 Acquired hammer toe of right foot M20.41 Time Spent (min) 40
--- OUTSIDE RECORDS SUMMARY | 2025-08-10 09:00 | XMS_ITS | Clinical Summary ---
Author Organization [facility] Address [address] [place] [address] Care Team Providers Care Study Director Name Role Phone Unavailable Primary Care Provider [...]
--- OUTSIDE RECORDS SUMMARY | 2025-08-10 09:00 | XMS_ITS | Clinical Summary ---
Author Organization [facility] Address [address] [place] [address] Phone Care Team Providers Care Supervisor Lathing Name Role Phone Douglas Díaz MD Primary Care Provider [phone] Allergies No known active allergies Medications atorvastatin [...] PPSV23 08/19,04/21/2007(Deferred: Other - , Ordered By: [id number]) Social History Tobacco Use Types Packs/Day Years [...] Description 08/23/2025 10:40 AM EST Office Visit [facility] [address] [place] [address] Fransisco Barba MD, PhD [address] [place] [address], [address] [place] [address] [email or web address] Health Maintenance Due Date Last Done [...] topic Medical Devices Not on file Insurance Priori Data [facility] EXTENSION MEDICARE SUPPLEMENT MEDICARE PART A & B [employer] EXTENSION MEDICARE SUPPLEMENT MEDICARE PART A & B Priori Data [facility] EXTENSION MEDICARE SUPPLEMENT MEDICARE PART A & B S&N [employer] EXTENSION MEDICARE SUPPLEMENT MEDICARE PART A & B S&N [employer] EXTENSION MEDICARE SUPPLEMENT MEDICARE PART A & B EXTENSION MEDICARE SUPPLEMENT MEDICARE PART A & B EXTENSION MEDICARE SUPPLEMENT MEDICARE PART A & B EXTENSION MEDICARE SUPPLEMENT MEDICARE PART A & B [facility] EXTENSION MEDICARE SUPPLEMENT MEDICARE PART A & B Care Teams Supervisor Lathing Relationship Specialty Start Date End Date Douglas Díaz MD [address] [place] [address] Drive [address] [place] [address] PCP - General Internal Medicine 08/08/15 Additional Source Comments The information contained in this document represents components of the legal health record. It is not the complete legal health record.[facility]
--- OUTSIDE RECORDS SUMMARY | 2025-08-10 09:01 | XMS_ITS | Encounter Summary ---
Author Organization [facility] Address [facility] [employer] [facility] [address] [place] [address] Phone Care Team Providers Care Bedspread Inspector Name Role Phone Douglas Díaz MD Primary Care Provider [phone] Encounter Details Date Type Department Care Team (Late st Contact Info) Description 09/11/2015 Transcribe Orders [facility] [address] [place] [address] Ghazal Antoine [address] [place] [address] [email or web address] Social History Tobacco Use Types Packs/Day Years [...] Description 08/23/2025 10:40 AM EST Office Visit [facility] [address] [place] [address] Fransisco Ruby MD, PhD [address] [facility], [address] [place] [address] [email or web address] documented as of this encounter Results * [...] documented as of this encounter Care Teams Bedspread Inspector Relationship Specialty Start Date End Date Douglas Díaz MD [address] [place] [address] [place] [address] PCP - General Internal Medicine 08/08/15 documented as of this encounter Additional Source Comments The information contained in this document represents components of the legal health record. It is not the complete legal health record.[facility]
--- OUTSIDE RECORDS SUMMARY | 2025-08-10 09:01 | XMS_ITS | Patient Health Record ---
Author Organization [facility] Address [address] [place] [address] Care Team Providers Care Manager Merchandise Name Role Phone Po Douglas JAVED Primary Care Provider Cyrus Loredo [phone] Reason For Referral No Information Medications Medication [...] Problem Screening for malignant neoplasm of colon (772092171) Encounter for screening for malignant neoplasm of colon (Z12.11) Active confirmed Problem Screening for malignant neoplasm of rectum (984993786) Encounter for screening for malignant neoplasm of rectum (Z12.12) Active confirmed Problem Preprocedural examination (786554141256225) Preprocedural examination (Z01.818) Active confirmed Problem Long-term current use of antiplatelet drug (845183881923255) Long-term use of aspirin therapy (Z79.82) Active confirmed Problem Diverticulosis of colon (014763191) Diverticulosis of colon (K57.30) Active confirmed Plan Of Treatment Pending Test Test Name Order Date Pathology 03/04/2022 Future Test Test Name Order Date COLONOSCOPY 10/14/2016 COLONOSCOPY 01/15/2022 Insurance Providers Payer Name Payer Address Payer Phone Subscriber Number Group Number Insured Name Patient Relationship to Insured Coverage Start Date Coverage End Date MEDICARE OF [place] [address] [place] [address] [id number] JACQUI GODOY Self - patient is the insured [facility] IN[facility]MN[facility] [address] [place] [address] [id number] JACQUI GODOY Self - patient is the insured Medical (General) History Medical History History ICD Code [place] 01/24/2007--he describes t hat his cardiac catheterization [...] the septal defect closed angiographically by an cold roll operator at [facility] in [place] Denies DM,CVA,Lung disease,renal disease Hyperlipidemia Negative screening colonosco py in 2005, other than internal hemorrhoids, with Dr. 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
--- OUTSIDE RECORDS SUMMARY | 2025-08-10 09:01 | XMS_ITS | Encounter Summary ---
Author Organization [facility] Address [facility] [facility] [address] [place] [address] Phone Care Team Providers Care Behavioral Psychologist Name Role Phone Douglas Díaz MD Primary Care Provider [phone] Encounter Details Date Type Department Care Team (Late st Contact Info) Description 01/12/2023 Procedure Pass [facility] [address] [place] [address] Social History Tobacco Use Types Packs/Day Years [...] Description 08/23/2025 10:40 AM EST Office Visit [facility] [address] [place] [address] Fransisco Ruby MD, PhD [address] [place] [address], [address] [place], [place] [address] [email or web address] documented as of this encounter Visit Diagnoses Not on filedocumented in this encounter Additional Health Concerns Assessment Noted Time PHQ-9 Depression Total Score: 0 08/08/20 15 10:37 AM EST PHQ-2 Depression Total Score: 0 11/11/20 21 10:51 AM EST documented as of this encounter Care Teams Behavioral Psychologist Relationship Specialty Start Date End Date Douglas Díaz MD [address] [place] [address] PCP - General Internal Medicine 08/08/15 documented as of this encounter Additional Source Comments The information contained in this document represents components of the legal health record. It is not the complete legal health record.[facility]
--- OUTSIDE RECORDS SUMMARY | 2025-08-10 09:01 | XMS_ITS | Encounter Summary ---
Author Organization [facility] Address [address] [place] [address] [place] [address] Phone Care Team Providers Care Health Care Assistant Name Role Phone Douglas Díaz MD Primary Care Provider [phone] Encounter Details Date Type Department Care Team (Latest Contact Info) Description 09/12/[address] [facility] Nuclear Medicine [address] [place] [address] Maryellen Perdomo [address] [address] [email or web address] Atrial septal defect (Primary Dx) Social History [...] Description 08/23/2025 10:40 AM EST Office Visit [facility] [address] [place] [address] Fransisco Ruby MD, PhD [address] [facility] [address] [place], [place] [id number] [email or web address] documented as of this encounter Results * [...] documented as of this encounter Care Teams Health Care Assistant Relationship Specialty Start Date End Date Arjun, Douglas Hines MD [address] [place] [address] [place] [phone] PCP - General Internal Medicine 08/08/15 documented as of this encounter Additional Source Comments The information contained in this document represents components of the legal health record. It is not the complete legal health record.[facility]
--- OUTSIDE RECORDS SUMMARY | 2025-08-10 09:01 | XMS_ITS | Encounter Summary ---
Author Organization [facility] Address [facility] [email or web address] [facility] [address] [place] [address] Phone Care Team Providers Care Aerial Photograph Interpreter Name Role Phone Douglas Díaz MD Primary Care Provider [phone] Encounter Details Date Type Department Care Team (Late st Contact Info) Description 08/12/2023 Procedure Pass [facility] [address] [place] [address] Social History Tobacco Use Types Packs/Day Years [...] Description 08/23/2025 10:40 AM EST Office Visit [facility] Cardiovascular Clinic [address] [place] [address] Fransisco Ruby MD, PhD [address] [place] [address], [address] [place] [address] [email or web address] documented as of this encounter Visit Diagnoses Not on filedocumented in this encounter Additional Health Concerns Assessment Noted Time PHQ-9 Depression Total Score: 0 08/08/20 15 10:37 AM EST PHQ-2 Depression Total Score: 0 08/14/20 21 10:51 AM EST documented as of this encounter Care Teams Aerial Photograph Interpreter Relationship Specialty Start Date End Date Douglas Díaz MD [address] [place] [address] PCP - General Internal Medicine 08/08/15 documented as of this encounter Additional Source Comments The information contained in this document represents components of the legal health record. It is not the complete legal health record.[facility]
--- OUTSIDE RECORDS SUMMARY | 2025-08-10 09:01 | XMS_ITS | Encounter Summary ---
Author Organization [facility] Address [address] [place] [address] Phone Care Team Providers Care Fish Boning Machine Feeder Name Role Phone Douglas Díaz MD Primary Care Provider [phone] Encounter Details Date Type Department Care Team (Late Contact Info) Description 10/13/2015 EpicOnHand Encounter [facility] [address] [place] [address] Fransisco Ruby MD, PhD [address] [place] [address], [address] [place] [address] [email or web address] Social History Tobacco Use Types [...] Description 08/23/2025 10:40 AM EST Office Visit [facility] [address] [place] [address] Fransisco Ruby MD, PhD [address] [place] [address], [address] [place] [address] [email or web address] documented as of this encounter Visit Diagnoses Not on filedocumented in this encounter Additional Health Concerns Assessment Noted Time PHQ-9 Depression Total Score: 0 08/08/20 10:37 AM EST PHQ-2 Depression Total Score: 0 08/08/20 10:37 AM EST documented as of this encounter Care Teams Fish Boning Machine Feeder Relationship Specialty Start Date End Date Douglas Díaz MD [address] [place] [address] [address] [place] [address] PCP - General Internal Medicine 08/08/15 documented as of this encounter Additional Source Comments The information contained in this document represents components of the legal health record. It is not the complete legal health record.[facility]
--- OUTSIDE RECORDS SUMMARY | 2025-08-10 09:02 | XMS_ITS | Patient Health Record ---
Author Organization [facility] Address [address] [place] [address] Care Team Providers Care Veterinary Medicine Doctor Name Role Phone Douglas Díaz Primary Care Provider Amari Ho Unavailable [phone] Allergies No Known Allergies Reason For Referral [...] W/U Status Risk Notes Problem Plantar wart (17663942) Plantar wart (B07.0) Active confirmed Plan Of Treatment Pending Test Test Name Order Date X ray : Foot, left 3V 04/21/2022 [id number] Destruction, 1-14 04/21/2022 Insurance Providers Payer Name Payer Address Payer Phone Subscriber Number Group Number Insured Name Patient Relationship to Insured Coverage Start Date Coverage End Date Medicare National [employer]t [employer] [address] [facility] [address] [id number] Suraj Bee Self - patient is the insured [employer] [facility] [address] [place] [address] [id number] Suraj Bee Self - patient is the insured Medical (General) History Medical History History ICD Code Arthritis Cancer Heart disease raynauds disease Measles Mumps Chicken pox HTN Surgical History Surgery Date(Month/Year) Closure of PSO 08/2007 MOHS 10/2021
--- OUTSIDE RECORDS SUMMARY | 2025-08-10 09:02 | XMS_ITS | Encounter Summary ---
Author Organization [facility] Address [facility] [address] [place] [address] Phone Care Team Providers Care Federal Judge Name Role Phone Douglas Díaz MD Primary Care Provider [phone] Encounter Details Date Type Department Care Team (Late Contact Info) Description 02/16/2023 Procedure Pass [facility] [address] [place] [address] Social History Tobacco Use Types Packs/Day Years [...] 08/23/2025 10:40 AM EST Office Visit [facility] [address] [place] [address] Fransisco Ruby MD, PhD [address] [address], [address] [place] [address] [email or web address] documented as of this encounter Visit Diagnoses Not on filedocumented in this encounter Additional Health Concerns Assessment Noted Time PHQ-9 Depression Total Score: 0 08/08/20 15 10:37 AM EST PHQ-2 Depression Total Score: 0 08/14/20 21 10:51 AM EST documented as of this encounter Care Teams Federal Judge Relationship Specialty Start Date End Date Douglas Díaz MD [address] [place] [address] [address] [place] [address] PCP - General Internal Medicine 08/08/15 documented as of this encounter Additional Source Comments The information contained in this document represents components of the legal health record. It is not the complete legal health record.[facility]
== END 2025-08-10 09:25 | disposition home or self-care (01) ==
LOC: HO.HPODS 08:28
PROVIDERS: PCP Internal Medicine; Visit Provider Student in an Organized Health Care Education/Training Program
DX: M76.62 Achilles tendinitis, left leg (principal); M20.41 Other hammer toe(s) (acquired), right foot
CPT/HCPCS: 99204

== ENCOUNTER → 2025-08-10 08:28 | Outpatient (BNVA) | payer MEDICARE, OTHER, SELFPAY | PROVIDERS: PCP Internal Medicine; Visit Provider Student in an Organized Health Care Education/Training Program | DX: M76.62 Achilles tendinitis, left leg (principal); M20.41 Other hammer toe(s) (acquired), right foot | CPT/HCPCS: 99202 ==

== ENCOUNTER 2025-08-24 14:49 | Outpatient (AMB) | payer MEDICARE, OTHER, SELFPAY ==
--- OUTSIDE RECORDS SUMMARY | 2025-08-23 10:40 | XMS_ITS | Encounter Summary ---
Author Organization [facility] Address [facility] Outcome Referrals [facility] [address] [place] [address] Phone Care Team Providers Care Application Specialist Name Role Phone Douglas Díaz MD Primary Care Provider [phone] Encounter Details Date Type Department Care Team (Latest Contact Info) Description 08/23/2025 10:40 AM EST Office Visit [facility] [address] [place] [address] Fransisco Ruby MD, PhD [address] [place] [address], [address] [place] [address] [email or web address] Ischemic cardiomyopathy (Primary Dx); Coronary artery embolus; Myocardial infarction greater than 8 weeks ago; Ventricular aneurysm as complication of acute myocardial infarction; Essential hypertension; Patent foramen ovale; Hypercoagulable state; Raynaud's phenomenon without gangrene; Mixed hyperlipidemia Social History Tobacco Use Types Packs/Day Years [...] AM EST documented as of this encounter Last Filed Vital Signs Vital Sign Reading Time Taken Comments Blood Pressure 116/70 08/23/2025 10:54 AM EST Pulse 50 08/23/2025 10:54 AM EST Temperature - - Respiratory Rate - - Oxygen Saturation 98% 08/23/2025 10:54 AM EST Inhaled Oxygen Concentration - - Weight 69.9 kg (154 lb) 08/23/2025 10:54 AM EST with shoes Height - - Body Mass Index 24.86 07/06/2024 6:26 PM EDT documented in this encounter Progress Notes * Fransisco Ruby MD, PhD - 08/23/2025 10:40 AM EST Images from the original note were not included. 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 Since his last visit last year, he has done well without chest pain, palpitations, lightheadedness, WOODS, or PND. 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 He continues to exercise regularly without difficulty, walking 2 miles per day although a recent left foot injury has decreased his exercise frequency recently (now improving). His past medical history is otherwise notable for a myocardial infarction (likely secondaryto a paradoxical embolus), a possible hypercoagulable state (although routine thrombogenic risk factor assessment has revealed no abnormalities), hypercholesterolemia, benign prostatic hypertrophy, and seasonal allergies. He has no known allergies to any medications. His current medications include aspirin 81 mg po qd, apixaban 5 mg po bid, atorvastatin 80 mg po qd, ezetimibe 10 mg po qd, finasteride 5 mg po qd, lisinopril 10 mg po qd, metoprolol XL 25 mg po qd, Nasonex prn, and one multivitamin per day. His review of systems is otherwise negative in detail today including the specific symptoms described above. Speech is normal without word finding difficulties. On physical examination today, he is a pleasant gentleman in no apparent distress appearing his stated age. Pulse was 50 and regular. Blood pressure was 116/80. Respiratory rate was 14 and unlabored.His weight was 154 lbs., down 6 lbs. from that of his last visit. Examination of the HEENT was unremarkable. He had 2+ carotids bilaterally with good upstroke and no bruits. His chest was clear to percussion and auscultation. He had a slightly dyskinetic apex impulse in the fifth intercostal space at the mid-axillary line. He had a soft S1, a physiologically split S2, and an intermittent S4 with no S3 or murmurs. He had a nine centimeter liver 1-2 fingerbreadths below the right costal margin and no palpable spleen. He had 2+ peripheral pulses bilaterally throughout and no peripheral edema. His electrocardiogram was essentially unchanged from that of his last visit. 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 I have asked that he continue his current medications withoutchange. He will return to see me in 1 year (or sooner if needed). Fransisco Ruby M.D., Ph.D. documented in this encounter Plan of Treatment Upcoming Encounters Date Type Department Care Team (Late st Contact Info) Description 08/22/2026 10:40 AM EST Office Visit [facility] [address] [place] [address] Fransisco Ruby MD, PhD [address] [place] [address], [address] [place] [id number] [email or web address] documented as of this encounter Procedures Procedure Name Priority Date/Time Associated Diagnosis Comments ECG 12-LEAD Routine 08/23/2025 10:51 AM EST documented in this encounter Results * ECG 12-LEAD (08/23/2025 10:51 AM EST) Ventricular Rate EKG/MIN 50 BPM M[facility] Atrial Rate 50 BPM [facility] KS Interval 158 ms [facility] QRS Duration 114 ms [facility] QT Interval 420 ms [facility] QTC Interval 382 ms [facility] P [place] 62 degrees [facility] R Wave [place] -64 degrees [facility] T Wave [place] 107 degrees [facility] 08/23/2025 10:5 1 AM EST Narrative [facility] - 08/23/2025 2:39 PM EST Sinus bradycardia Left anterior fascicular block Moderate voltage criteria for LVH ( R in aVL , Fonda product ) Lateral infarct (cited on or before 17-Mar-2007) Poor R-wave progression ; consider septal infarct, lead placement, or normal variant T wave abnormality, consider anterior ischemia Abnormal ECG When compared with ECG of 29-Aug-2024 11:05, No significant change was found us Fransisco Ruby MD, PhD ECG ORDERABLES Final Re sult ALEX_SHMUEL documented in this encounter Visit Diagnoses Diagnosis Ischemic cardiomyopathy- Primary Other specified forms of chronic ischemic heart disease Coronary artery embolus Acute myocardial infarction, unspecified site, episode of care unspecified Myocardial infarction greater than 8 weeks ago Ventricular aneurysm as complication of acute myocardial infarction Essential hypertension Unspecified essential hypertension Patent foramen ovale Ostium secundum type atrial septal defect Hypercoagulable state Primary hypercoagulable state Raynaud's phenomenon without gangrene Mixed hyperlipidemia documented in this encounter Additional Health Concerns Assessment Noted Time PHQ-9 Depression Total Score: 0 08/08/20 15 10:37 AM EST PHQ-2 Depression Total Score: 0 08/14/20 21 10:51 AM EST documented as of this encounter Care Teams Application Specialist Relationship Specialty Start Date End Date Douglas Díaz MD [address] [place] [address] PCP - General Internal Medicine 08/08/15 documented as of this encounter Additional Source Comments The information contained in this document represents components of the legal health record. It is not the complete legal health record.[facility]
--- NOTE | 2025-08-24 15:00 | A.OFFVIS_ITS ---
Intake Visit Reasons: 1Y PSA/PVR Intake Note: Patient is present for PSA/PVR Urology med: Finasteride Antibiotic Allergy: None Blood Thinner: Apixaban PSA- 1.49 07/30/2025 PVR:0ML Accompanied by: Self / Same As Patient Allergies No Known Allergies Allergy (Verified 08/24/25 15:07) HPI Comments Details: Chito is a very pleasant male. He is a patient of Dr. Díaz. 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 [place] Elevated PSA Followed for many years PSA - 10/23 4.6 free PSA , 08/23 3.8, 01/23 4.2 27%, 07/25 2.1, 01/24 2.4 on finasteride, 08/26 1.4, 04/26 1.3, 07/28 1.5 Variable PSA readings over time Has noticed decrease in urinary frequency and improved stream since starting finasteride PFSH Medical History COVID-19 vaccine series completed Skin cancer Annual physical exam Patent foramen ovale Mercury poisoning Cardiomyopathy Hypercholesterolemia PSA elevation Impaired fasting glucose Coronary artery disease Thrombophlebitis Surgical History H/O colonoscopy History of surgery Family History Father CHF (congestive heart failure) CAD (coronary artery disease) CVD (cardiovascular disease) Skin cancer Mother CVD (cardiovascular disease) Acute CVA (cerebrovascular accident) Paternal Grandfather Acute CVA (cerebrovascular accident) Maternal Grandfather CAD (coronary artery disease) Social History Housing: House Alcohol intake: current Comment: once a day 1 glass dinner Patient Tobacco Use Status: Never used Tobacco Tobacco use type: Cigarette e-Cigarette/Vaping Use: Never Used Second Hand Smoke Exposure: No Current occupational status: retired Cognitive needs: No Hearing needs: No Vision needs: Yes Review of Systems Const Denies chills and Denies fever(s) Card Reports no additional complaints and Denies syncope Resp Denies cough GI Denies abdominal pain and Denies heartburn Reports as per HPI and Denies change in libido Neuro Denies syncope Psych Denies change in libido Endo Denies change in libido Physical Exam Const General: cooperative, healthy appearing, comfortable and no acute distress Orientation/consciousness: patient oriented x3 HEENT Face and sinus: Yes normal facial exam Mouth: moist mucous membranes Neck Neck: Yes normal visual inspection, Yes full ROM and Yes trachea midline Chest Chest palpation & inspection: normal inspection of the chest Resp Effort & Inspection: normal respiratory effort, able to speak in complete sentences and no respiratory distress GI Inspection: Yes normal to inspection Back/Spine/Pelvis Cervical Spine: normal cervical lordosis Thoracic/Lumbar Spine: thoracic and lumbar spine normal to inspection Skin General skin exam: no rashes or lesions noted Neuro General: patient oriented x3, gait normal, tone normal and moves all extremities Extrem General: Yes normal to inspection and Yes capillary refill normal Office Procedures Post Void Residual Post Residual Void Post Void Residual (PVR): 0 [id number]-[id number] Void Residual by ultrasound Assessment & Plan Assessment & Plan (1) PSA elevation: Comment: Dr. Sullivan Code(s): R97.20 - Elevated prostate specific antigen [PSA] Category: Medical (2) BPH w urinary obs/LUTS: Code(s): N40.1 - Benign prostatic hyperplasia with lower urinary tract symptoms; N13.8 - Other obstructive and reflux uropathy Category: Medical Plan Twelve month follow-up PSA office Orders: Orders Prostate Specific Antigen 12 Months N13.8 - Other obstructive and reflux uropathy, N40.1 - Benign prostatic hyperplasia with lower urinary tract symptoms AMB Post Void Residual by ultrasound Today N13.8 - Other obstructive and reflux uropathy, N40.1 - Benign prostatic hyperplasia with lower urinary tract symptoms Medications: Refilled finasteride 5 mg PO DAILY 90 tabs 3RF 90 days N13.8 - Other obstructive and reflux uropathy, N40.1 - Benign prostatic hyperplasia with lower urinary tract symptoms, R97.20 - Elevated prostate specific antigen [PSA] Patient Instructions: This note is constructed using voice recognition software. While every effort has been made to ensure accuracy conditioner tumbler errors may have been included. Imaging studies, laboratory and physical exam results were discussed and reviewed in detail. No major barriers to patient understanding were identified. An opportunity to ask questions regarding the treatment plan was provided. All questions were answered. The patient expressed understanding and agreement with the above treatment plan. The patient is aware they should contact our office by phone for worsening of their current condition or the appearance of new urologic symptoms. Compliance is encouraged with any medications and followup testing that is ordered. It is a privilege to participate in the urologic care of your patient. If you have any questions or concerns regarding treatment for the above conditions, or other urologic issues, please do not hesitate to contact me. The office telephone contact is [phone]. Sincerely, Dr Rajeev Sullivan MD, [facility] - Urology Compassionate Specialist Care for the Genitourinary System Coding Level of Care Code Est Pt Level 4 (41653) Diagnoses PSA elevation R97.20 BPH w urinary obs/LUTS N40.1; N13.8 CPT Codes Post Residual Void - PVR CPT Code: 90831-Wclt Void Residual by ultrasound ([id number])
--- OUTSIDE RECORDS SUMMARY | 2025-08-24 15:05 | XMS_ITS | Encounter Summary ---
Author Organization [facility] Address [address] [place] [address] [place] [address] Phone Care Team Providers Care Reed Fixer Name Role Phone Douglas Díaz MD Primary Care Provider [phone] Encounter Details Date Type Department Care Team (Latest Contact Info) Description 09/12/2015 Transcribe Orders [facility] Nuclear Medicine [address] [place] [address] Maryellen Perdomo [address] [address] [email or web address] Atrial septal defect (Primary Dx) [...] Description 08/22/2026 10:40 AM EST Office Visit [facility] [address] [place] [address] Fransisco Ruby MD, PhD [address] [facility] [address] [place], [place] [phone] [email or web address] documented as of this encounter [...] documented as of this encounter Care Teams Reed Fixer Relationship Specialty Start Date End Date Arjun, Douglas Hines MD [address] [place] [address] [place] [phone] PCP - General Internal Medicine 08/08/15 documented as of this encounter Additional Source Comments The information contained in this document represents components of the legal health record. It is not the complete legal health record.[facility]
--- OUTSIDE RECORDS SUMMARY | 2025-08-24 15:05 | XMS_ITS | Encounter Summary ---
Author Organization [facility] Address [facility] [facility] [address] [place] [address] Phone Care Team Providers Care Radiotelegraphist Name Role Phone Douglas Díaz MD Primary Care Provider [phone] Encounter Details Date Type Department Care Team (Late st Contact Info) Description 09/11/2015 Transcribe Orders [facility] [address] [place] [address] Ghazal Antoine [address] [place] [phone] [email or web address] Social History Tobacco Use Types Packs/Day Years [...] Description 08/22/2026 10:40 AM EST Office Visit [facility] [address] [place] [address] Fransisco Ruby MD, PhD [address] [facility] [address], [address] [place] [address] [email or web address] documented as of this encounter Results * [...] documented as of this encounter Care Teams Radiotelegraphist Relationship Specialty Start Date End Date Douglas Díaz MD [address] [place] [address] [place] [phone] PCP - General Internal Medicine 08/08/15 documented as of this encounter Additional Source Comments The information contained in this document represents components of the legal health record. It is not the complete legal health record.[facility]
--- OUTSIDE RECORDS SUMMARY | 2025-08-24 15:05 | XMS_ITS | Patient Health Record ---
Author Organization [facility] Address [address] [place] [address] Care Team Providers Care Field Supervisor Seed Production Name Role Phone Po Douglas JAVED Primary Care Provider Cyrus Loredo [phone] Reason For Referral No Information Medications Medication SIG (Take, Route, Frequency, Duration) Notes Start Date End Date Status ZyrTEC Allergy Activ e Multi Vitamin/Minerals - Tablet Orally Active Lisinopril 5 MG Tablet Orally Active Aspirin 81 MG Tablet Chewable 1 tablet Orally Once a day Active Metoprolol Tartrate 25 MG Tablet 1 tablet with food Orally Twice a day Active Atorvastatin Calcium 80 MG Tablet 1 tablet Orally Once a day Active Immunizations Vaccine Route Administration Date Status Comme nts Influenza Unknown 06/04/2021 Administered Social History Social History Additional Details Category Social Info Options Details Miscellaneous: Marital status: 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 Caffeine: 1-2 cups per day Section Notes: Nonsmoker; 1 drink a day Nonsmoker; 1 drink a day Problems Problem Type SNOMED Code ICD Code Onset Dates Problem Status W/U Status Risk Notes Problem Screening for malignant neoplasm of colon (495828825) Encounter for screening for malignant neoplasm of colon (Z12.11) Active confirmed Problem Screening for malignant neoplasm of rectum (715905452) Encounter for screening for malignant neoplasm of rectum (Z12.12) Active confirmed Problem Preprocedural examination (520324175091910) Preprocedural examination (Z01.818) Active confirmed Problem Long-term current use of antiplatelet drug (993068003375757) Long-term use of aspirin therapy (Z79.82) Active confirmed Problem Diverticulosis of colon (597320600) Diverticulosis of colon (K57.30) Active confirmed Plan Of Treatment Pending Test Test Name Order Date Pathology 03/04/2022 Future Test Test Name Order Date COLONOSCOPY 10/14/2016 COLONOSCOPY 01/15/2022 Insurance Providers Payer Name Payer Address Payer Phone Subscriber Number Group Number Insured Name Patient Relationship to Insured Coverage Start Date Coverage End Date MEDICARE OF [place] [address] [place] [address] [id number] RAINEJACQUI PEDERSEN Self - patient is the insured [facility] [address] [place] [address] [id number] JACQUI GODOY Self - patient is the insured Medical (General) History Medical History History ICD Code [place] 01/24/2007--he describes t hat his cardiac catheterization [...] the septal defect closed angiographically by an report programmer at [facility] in [place] Denies DM,CVA,Lung disease,renal disease Hyperlipidemia Negative screening colonosco py in 2005, other than internal hemorrhoids, with Dr. 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
--- OUTSIDE RECORDS SUMMARY | 2025-08-24 15:05 | XMS_ITS | Clinical Summary ---
Author Organization [facility] Address [address] [place] [address] Phone Care Team Providers Care Cast Iron Dipper Name Role Phone Douglas Díaz MD Primary Care Provider [phone] Allergies No known active allergies Medications atorvastatin [...] Hypercoagulable state 03/17/2007 Overview (11/24/2014): Hypercoagulable state Encounters Date Type Department Care Team Description 08/23/2025 10:40 AM EST Office Visit [facility] [address] [place] [address] Fransisco Barba MD, PhD Ischemic cardiomyopathy (Primary Dx); Coronary artery embolus; Myocardial infarction greater than 8 weeks ago; Ventricular aneurysm as complication of acute myocardial infarction; Essential hypertension; Patent foramen ovale; Hypercoagulable state; Raynaud's phenomenon without gangrene; Mixed hyperlipidemia 08/22/2025 Orders Only [facility] [address] [place] [address] Fransisco Barba MD, PhD from Last 3 Months Immunizations Immunization Administration Dates Next Due Influenza, Unspecified Formulation 08/18(Deferred: Other - pt already received flu shot) Pneumococcal polysaccharide PPSV23 08/19,04/21/2007(Deferred: Other - , Ordered By: [id number]) Social History Tobacco Use Types Packs/Day Years [...] Pulse 50 08/23/2025 10:54 AM EST Temperature 36.6 C (97.9 F) 08/22/2020 10:51 AM EST Respiratory Rate - - Oxygen Saturation 98% 08/23/2025 10:54 AM EST Inhaled Oxygen Concentration - - Weight 69.9 kg (154 lb) 08/23/2025 10:54 AM EST with shoes Height 167.6 cm (5' 6 ) 07/06/2024 6:26 PM EDT Body Mass Index 24.86 07/06/2024 6:26 PM EDT Plan of Treatment Upcoming Encounters Date Type Department Care Team (Late st Contact Info) Description 08/22/2026 10:40 AM EST Office Visit [facility] [address] [place] [address] Fransisco Barba MD, PhD [address] [place] [address], [address] [place] [address] [email or web address] Due Date Last Done Comments CREATININE LEVEL 1949 POTASSIUM LEVEL 1949 HEPATITIS C SCREENING 1967 COLOGUARD 1994 COLONOSCOPY 1994 COLORECTAL CANCER SCREENING 1994 FIT TEST 1994 FOBT 1994 SIGMOIDOSCOPY 1994 VIRTUAL COLONOSCOPY 1994 PNEUMOCOCCAL VACCINES (50+ years) (3 of 3 - PCV20 or PCV21) 07/29/2022 07/29/2017, 07/13/2017, 08/19/2007 DEPRESSION SCREENING 08/14/2022 08/14/2021, 08/08/20 15 COVID-19 VACCINE ( season) 2025 06/23/2025, 01/22/2025, 05/31/2024, Additional history exists BLOOD PRESSURE 02/20/2026 08/23/2025 Adult Td,Tdap Booster 07/07/2026 07/07/2016, 009 HEPATITIS A VACCINES Aged Out 12/17/2009, 07/03/2009, 06/03/2009 No longer eligible based on patient's age to complete this topic ZOSTER VACCINES Completed 06/28/2019, 05/04, 03/19/2019, Additional history exists RSV VACCINE Completed 05/27/2023 INFLUENZA VACCINE Completed 06/23/2025, , 07/08/2023, Additional history exists SMOKING STATUS SCREENING (Once After 26 Yrs) Completed 08/23/2025 HIB VACCINES Aged Out No longer eligi ble based on patient's age to complete this topic MENINGOCOCCAL VACCINES (ACWY) Aged Out No longer eligible based on patient's age to complete this topic MENINGOCOCCAL VACCINES (B) Aged Out N o longer eligible based on patient's age to complete this topic Medical Devices Not on file Procedures Procedure Name Priority Date/Time Associated Diagnosis Comments ECG 12-LEAD Routine 08/23/2025 10:51 AM EST from Last 3 Months Results * ECG 12-LEAD (08/23/2025 10:51 AM EST) Ventricular Rate EKG/MIN 50 BPM [facility] Atrial Rate 50 BPM [facility] AR Interval 158 ms [facility] QRS Duration 114 ms [facility] QT Interval 420 ms [facility] QTC Interval 382 ms [facility] P [place] 62 degrees [facility] R Wave [place] -64 degrees [facility] T Wave [place] 107 degrees [facility] 08/23/2025 10:5 1 AM EST Narrative M[facility] - 08/23/2025 2:39 PM EST Sinus bradycardia Left anterior fascicular block Moderate voltage criteria for LVH ( R in aVL , [place] product ) Lateral infarct (cited on or before 17-Mar-2007) Poor R-wave progression ; consider septal infarct, lead placement, or normal variant T wave abnormality, consider anterior ischemia Abnormal ECG When compared with ECG of 29-Aug-2024 11:05, No significant change was found us Fransisco Barba MD, PhD ECG ORDERABLES Final Re sult [facility] from Last 3 Months Insurance [employer] [facility] EXTENSION MEDICARE SUPPLEMENT MEDICARE PART A & B [employer] EXTENSION MEDICARE SUPPLEMENT MEDICARE PART A & B [employer] [facility] EXTENSION MEDICARE SUPPLEMENT MEDICARE PART A & B [employer] EXTENSION MEDICARE SUPPLEMENT MEDICARE PART A & B [employer] EXTENSION MEDICARE SUPPLEMENT MEDICARE PART A & B EXT[employer]ION MEDICARE SUPPLEMENT MEDICARE PART A & B [employer] MEDICARE SUPPLEMENT MEDICARE PART A & B EXTENSION MEDICARE SUPPLEMENT MEDICARE PART A & B [facility] EXTENSION MEDICARE SUPPLEMENT MEDICARE PART A & B Care Teams Cast Iron Dipper Relationship Specialty Start Date End Date Douglas Díaz MD [address] [place] [address] Drive [address] [place] [address] PCP - General Internal Medicine 08/08/15 Additional Source Comments The information contained in this document represents components of the legal health record. It is not the complete legal health record.[facility]
--- OUTSIDE RECORDS SUMMARY | 2025-08-24 15:06 | XMS_ITS | Encounter Summary ---
Author Organization [facility] Address [facility] [employer] [facility] [address] [place] [address] Phone Care Team Providers Care Sales Promotion Coordinator Name Role Phone Douglas Díaz MD Primary Care Provider [phone] Encounter Details Date Type Department Care Team (Late Contact Info) Description 02/16/2023 Procedure Pass [facility] [address] [place] [address] Social History Tobacco Use Types Packs/Day Years [...] Department Care Team (Late Contact Info) Description 08/22/2026 10:40 AM EST Office Visit [facility] [address] [place] [address] Fransisco Ruby MD, PhD [address] [address], [address] [place] [address] [email or web address] documented as of this encounter Visit Diagnoses Not on filedocumented in this encounter Additional Health Concerns Assessment Noted Time PHQ-9 Depression Total Score: 0 08/08/20 15 10:37 AM EST PHQ-2 Depression Total Score: 0 08/14/20 21 10:51 AM EST documented as of this encounter Care Teams Sales Promotion Coordinator Relationship Specialty Start Date End Date Douglas Díaz MD [address] [place] [address] [address] [place] [address] PCP - General Internal Medicine 08/08/15 documented as of this encounter Additional Source Comments The information contained in this document represents components of the legal health record. It is not the complete legal health record.[facility]
--- OUTSIDE RECORDS SUMMARY | 2025-08-24 15:06 | XMS_ITS | Encounter Summary ---
Author Organization [facility] Address [facility] [address] [place] [address] Phone Care Team Providers Care Split And Drum Room Supervisor Name Role Phone Douglas Díaz MD Primary Care Provider Encounter Details Date Type Department Care Team (Late st Contact Info) Description 08/12/2023 Procedure Pass [facility] [address] [place] [address] Social History Tobacco Use Types Packs/Day Years [...] Description 08/22/2026 10:40 AM EST Office Visit [facility] [address] [place] [address] Fransisco Ruby MD, PhD [address] [place] [address], [address] [place] [address] [email or web address] documented as of this encounter Visit Diagnoses Not on filedocumented in this encounter Additional Health Concerns Assessment Noted Time PHQ-9 Depression Total Score: 0 08/08/20 15 10:37 AM EST PHQ-2 Depression Total Score: 0 08/14/20 21 10:51 AM EST documented as of this encounter Care Teams Split And Drum Room Supervisor Relationship Specialty Start Date End Date Douglas Díaz MD [address] [place] [phone] PCP - General Internal Medicine 08/08/15 documented as of this encounter Additional Source Comments The information contained in this document represents components of the legal health record. It is not the complete legal health record.[facility]
--- OUTSIDE RECORDS SUMMARY | 2025-08-24 15:06 | XMS_ITS | Encounter Summary ---
Author Organization [facility] Address [facility] [address] [place] [address] Phone Care Team Providers Care Office Rental Clerk Name Role Phone Douglas Díaz MD Primary Care Provider [phone] Encounter Details Date Type Department Care Team (Late st Contact Info) Description 01/12/2023 Procedure Pass [facility] [address] [place] [address] Social History Tobacco Use Types Packs/Day Years [...] Description 08/22/2026 10:40 AM EST Office Visit [facility] [address] [place] [address] Fransisco Ruby MD, PhD [address] [place] [address], [address] [place], [place] [id number] [email or web address] documented as of this encounter Visit Diagnoses Not on filedocumented in this encounter Additional Health Concerns Assessment Noted Time PHQ-9 Depression Total Score: 0 08/08/20 15 10:37 AM EST PHQ-2 Depression Total Score: 0 11/11/20 21 10:51 AM EST documented as of this encounter Care Teams Office Rental Clerk Relationship Specialty Start Date End Date Douglas Díaz MD [address] [place] [address] PCP - General Internal Medicine 08/08/15 documented as of this encounter Additional Source Comments The information contained in this document represents components of the legal health record. It is not the complete legal health record.[facility]
--- OUTSIDE RECORDS SUMMARY | 2025-08-24 15:06 | XMS_ITS | Encounter Summary ---
Author Organization [facility] Address [facility] [address] [place] [address] Phone Care Team Providers Care Teaching Dietitian Name Role Phone Douglas Díaz MD Primary Care Provider Encounter Details Date Type Department Care Team (Late st Contact Info) Description 08/22/[address] [facility] [address] [place] [address] Fransisco Ruby MD, PhD [address] [place] [address], [address] [place] [address] [email or web address] Social History Tobacco Use Types [...] Description 08/22/2026 10:40 AM EST Office Visit [facility] [address] [place] [address] Fransisco Ruby MD, PhD [address] [facility], [address] [place] [address] [email or web address] documented as of this encounter Results * ECG 12-LEAD (08/23/2025 10:51 AM EST) Ventricular Rate EKG/MIN 50 BPM [facility] Atrial Rate 50 BPM [facility] [place] Interval 158 ms [facility] QRS Duration 114 ms [facility] QT Interval 420 ms [facility] QTC Interval 382 ms [facility] P [place] 62 degrees MUSE_B[facility] R Wave [place] -64 degrees [facility] T Wave [place] 107 degrees [facility] 08/23/2025 10:5 1 AM EST Narrative [facility] - 08/23/2025 2:39 PM EST Sinus bradycardia Left anterior fascicular block Moderate voltage criteria for LVH ( R in aVL , [place] product ) Lateral infarct (cited on or before 17-Mar-2007) Poor R-wave progression ; consider septal infarct, lead placement, or normal variant T wave abnormality, consider anterior ischemia Abnormal ECG When compared with ECG of 29-Aug-2024 11:05, No significant change was found us Fransisco Ruby MD, PhD ECG ORDERABLES Final Re sult M[facility] documented in this encounter Visit Diagnoses Not on filedocumented in this encounter Additional Health Concerns Assessment Noted Time PHQ-9 Depression Total Score: 0 08/08/20 15 10:37 AM EST PHQ-2 Depression Total Score: 0 08/14/20 21 10:51 AM EST documented as of this encounter Care Teams Teaching Dietitian Relationship Specialty Start Date End Date Douglas Díaz MD [address] [place] [address] Drive [address] [place] [address] PCP - General Internal Medicine 08/08/15 documented as of this encounter Additional Source Comments The information contained in this document represents components of the legal health record. It is not the complete legal health record.[facility]
--- OUTSIDE RECORDS SUMMARY | 2025-08-24 15:06 | XMS_ITS | Patient Health Record ---
Author Organization [facility] Address [address] [facility] [facility] [place] [address] Care Team Providers Care Analytical Engineer Name Role Phone Douglas Díaz Primary Care Provider Amari Ho Unavailable [phone] Allergies No Known Allergies Reason For Referral [...] W/U Status Risk Notes Problem Plantar wart (78230390) Plantar wart (B07.0) Active confirmed Plan Of Treatment Pending Test Test Name Order Date X ray : Foot, left 3V 04/21/2022 [id number] Destruction, 1-14 04/21/2022 Insurance Providers Payer Name Payer Address Payer Phone Subscriber Number Group Number Insured Name Patient Relationship to Insured Coverage Start Date Coverage End Date Medicare National [employer] [address] [place] [address] [id number] Suraj Bee Self - patient is the insured [employer] ([facility]) [address] [place] [address] [phone] [id number] Suraj Bee Self - patient is the insured Medical (General) History Medical History History ICD Code Arthritis Cancer Heart disease raynauds disease Measles Mumps Chicken pox HTN Surgical History Surgery Date(Month/Year) Closure of PSO 08/2007 MOHS 10/2021
--- OUTSIDE RECORDS SUMMARY | 2025-08-24 15:06 | XMS_ITS | Encounter Summary ---
Author Organization [facility] Address [address] [place] [address] Phone Care Team Providers Care Ship Purser Name Role Phone Douglas Díaz MD Primary Care Provider [phone] Encounter Details Date Type Department Care Team (Late st Contact Info) Description 10/13/2015 Epic[facility]Hand Encounter [facility] [address] [place] [address] Fransisco Ruby MD, PhD [address] [place] [address], [address] [place] [address] [email or web address] Social History Tobacco Use Types Packs/Day Years [...] Description 08/22/2026 10:40 AM EST Office Visit [facility] [address] [place] [address] Fransisco Ruby MD, PhD [address] [place] [address], [address] [place] [address] [email or web address] documented as of this encounter Visit Diagnoses Not on filedocumented in this encounter Additional Health Concerns Assessment Noted Time PHQ-9 Depression Total Score: 0 08/08/20 10:37 AM EST PHQ-2 Depression Total Score: 0 08/08/20 10:37 AM EST documented as of this encounter Care Teams Ship Purser Relationship Specialty Start Date End Date Douglas Díaz MD [address] [place] [address] [address] [place] [address] PCP - General Internal Medicine 08/08/15 documented as of this encounter Additional Source Comments The information contained in this document represents components of the legal health record. It is not the complete legal health record.[facility]
== END 2025-08-24 15:34 | disposition home or self-care (01) ==
LOC: HO.HUSH 14:50
PROVIDERS: PCP Internal Medicine; Visit Provider Urology
DX: R97.20 Elevated prostate specific antigen [PSA] (principal); N40.1 Benign prostatic hyperplasia with lower urinary tract symptoms; N13.8 Other obstructive and reflux uropathy
CPT/HCPCS: 99214

== ENCOUNTER → 2025-08-24 14:49 | Outpatient (BNVA) | payer MEDICARE, OTHER, SELFPAY | PROVIDERS: PCP Internal Medicine; Visit Provider Urology | DX: R97.20 Elevated prostate specific antigen [PSA] (principal); N40.1 Benign prostatic hyperplasia with lower urinary tract symptoms; N13.8 Other obstructive and reflux uropathy | CPT/HCPCS: 51798; 99212 ==

== ENCOUNTER 2025-09-07 08:41 | Outpatient (AMB) | payer MEDICARE, OTHER, SELFPAY ==
[2025-09-07 08:54] VITALS: BMI 24.7
--- NOTE | 2025-09-07 08:54 | A.OFFVIS_ITS ---
Vital Signs 09/07/25 08:54 Height 5 ft 6 in Weight 153 lb BMI 24.7 Intake Visit Reasons: Left foot pain Intake Note: Suraj is a 74 year old male who presents today for a follow up on his left foot pain. At his last visit he was advised to perform stretching exercises and hand out was dispensed. He was also referred to PT. Patient reports he has seen improvement in regards to his pain and he has started seeing PT on 08/30/25 and he has had 6 sessions so far. He mentions he still has callous on the back of his ankle. Allergies No Known Allergies Allergy (Verified 09/07/25 08:59) HPI HPI Left foot pain: Details: The patient is a 74-year-old male presenting with left Achilles tendon swelling. He is on 6 sessions of physical therapy so far, which he states he has seen improvement from. He has been using the gel heel lifts which have helped his symptoms. He has also been using a crest pad for his right foot which helps relieve his toe pain. History: The symptoms first began in July following increased physical activi ty, including walking two miles, which led to back pain that resolved after five days. Subsequently, the patient noticed swelling and a protruding mass over the Achilles tendon, which became painful when wearing shoes. He notes he does not have pain to the ankle when walking or going upstairs at this point, and the pain is present typically only when he is wearing shoes that rub against the Achilles tendon swelling. He states he typically walks over 2 miles however he has been avoiding a due to the Achilles pain. He is still using the elliptical and stationary bike to maintain his cardiac catheterization. Additionally, the patient complains of right 2nd digit swelling and pain. Medical History: - Aortic aneurysm Medications: - Cardiac medications (specific medications not detailed) Social History: - Engages in regular physical activity, including walking and using an exercise bike. [facility] Medical History COVID-19 vaccine series completed Skin cancer Annual physical exam Patent foramen ovale Mercury poisoning Cardiomyopathy Hypercholesterolemia PSA elevation Impaired fasting glucose Coronary artery disease Thrombophlebitis Surgical History H/O colonoscopy History of surgery Family History Father CHF (congestive heart failure) CAD (coronary artery disease) CVD (cardiovascular disease) Skin cancer Mother CVD (cardiovascular disease) Acute CVA (cerebrovascular accident) Paternal Grandfather Acute CVA (cerebrovascular accident) Maternal Grandfather CAD (coronary artery disease) Social History Housing: House Alcohol intake: current Comment: once a day 1 glass dinner Patient Tobacco Use Status: Never used Tobacco Tobacco use type: Cigarette e-Cigarette/Vaping Use: Never Used Second Hand Smoke Exposure: No Current occupational status: retired Cognitive needs: No Hearing needs: No Vision needs: Yes Review of Systems Const All systems reviewed & are unremarkable except as noted in HPI and below Physical Exam Vital Signs: BMI result Body Mass Index 24.7 Extrem Other: *Bilateral Lower Extremity Focused Exam Vascular: DP/PT 2/4, CFT less than 3 seconds all digits, temperature gradient warm to cool. Mild fusiform edema to the left Achilles, 3 cm from insertion. Derm: No open wounds or clinical signs of infection to the left leg. Right dorsal 2nd DIPJ mild edema and erythema. Neuro: Protective sensation grossly intact to bilateral lower extremities MSK: Moderate tenderness on palpation of the dorsal 2nd DIPJ right foot. No tenderness on palpation of the left Achilles tendon. Plantar flexion and dorsiflexion 5/5 bilateral lower extremities. Mild tenderness of the left Achilles tendon on maximum dorsiflexion. Results Reviewed Results Reviewed: Podiatry X-ray Read: 07/30/2025 X-ray left foot 3 views (AP, MO, Lateral) reviewed which shows mild flattening of the 1st metatarsal head, mild joint space narrowing. No insertional spurring of the calcaneus. Mild decreased bone density to the left forefoot and the metatarsal bases. I personally reviewed the imaging and my findings are listed above. Assessment & Plan Assessment & Plan (1) Achilles tendinitis of left lower extremity: Code(s): M76.62 - Achilles tendinitis, left leg Category: Medical Plan: * Continue stretching and strengthening exercises for left Achilles tendon. * Continue use of a heel lift. * Avoid high impact activities, treadmill, and long durations of walking. * Complete physical therapy course * Referred for left ankle MRI to rule out Achilles tendon tear due to persistent fusiform swelling, pain, and symptoms despite conservative treatment options. * Follow up in 4-6 weeks after the patient returns from vacation (2) Acquired hammer toe of right foot: Code(s): M20.41 - Other hammer toe(s) (acquired), right foot Category: Medical Plan: * Recommend shoes with a wide toe box * Continue hammertoe crest pad Orders: Orders MR ankle LT wo con Today M76.62 - Achilles tendinitis, left leg Coding Level of Care Code Est Pt Level 3 (58070) Diagnoses Achilles tendinitis of left lower extremity M76.62 Acquired hammer toe of right foot M20.41 Time Spent (min) 20
== END 2025-09-07 09:07 | disposition home or self-care (01) ==
LOC: HO.HPODS 08:42
PROVIDERS: PCP Internal Medicine; Visit Provider Student in an Organized Health Care Education/Training Program
DX: M76.62 Achilles tendinitis, left leg (principal); M20.41 Other hammer toe(s) (acquired), right foot
CPT/HCPCS: 99213

== ENCOUNTER → 2025-09-07 08:41 | Outpatient (BNVA) | payer MEDICARE, OTHER, SELFPAY | PROVIDERS: PCP Internal Medicine; Visit Provider Student in an Organized Health Care Education/Training Program | DX: M76.62 Achilles tendinitis, left leg (principal); M20.41 Other hammer toe(s) (acquired), right foot | CPT/HCPCS: 99212 ==